=== PATIENT | female | born 1965 ===

== ENCOUNTER 2017-01-28 00:49 | Emergency (ER) | payer MEDICARE, OTHER ==
[2017-01-28 00:49] VITALS: BMI 32.8
[2017-01-28 00:59] VITALS: RESP 20; O2SAT 96
--- NOTE | 2017-01-28 02:15 | C.PDOC ---
History Of Present Illness 51 year old female with an extensive psychiatric Hx who was brought to the ER by relative after he states she was behaving bizarre. As per relative, patient has been "speaking as if there were kids and helicopters around her". Relative also reports patient is noncompliant with her medication; he notes patient is a known patient of Dr. Leslie at the outpatient clinic. Patient has not verbalized any physical complaints at this time. Time Seen by Provider: 01/28/17 01:14 Chief Complaint (Nursing): Psychiatric Evaluation History Per: Patient History/Exam Limitations: no limitations Onset/Duration Of Symptoms: Days Current Symptoms Are (Timing): Still Present Suicide/Self Injury Attempted (Context): None Modifying Factor(s): None Associated Symptoms: denies: Depression, Suicidal Thoughts, Suicidal Plan Involuntary Hold By: None Recent travel outside of the [place]: No Past Medical History Reviewed: Historical Data, Nursing Documentation, Vital Signs Vital Signs: Last Vital Signs Temp 98.2 F 01/28/17 02:20 Pulse 106 H 01/28/17 02:20 Resp 20 01/28/17 02:20 BP 121/80 01/28/17 02:20 Pulse Ox 96 01/28/17 02:42 - Medical History PMH: Anxiety, Back Problems, Bipolar Disorder, Depression, Diabetes, Gastrointestinal Ulcer, Gall Bladder Disease, HTN, Kidney Stones Surgical History: Appendectomy, Cholecystectomy - [facility] Procedures ANESTH INJECT-SPIN CANAL (06/06/14) DRAINAGE OF SIGMOID COLON, ENDO, DIAGN (05/18/16) INDIVID PSYCHOTHERAP NEC (02/12/15) INJECT STEROID (07/18/14) INJECT/INFUSE NEC (07/18/14) INJECTION INTO JOINT (07/18/14) LUMBOSAC SPINE X-RAY NEC (07/18/14) OTHER GROUP THERAPY (02/12/15) PERIPH NERVE DESTRUCTION (09/12/14) PHYSICAL THERAPY NEC (03/26/14) PSYCHIAT DRUG THERAP NEC (02/12/15) SPINAL CANAL INJECT NEC (06/06/14) Family History: States: Unknown Family Hx - Social History Hx Tobacco Use: Yes Hx Alcohol Use: Yes Hx Substance Use: No - Immunization History Hx Tetanus Toxoid Vaccination: No Hx Influenza Vaccination: No Hx Pneumococcal Vaccination: No Review Of Systems Constitutional: Negative for: Fever, Chills Gastrointestinal: Negative for: Nausea, Vomiting, Diarrhea Physical Exam - Physical Exam Appears: Non-toxic, No Acute Distress Skin: Normal Color, Warm, Dry Head: Atraumatic, Normacephalic Eye(s): bilateral: Normal Inspection Oral Mucosa: Moist Cardiovascular: Rhythm Regular Respiratory: Normal Breath Sounds, No Accessory Muscle Use Extremity: Normal ROM Extremity: Bilateral: Atraumatic Neurological/Psych: Oriented x3, Normal Speech, Normal Cognition Gait: Steady ED Course And Treatment O2 Sat by Pulse Oximetry: 96 (Room air) Pulse Ox Interpretation: Normal Progress Note: Patient was evaluated by Crisis and case was discussed with Dr. Reyes who advised to discharge patient and have them follow up with Dr. Leslie at the outpatient clinic. Disposition Counseled Patient/Family Regarding: Diagnosis, Need For Followup, Rx Given - Disposition Disposition: HOME/ ROUTINE Disposition Time: 02:14 Condition: STABLE Additional Instructions: Please keep appointment with Dr Leslie as scheduled for nxt week Continue all your meds Return to ER if worse Instructions: Depression (ED) Forms: [employer] (Pashto) - Clinical Impression Clinical Impression: Moderate major depression, single episode - Scribe Statement The provider has reviewed the documentation as recorded by the Scribnicole Cordova All medical record entries made by the Scribe were at my direction and personally dictated by me. I have reviewed the chart and agree that the record accurately reflects my personal performance of the history, physical exam, medical decision making, and the department course for this patient. I have also personally directed, reviewed, and agree with the discharge instructions and disposition.
[2017-01-28 02:21] VITALS: BP 121/80; PULSE 106; TEMP 98.2
== END 2017-01-28 02:42 | disposition home or self-care (01) ==
LOC: C.ER 00:49
DX: F32.1 Major depressive disorder, single episode, moderate (principal); Z91.14 Patient's other noncompliance with medication regimen

== ENCOUNTER 2017-03-16 18:14 | Emergency (ER) | payer MEDICARE, OTHER ==
[2017-03-16 18:14] VITALS: BMI 32.8
[2017-03-16] MEDS ORDERED: Sodium Chloride 0.9% 1,000 ML IV ONE (19:34)
[2017-03-16 20:09] LABS: CHLORIDE 99 mmol/L (98-107); POTASSIUM 3.8 mmol/L (3.6-5.2); SODIUM 134 mmol/L (132-148)
[2017-03-16 20:11] LABS: ALB/GLOB RATIO 1.3 (1.0-2.1); ALKALINE PHOSPHATASE 62 U/L (38-126); AST/SGOT 49 U/L (14-36); BILIRUBIN,TOTAL 0.4 mg/dL (0.2-1.3); BLOOD UREA NITROGEN 10 mg/dL (7-17); CARBON DIOXIDE 27 mmol/L (22-30); GFR AFRICAN-AMERICAN > 60; TOTAL PROTEIN 6.8 g/dL (6.3-8.3)
[2017-03-16 20:12] LABS: ALT/SGPT 45 U/L (9-52); CALCIUM 9.4 mg/dl (8.6-10.4); GLUCOSE,RANDOM 92 mg/dL (65-105); MAGNESIUM 1.5 mg/dL (1.6-2.3)
[2017-03-16 20:21] LABS: BASO # 0.1 K/uL (0.0-0.2); BASO % 1.1 % (0.0-2.0); EOS # 0.4 K/uL (0.0-0.7); EOS % 3.2 % (0.0-4.0); HEMATOCRIT 39.1 % (34.0-47.0); LYMPH # 5.7 K/uL (1.0-4.3); LYMPH % 48.1 % (20.0-40.0); MEAN CELL VOLUME 92.2 fL (81.0-99.0); MEAN CORPUSCULAR HEMOGLOBIN 31.6 pg (27.0-31.0); MEAN CORPUSCULAR HGB CONC 34.3 g/dL (33.0-37.0); MEAN PLATELET VOLUME 8.5 fL (7.2-11.7); MONO # 0.7 K/uL (0.0-0.8); MONO % 6.1 % (0.0-10.0); RED CELL DISTRIBUTION WIDTH 13.2 % (11.5-14.5); WHITE BLOOD COUNT 11.9 K/uL (4.8-10.8)
[2017-03-16] MEDS ORDERED: Magnesium Sulfate 1 gm in D5W 1 GM/100 ML BAG IVPB ONE ×2 (20:23→20:44)
--- NOTE | 2017-03-16 20:59 | C.PDOC ---
History Of Present Illness Pt c/o right 4th and 5th finger numbness radiating to right elbow. She denies injury, but thinks that she fell asleep on the couch last night leaning on her right elbow. Time Seen by Provider: 03/16/17 19:16 Chief Complaint (Nursing): Weakness/Neurological Deficit History Per: Patient Onset/Duration Of Symptoms: Hrs (since waking up this morning) Current Symptoms Are (Timing): Still Present Quality: Other (tingling/numbness) Severity: Moderate Hands/Wrist (Pic): 1 - Tingling/numbness Additional History Per: Prior Records Past Medical History Reviewed: Historical Data, Nursing Documentation, Vital Signs Vital Signs: Last Vital Signs Temp 98.1 F 03/16/17 18:21 Pulse 89 03/16/17 18:21 Resp 18 03/16/17 18:21 BP 93/64 L 03/16/17 18:21 Pulse Ox 94 L 03/16/17 18:21 - Medical History PMH: Anxiety, Back Problems, Bipolar Disorder, Depression, Diabetes, Gastrointestinal Ulcer, Gall Bladder Disease, HTN, Kidney Stones Surgical History: Appendectomy, Cholecystectomy - [facility] Procedures ANESTH INJECT-SPIN CANAL (06/06/14) DRAINAGE OF SIGMOID COLON, ENDO, DIAGN (05/18/16) INDIVID PSYCHOTHERAP NEC (02/12/15) INJECT STEROID (07/18/14) INJECT/INFUSE NEC (07/18/14) INJECTION INTO JOINT (07/18/14) LUMBOSAC SPINE X-RAY NEC (07/18/14) OTHER GROUP THERAPY (02/12/15) PERIPH NERVE DESTRUCTION (09/12/14) PHYSICAL THERAPY NEC (03/26/14) PSYCHIAT DRUG THERAP NEC (02/12/15) SPINAL CANAL INJECT NEC (06/06/14) Family History: States: Unknown Family Hx - Social History Hx Tobacco Use: Yes Hx Alcohol Use: Yes Hx Substance Use: No - Immunization History Hx Tetanus Toxoid Vaccination: No Hx Influenza Vaccination: No Hx Pneumococcal Vaccination: No Review Of Systems Except As Marked, All Systems Reviewed And Found Negative. Constitutional: Negative for: Fever Cardiovascular: Positive for: Light Headedness. Negative for: Chest Pain Respiratory: Negative for: Shortness of Breath Gastrointestinal: Negative for: Vomiting, Abdominal Pain, Diarrhea Musculoskeletal: Negative for: Neck Pain Skin: Negative for: Rash Neurological: Positive for: Numbness (right 4th and 5th fingers). Negative for : Weakness, Seizures Physical Exam - Physical Exam Appears: Non-toxic, No Acute Distress Skin: Normal Color, Warm, Dry, No Rash Head: Atraumatic, Normacephalic Eye(s): bilateral: PERRL, EOMI Neck: Normal ROM, No Midline Cervical Tenderness, No Step Off Deformity, Supple Cardiovascular: Rhythm Regular Respiratory: Normal Breath Sounds, No Accessory Muscle Use Gastrointestinal/Abdominal: Soft, No Tenderness Back: No CVA Tenderness Extremity: Normal ROM, Tenderness (mild at medial right elbow), Capillary Refill (wnl), No Deformity, No Swelling Extremity: Bilateral: Normal Color And Temperature Pulses: Right Radial: Normal Neurological/Psych: Oriented x3, Normal Motor, No Normal Sensation (numbness to right 5th and half of 4th fingers) ED Course And Treatment - Laboratory Results Result Diagrams: 03/16/17 19:56 03/16/17 19:56 ECG: Interpreted By Me, Viewed By Me ECG Rhythm: Sinus Rhythm ECG Interpretation: No Acute Changes Rate From EC O2 Sat by Pulse Oximetry: 94 Progress - Interventions Interventions:: Observation, Intravenous fluid - Medications Administered Intravenous: NSAID, Other (Mg) - Data Reviewed Data Reviewed: Lab, EKG, Old records - Patient Status Patient status: Partially improved - Continuity of Care Discussed patient case with:: Patient, Family-HIPPA compliant, ED Nurse - Patient Plan Patient Plan: Discharge, F/U with PCP, Continue present meds Disposition Counseled Patient/Family Regarding: Studies Performed, Diagnosis, Need For Followup - Disposition Referrals: Edin Mcfadden MD [Staff Provider] - Disposition: HOME/ ROUTINE Disposition Time: 21:02 Condition: STABLE Additional Instructions: Avoid pressure on your right elbow. Follow up with the Hand specialist this week for further evaluation and treatment. Return to the ER if you develop worsening of symptoms or if you have any other concerns. Instructions: Peripheral Neuropathy (ED) Forms: [employer] (Bahamian) - Clinical Impression Clinical Impression: Ulnar nerve neuropathy
[2017-03-16 21:36] VITALS: BP 92/52; PULSE 78; RESP 16; TEMP 97.6; O2SAT 96
--- NOTE | 2017-03-17 23:45 | CARD ---
APPROVED REPORT EKG Measurement Heart [id number] <Conclusion> Normal sinus rhythm Normal ECG
== END 2017-03-16 21:30 | disposition home or self-care (01) ==
LOC: C.ER 18:14
DX: G56.21 Lesion of ulnar nerve, right upper limb (principal)
CPT/HCPCS: 80053; 83735; 85025; 93005; 96361; 96365; 96375; 99285; J1885; J3475; J7040

== ENCOUNTER 2017-06-18 19:39 | Emergency (ER) | payer MEDICARE, OTHER ==
[2017-06-18 19:39] VITALS: BMI 32.8
[2017-06-18 20:39] VITALS: RESP 16
--- NOTE | 2017-06-18 20:53 | C.PDOC ---
History Of Present Illness <Fito Denise - Last Filed: 06/18/17 20:57> <Jim Massey - Last Filed: 06/19/17 05:57> 52 yr old female with extensive psych history, presents to the ER for acting weird as per room mate who is at bedside. Patient is not compliant with medications. Denies SI, HI, chest pain, SOB, nausea, vomiting, weakness or numbness. (Fito Denise) History Per: Patient History/Exam Limitations: no limitations Onset/Duration Of Symptoms: Days Current Symptoms Are (Timing): Still Present Suicide/Self Injury Attempted (Context): None <Fito Denise - Last Filed: 06/18/17 20:57> <Jim Massey - Last Filed: 06/19/17 05:57> Time Seen by Provider: 06/18/17 20:48 Chief Complaint (Nursing): Psychiatric Evaluation Past Medical History Reviewed: Historical Data, Nursing Documentation, Vital Signs - Medical History PMH: Anxiety, Back Problems, Bipolar Disorder, Depression, Diabetes, Gastrointestinal Ulcer, Gall Bladder Disease, HTN, Kidney Stones Surgical History: Appendectomy, Cholecystectomy Family History: States: No Known Family Hx - Social History Hx Tobacco Use: Yes Hx Alcohol Use: Yes Hx Substance Use: Yes - Immunization History Hx Tetanus Toxoid Vaccination: No Hx Influenza Vaccination: No Hx Pneumococcal Vaccination: No <Fito Denise - Last Filed: 06/18/17 20:57> Vital Signs: Last Vital Signs Temp 9 F L 06/19/17 00:15 Pulse 83 06/19/17 00:15 Resp 16 06/19/17 00:15 BP 115/69 06/19/17 00:15 Pulse Ox 98 06/19/17 00:15 - [facility] Procedures ANESTH INJECT-SPIN CANAL (06/06/14) DRAINAGE OF SIGMOID COLON, ENDO, DIAGN (05/18/16) INDIVID PSYCHOTHERAP NEC (02/12/15) INJECT STEROID (07/18/14) INJECT/INFUSE NEC (07/18/14) INJECTION INTO JOINT (07/18/14) LUMBOSAC SPINE X-RAY NEC (07/18/14) OTHER GROUP THERAPY (02/12/15) PERIPH NERVE DESTRUCTION (09/12/14) PHYSICAL THERAPY NEC (03/26/14) PSYCHIAT DRUG THERAP NEC (02/12/15) SPINAL CANAL INJECT NEC (06/06/14) Review Of Systems Except As Marked, All Systems Reviewed And Found Negative. Cardiovascular: Negative for: Chest Pain Respiratory: Negative for: Shortness of Breath Gastrointestinal: Negative for: Nausea, Vomiting Neurological: Negative for: Weakness, Numbness Psych: Negative for: Suicidal ideation <Fito Denise - Last Filed: 06/18/17 20:57> Physical Exam - Physical Exam Appears: Non-toxic, No Acute Distress Skin: Warm, Dry, No Rash Oral Mucosa: Moist Cardiovascular: Rhythm Regular, No Murmur Respiratory: Normal Breath Sounds, No Rales, No Rhonchi, No Stridor, No Wheezing Extremity: Normal ROM, No Swelling Neurological/Psych: Oriented x3, Normal Speech <Fito Denise - Last Filed: 06/18/17 20:57> ED Course And Treatment O2 Sat by Pulse Oximetry: 96 (RA) Pulse Ox Interpretation: Normal <Fito Denise - Last Filed: 06/18/17 20:57> - Laboratory Results Result Diagrams: 06/18/17 21:18 06/18/17 21:18 Pulse Ox Interpretation: Normal Progress Note: pt cleared for discharg by dr davis. Reevaluation Time: 05:57 Reassessment Condition: Improved <Jim Massey - Last Filed: 06/19/17 05:57> Medical Decision Making <Fito Denise - Last Filed: 06/18/17 20:57> <Jim Massey - Last Filed: 06/19/17 05:57> Medical Decision Making: PLAN: * CBC * CMP * Alcohol Serum * Drug Screen * HCG * Urinalysis (Fito Denise) Disposition <Fito Denise - Last Filed: 06/18/17 20:57> Counseled Patient/Family Regarding: Studies Performed, Diagnosis, Need For Followup - Disposition Disposition Time: 01:00 <Jim Massey - Last Filed: 06/19/17 05:57> - Disposition Disposition: HOME/ ROUTINE Condition: FAIR Instructions: Schizoaffective Disorder (ED) Forms: [employer] (Spanish) - Clinical Impression Clinical Impression: Schizoaffective disorder - Scribe Statement The provider has reviewed the documentation as recorded by the Scribe <Fito Denise - Last Filed: 06/18/17 20:57> <Jim Massey - Last Filed: 06/19/17 05:57> - Scribe Statement Nelda North (Fito Denise) Provider Attestation: All medical record entries made by the Scribe were at my direction and personally dictated by me. I have reviewed the chart and agree that the record accurately reflects my personal performance of the history, physical exam, medical decision making, and the department course for this patient. I have also personally directed, reviewed, and agree with the discharge instructions and disposition. (Fito Denise)
[2017-06-18 21:22] LABS: BASO # 0.1 K/uL (0.0-0.2); BASO % 1.5 % (0.0-2.0); EOS # 0.5 K/uL (0.0-0.7); HEMOGLOBIN 11.9 g/dL (11.0-16.0); LYMPH # 4.7 K/uL (1.0-4.3); LYMPH % 51.9 % (20.0-40.0); MEAN CORPUSCULAR HEMOGLOBIN 32.5 pg (27.0-31.0); MEAN CORPUSCULAR HGB CONC 34.9 g/dL (33.0-37.0); MEAN PLATELET VOLUME 7.8 fL (7.2-11.7); MONO # 0.7 K/uL (0.0-0.8); MONO % 7.4 % (0.0-10.0); NEUT # 3.1 K/uL (1.8-7.0); NEUT % 34.2 % (50.0-75.0); NRBC % 0.1 % (0.0-2.0); RBC 3.68 Mil/uL (3.80-5.20); RED CELL DISTRIBUTION WIDTH 13.6 % (11.5-14.5)
[2017-06-18 21:34] LABS: SALICYLATE < 1.0 mg/dL 1
[2017-06-18 21:35] LABS: ALB/GLOB RATIO 1.1 (1.0-2.1); ALBUMIN 3.4 g/dL (3.5-5.0); ALT/SGPT 27 U/L (9-52); AST/SGOT 17 U/L (14-36); BLOOD UREA NITROGEN 12 mg/dL (7-17); CALCIUM 9.4 mg/dl (8.6-10.4); GFR AFRICAN-AMERICAN > 60; GFR NON-AFRICAN AMERICAN > 60
[2017-06-19 00:16] VITALS: O2SAT 98
[2017-06-19 04:24] LABS: HCG,QUALITATIVE URINE NEGATIVE (NEGATIVE)
[2017-06-19 04:30] LABS: SQUAMOUS EPITHIAL 1 /hpf (0-5); URINE AMORPHOUS SEDIMENT OCC /ul (<OCC); URINE BACTERIA MANY (<OCC); URINE BILIRUBIN NEGATIVE (NEGATIVE); URINE BLOOD NEGATIVE (NEGATIVE); URINE CLARITY Hazy (Clear); URINE COLOR Yellow (YELLOW); URINE GLUCOSE (UA) NORMAL (Normal); URINE LEUKOCYTE ESTERASE TRACE Leu/uL (Negative); URINE NITRATE POSITIVE (NEGATIVE); URINE PROTEIN NEGATIVE (NEGATIVE); URINE UROBILINOGEN NORMAL mg/dL (0.2-1.0)
[2017-06-19 04:39] LABS: BARBITURATES, UR NEGATIVE (NEGATIVE); PHENCYCLIDINE, UR NEGATIVE (NEGATIVE)
[2017-06-19 04:45] LABS: BENZODIAZEPINES, UR POSITIVE (NEGATIVE); OPIATES, UR POSITIVE (NEGATIVE)
[2017-06-19 06:36] VITALS: BP 120/73; PULSE 80; TEMP 98
== END 2017-06-19 06:30 | disposition home or self-care (01) ==
LOC: C.ER 19:39
DX: F25.9 Schizoaffective disorder, unspecified (principal)
CPT/HCPCS: 80053; 81001; 84703; 85025; 99284; G0480

== ENCOUNTER 2017-10-09 15:52 | Emergency (ER) | payer MEDICARE, OTHER ==
[2017-10-09 15:53] VITALS: BMI 32.8
[2017-10-09 16:06] VITALS: O2SAT 96
[2017-10-09 16:30] LABS: BASO # 0.2 K/uL (0.0-0.2); BASO % 1.7 % (0.0-2.0); EOS # 0.5 K/uL (0.0-0.7); EOS % 4.3 % (0.0-4.0); HEMOGLOBIN 13.1 g/dL (11.0-16.0); LYMPH # 5.3 K/uL (1.0-4.3); LYMPH % 46.7 % (20.0-40.0); MEAN CORPUSCULAR HEMOGLOBIN 31.9 pg (27.0-31.0); MEAN CORPUSCULAR HGB CONC 34.3 g/dL (33.0-37.0); MEAN PLATELET VOLUME 8.1 fL (7.2-11.7); MONO # 0.8 K/uL (0.0-0.8); MONO % 6.8 % (0.0-10.0); NEUT # 4.6 K/uL (1.8-7.0); NEUT % 40.5 % (50.0-75.0); NRBC % 0.1 % (0.0-2.0); RBC 4.12 Mil/uL (3.80-5.20); RED CELL DISTRIBUTION WIDTH 13.4 % (11.5-14.5); WHITE BLOOD COUNT 11.3 K/uL (4.8-10.8)
[2017-10-09 16:43] LABS: ALB/GLOB RATIO 1.2 (1.0-2.1); ALBUMIN 3.9 g/dL (3.5-5.0); ALT/SGPT 28 U/L (9-52); AST/SGOT 19 U/L (14-36); BLOOD UREA NITROGEN 14 mg/dL (7-17); CALCIUM 10.1 mg/dl (8.6-10.4); GFR AFRICAN-AMERICAN > 60; GFR NON-AFRICAN AMERICAN > 60
[2017-10-09 16:45] LABS: ACETAMINOPHEN < 10.0 ug/mL (10.0-30.0); SALICYLATE < 1.0 mg/dL 1
[2017-10-09 16:51] LABS: HCG,QUALITATIVE URINE NEGATIVE (NEGATIVE)
[2017-10-09 16:53] LABS: URINE BACTERIA MOD (<OCC); URINE BILIRUBIN NEGATIVE (NEGATIVE); URINE BLOOD NEGATIVE (NEGATIVE); URINE CLARITY Hazy (Clear); URINE COLOR Yellow (YELLOW); URINE GLUCOSE (UA) NORMAL (Normal); URINE LEUKOCYTE ESTERASE NEG Leu/uL (Negative); URINE PROTEIN NEGATIVE (NEGATIVE); URINE UROBILINOGEN NORMAL mg/dL (0.2-1.0)
[2017-10-09] MEDS ORDERED: Tmp-Smz 800 mg-160 mg DS Tab PO STA (17:04)
[2017-10-09 17:06] LABS: BARBITURATES, UR NEGATIVE (NEGATIVE); OPIATES, UR NEGATIVE (NEGATIVE); PHENCYCLIDINE, UR NEGATIVE (NEGATIVE)
[2017-10-09 17:07] LABS: BENZODIAZEPINES, UR POSITIVE (NEGATIVE)
--- NOTE | 2017-10-09 17:20 | C.PDOC ---
History Of Present Illness 52 y/o female presents to ED for complaints of SI. Patient states symptoms began after an argument with spouse. Admits to alcohol and cocain use for the past 4 weeks. Denies auditory or visual hallucination, or any other complaints. Time Seen by Provider: 10/09/17 16:00 Chief Complaint (Nursing): Psychiatric Evaluation History Per: Patient History/Exam Limitations: no limitations Onset/Duration Of Symptoms: Hrs Current Symptoms Are (Timing): Still Present Suicide/Self Injury Attempted (Context): None Modifying Factor(s): Alcohol, Cocaine Associated Symptoms: Suicidal Thoughts. denies: Suicidal Plan Involuntary Hold By: None Recent travel outside of the [place]: No Past Medical History Reviewed: Historical Data, Nursing Documentation, Vital Signs Vital Signs: Last Vital Signs Temp 97.6 F 10/09/17 18:26 Pulse 64 10/09/17 18:26 Resp 14 10/09/17 18:26 BP 100/65 10/09/17 18:26 Pulse Ox 96 10/09/17 18:26 - Medical History PMH: Anxiety, Back Problems, Bipolar Disorder, Depression, Diabetes, Gastrointestinal Ulcer, Gall Bladder Disease, HTN, Kidney Stones Surgical History: Appendectomy, Cholecystectomy - [facility] Procedures ANESTH INJECT-SPIN CANAL (06/06/14) DRAINAGE OF SIGMOID COLON, ENDO, DIAGN (05/18/16) INDIVID PSYCHOTHERAP NEC (02/12/15) INJECT STEROID (07/18/14) INJECT/INFUSE NEC (07/18/14) INJECTION INTO JOINT (07/18/14) LUMBOSAC SPINE X-RAY NEC (07/18/14) OTHER GROUP THERAPY (02/12/15) PERIPH NERVE DESTRUCTION (09/12/14) PHYSICAL THERAPY NEC (03/26/14) PSYCHIAT DRUG THERAP NEC (02/12/15) SPINAL CANAL INJECT NEC (06/06/14) Family History: States: Unknown Family Hx - Social History Hx Tobacco Use: Yes Hx Alcohol Use: Yes Hx Substance Use: Yes - Immunization History Hx Tetanus Toxoid Vaccination: No Hx Influenza Vaccination: No Hx Pneumococcal Vaccination: No Review Of Systems Except As Marked, All Systems Reviewed And Found Negative. Psych: Positive for: Suicidal ideation Physical Exam - Physical Exam Appears: Well, Non-toxic, No Acute Distress Skin: Normal Color, Warm, Dry Head: Atraumatic, Normacephalic Eye(s): bilateral: Normal Inspection, PERRL, EOMI Oral Mucosa: Moist Neck: Supple Chest: Symmetrical, No Tenderness Cardiovascular: Rhythm Regular Respiratory: Normal Breath Sounds, No Decreased Breath Sounds, No Rales, No Rhonchi, No Wheezing Gastrointestinal/Abdominal: Normal Exam, Soft, No Tenderness Extremity: Normal ROM, No Deformity Extremity: Bilateral: Atraumatic, Normal Color And Temperature, Normal ROM Neurological/Psych: Oriented x3, Normal Speech, Normal Cognition Gait: Steady ED Course And Treatment - Laboratory Results Result Diagrams: 10/09/17 16:25 10/09/17 16:25 O2 Sat by Pulse Oximetry: 96 (RA) Pulse Ox Interpretation: Normal Medical Decision Making Medical Decision Making: Administered bactrim. Ordered urine culture, blood work and urinalysis. Crisis notified. Impression: - SI Patient is medically cleared by crisis. Disposition - Disposition Disposition Time: 19:00 Condition: STABLE Forms: [email or web address] (Romanian) - Clinical Impression Clinical Impression: Suicide ideation, Substance abuse - Scribe Statement The provider has reviewed the documentation as recorded by the Scribe Austin Gardner All medical record entries made by the Scribe were at my direction and personally dictated by me. I have reviewed the chart and agree that the record accurately reflects my personal performance of the history, physical exam, medical decision making, and the department course for this patient. I have also personally directed, reviewed, and agree with the discharge instructions and disposition. Physician Patient Turnover Patient Signed Over To: Jim Massey Handoff Comments: pending crisis evaluation and disposition
[2017-10-09 18:27] VITALS: BP 100/65; PULSE 64; RESP 14; TEMP 97.6
[2017-10-09] MEDS ORDERED: Tmp-Smz 800 mg-160 mg DS Tab ONE (18:30)
== END 2017-10-09 19:13 | disposition home or self-care (01) ==
LOC: C.ER 15:52
DX: F32.9 Major depressive disorder, single episode, unspecified (principal); R45.851 Suicidal ideations; F19.10 Other psychoactive substance abuse, uncomplicated
CPT/HCPCS: 80053; 81001; 82948; 84703; 85025; 99285; G0480

== ENCOUNTER 2017-11-12 15:54 | Inpatient (IN) | payer MEDICARE, OTHER ==
[2017-11-12 15:54] VITALS: BMI 32.8
--- NOTE | 2017-11-12 17:37 | C.PDOC ---
History Of Present Illness <Matthew Weston - Last Filed: 11/12/17 17:43> <Babar Layne - Last Filed: 11/12/17 19:43> 52-year-old female presents to the ED for psychiatric evaluation. Patient has been experiencing manic episodes and admits to opioid use. She denies sucidal/ homicidal ideation at this time. (Matthew Weston) History Per: Patient History/Exam Limitations: no limitations Onset/Duration Of Symptoms: Hrs Current Symptoms Are (Timing): Still Present Suicide/Self Injury Attempted (Context): None Associated Symptoms: denies: Suicidal Thoughts, Suicidal Plan Additional History Per: Patient <Matthew Weston - Last Filed: 11/12/17 17:43> <Babar Layne - Last Filed: 11/12/17 19:43> Time Seen by Provider: 11/12/17 17:10 Chief Complaint (Nursing): Psychiatric Evaluation Past Medical History Reviewed: Historical Data, Nursing Documentation, Vital Signs - Medical History PMH: Anxiety, Back Problems, Bipolar Disorder, Depression, Diabetes, Gastrointestinal Ulcer, Gall Bladder Disease, HTN, Kidney Stones Denies: Hepatitis, HIV, Seizures, Sexually Transmitted Disease Surgical History: Appendectomy, Cholecystectomy Family History: States: Unknown Family Hx - Social History Hx Tobacco Use: Yes Hx Alcohol Use: No Hx Substance Use: Yes - Immunization History Hx Tetanus Toxoid Vaccination: No Hx Influenza Vaccination: No Hx Pneumococcal Vaccination: No <Matthew Weston - Last Filed: 11/12/17 17:43> Vital Signs: Last Vital Signs Temp 98.2 F 11/12/17 18:56 Pulse 73 11/12/17 18:56 Resp 20 11/12/17 18:56 BP 101/66 11/12/17 18:56 Pulse Ox 96 11/12/17 18:56 - [facility] Procedures ANESTH INJECT-SPIN CANAL (06/06/14) DRAINAGE OF SIGMOID COLON, ENDO, DIAGN (05/18/16) INDIVID PSYCHOTHERAP NEC (02/12/15) INJECT STEROID (07/18/14) INJECT/INFUSE NEC (07/18/14) INJECTION INTO JOINT (07/18/14) LUMBOSAC SPINE X-RAY NEC (07/18/14) OTHER GROUP THERAPY (02/12/15) PERIPH NERVE DESTRUCTION (04/22/15) PHYSICAL THERAPY NEC (03/26/14) PSYCHIAT DRUG THERAP NEC (02/12/15) SPINAL CANAL INJECT NEC (06/06/14) Review Of Systems Psych: Positive for: Other (manic episodes ). Negative for: Suicidal ideation <Matthew Weston - Last Filed: 11/12/17 17:43> Physical Exam <Matthew Weston T - Last Filed: 11/12/17 17:43> <Babar Layne R - Last Filed: 11/12/17 19:43> - Physical Exam Additional Physical Exam Comments: Constitutional: No acute distress. Head: Normocephalic. Atraumatic. Eyes: PERRL. ENT: Moist mucous membranes. Neck: Supple. Cardiovascular: Regular rate. Chest: No tenderness. Respiratory: Clear to auscultation bilaterally. GI: Soft. Back: No CVA tenderness. Musculoskeletal: No tenderness or swelling of extremities. Skin: No rash. Neurologic: Alert, no focal deficit. (EnricoMatthew Lor) ED Course And Treatment O2 Sat by Pulse Oximetry: 96 (on RA) Pulse Ox Interpretation: Normal Progress Note: Bloodwork and urinalysis ordered and reviewed. <Matthew Weston - Last Filed: 11/12/17 17:43> - Laboratory Results Result Diagrams: 11/12/17 18:44 11/12/17 18:44 <Babar Layne R - Last Filed: 11/12/17 19:43> Disposition <Matthew Weston - Last Filed: 11/12/17 17:43> Discussed With : Billy Leslie Doctor Will See Patient In The: Hospital Counseled Patient/Family Regarding: Diagnosis - Disposition Disposition Time: 19:42 - POA Present On Arrival: None <Babar Layne R - Last Filed: 11/12/17 19:43> - Disposition Disposition: HOSPITALIZED Condition: STABLE Forms: [employer] (Uzbek) - Clinical Impression Clinical Impression: Bipolar disorder - Scribe Statement The provider has reviewed the documentation as recorded by the Scribe (Meera Cardoza) <Matthew Weston T - Last Filed: 11/12/17 17:43> <Babar Layne R - Last Filed: 11/12/17 19:43> - Scribe Statement Provider Attestation: All medical record entries made by the Scribe were at my direction and personally dictated by me. I have reviewed the chart and agree that the record accurately reflects my personal performance of the history, physical exam, medical decision making, and the department course for this patient. I have also personally directed, reviewed, and agree with the discharge instructions and disposition. (Enrico,Matthew Horowitz)
[2017-11-12 18:49] LABS: BASO # 0.1 K/uL (0.0-0.2); BASO % 1.2 % (0.0-2.0); EOS # 0.5 K/uL (0.0-0.7); EOS % 3.9 % (0.0-4.0); HEMOGLOBIN 13.5 g/dL (11.0-16.0); LYMPH # 4.8 K/uL (1.0-4.3); LYMPH % 38.8 % (20.0-40.0); MEAN CORPUSCULAR HEMOGLOBIN 31.2 pg (27.0-31.0); MEAN CORPUSCULAR HGB CONC 33.9 g/dL (33.0-37.0); MEAN PLATELET VOLUME 8.3 fL (7.2-11.7); MONO # 0.7 K/uL (0.0-0.8); MONO % 6.1 % (0.0-10.0); NEUT # 6.2 K/uL (1.8-7.0); NRBC % 0.1 % (0.0-2.0); RBC 4.33 Mil/uL (3.80-5.20); RED CELL DISTRIBUTION WIDTH 13.7 % (11.5-14.5); WHITE BLOOD COUNT 12.3 K/uL (4.8-10.8)
[2017-11-12 18:52] LABS: HCG,QUALITATIVE URINE NEGATIVE (NEGATIVE)
[2017-11-12 18:54] LABS: SQUAMOUS EPITHIAL 28 /hpf (0-5); URINE BILIRUBIN NEGATIVE (NEGATIVE); URINE BLOOD NEGATIVE (NEGATIVE); URINE CLARITY Hazy (Clear); URINE COLOR YELLOW (YELLOW); URINE GLUCOSE (UA) NORMAL (Normal); URINE HYALINE CAST 0-2 /lpf (0-2); URINE LEUKOCYTE ESTERASE 3+ Leu/uL (Negative); URINE PROTEIN NEGATIVE (NEGATIVE); URINE UROBILINOGEN NORMAL mg/dL (0.2-1.0)
[2017-11-12 18:55] LABS: URINE BACTERIA MANY (<OCC)
[2017-11-12 19:03] LABS: ALB/GLOB RATIO 1.2 (1.0-2.1); ALBUMIN 4.3 g/dL (3.5-5.0); ALT/SGPT 16 U/L (9-52); AST/SGOT 24 U/L (14-36); BLOOD UREA NITROGEN 15 mg/dL (7-17); CALCIUM 10.1 mg/dl (8.6-10.4); GFR AFRICAN-AMERICAN > 60; GFR NON-AFRICAN AMERICAN > 60
[2017-11-12 19:11] LABS: BARBITURATES, UR NEGATIVE (NEGATIVE); OPIATES, UR NEGATIVE (NEGATIVE); PHENCYCLIDINE, UR NEGATIVE (NEGATIVE)
[2017-11-12 19:13] LABS: BENZODIAZEPINES, UR POSITIVE (NEGATIVE)
--- NOTE | 2017-11-12 20:23 | PCM.BM ---
<Estrella Spaulding - Last Filed: 11/12/17 20:20> Treatment Plan Problems - Problems identified on initial assessmt Depression Date Initiated: 11/12/17 Time Initiated: 20: Assessment reference: NA Status: Active Substance Abuse Date Initiated: 11/12/17 Time Initiated: 20:21 Assessment reference: NA Status: Active Treatment assets and liabiliti Patient Assests: adapts well, cooperative, educated, motivated, ADL independent , negotiates basic needs, cognitively intact Patient Liabilities: live alone (Lives with aunt), physical pain, financial problems, substance abuse (xanax, Cocaine), medical problems (HTN, stones, Gall bladder) - Milieu Protocol Maintain good personal hygiene: daily Encourage regular showers, daily Remind patient to perform daily oral care, daily Assist patient to perform ADL's (Self) Conduct patient checks and document Observation sheet: Q15 minutes (safety) Maintain personal safety: every shift Educate patient to report safety concerns to staff, every shift Monitor environment for contraband/sharps Medication safety: Monitor for expected outcome, potential side effects: every shift, Assess barriers to learning: every shift, Assess readiness for medication education: every shift <Jaylin Jara - Last Filed: 11/15/17 11:09> Family Contact Family involvement: Patient does not wish Family/SO involvement Family contact: Patient declines to allow family contact at present - Goals for Treatment Patient goals for treatment: "I want to return to [facility] Discharge/Continuing Care - Education Needs Education Needs: Patient Medication, Patient Diagnosis/Disease Process, Patient Coping Skills, Patient Community resources, Patient Activities of Daily Living - Discharge Discharge Criteria: Free of Suicidal thoughts, Normal sleep pattern, Ability to care for self, No longer exhibiting s/s of withdrawal, Reduction of target symptoms Discharge to:: Home - Treatment Team Participation Discussed with Family/SO: No Was Patient/Family/SO present at Treatment Team Meeting: Yes <Marce Salinas - Last Filed: 11/15/17 11:15> Discharge/Continuing Care - Education Needs Education Needs: Patient Medication, Patient Coping Skills
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
--- NOTE | 2017-11-14 21:29 | PCM.PYCHPN ---
Psychiatric Progress Note - Psychiatric Progress Note Patient seen today, length of contact: 15 minutes Patient Chief Complaint: I am not feeling much better. Problems Identified/Issues Discussed: Patient seen, chart reviewed, case discussed with the staff.. Issues related to illness and treatment were discussed with the patient. Reported compliant with treatment with no adverse effects. Tolerating treatment very well. Reported not feeling much better. A Tamiflu evaluation, patient was awake alert oriented x3, had no delusions, no auditory or visual hallucinations, no suicidal ideations or homicidal ideations. Medical Problems: Degenerative disc disease Diagnostic Results: Reviewed DSM 5 Symptoms Update: Some improvement with treatment Medication Change: No Medical Record Reviewed: Yes Mental Status Examination - Cognitive Function Orientation: Person, Place, Situation, Time Memory: Intact Attention: WNL Concentration: WNL Association: WN Fund of Knowledge: [facility] Decription of patient's judgement and insights: Fair - Mood Mood: Depressed - Affect Affect: Depressed - Speech Speech: Appropriate - Formal Thought Process Formal Thought Process: No Impairment Psychotic Thoughts and Behaviors: None - Suicidal Ideation Suicidal Ideation: No - Homicidal Ideation Homicidal Ideation: No Goal/Treatment Plan - Goal/Treatment Plan Need for Continued Stay: Remain at risks for inpatient hospitalization, Discharge may exacerbated symptoms, Severe functional impairment Progress Toward Problem(s) and Goals/Treatment Plan: Patient education. Supportive therapy. CBT for relapse prevention. SC for abstinence. Continue treatment as before. Estimated Date of D/C: 11/23/17 - Smoking Cessation Smoking Cessation Initiated: Yes
[2017-11-15] MEDS ORDERED: Pneumococcal 23-Valent Vaccine IM ONE (10:00)
--- NOTE | 2017-11-15 14:07 | PCM.PYCHPN ---
Psychiatric Progress Note - Psychiatric Progress Note Patient seen today, length of contact: 15 minutes Medication Change: No Medical Record Reviewed: Yes Mental Status Examination - Cognitive Function Orientation: Person, Place, Situation, Time Memory: Intact Attention: WNL Concentration: WNL Association: WNL Fund of Knowledge: WNL - Mood Mood: Depressed - Affect Affect: Depressed - Speech Speech: Appropriate - Formal Thought Process Formal Thought Process: No Impairment - Suicidal Ideation Suicidal Ideation: No - Homicidal Ideation Homicidal Ideation: No Goal/Treatment Plan - Goal/Treatment Plan Need for Continued Stay: Remain at risks for inpatient hospitalization, Discharge may exacerbated symptoms, Severe functional impairment Estimated Date of D/C: 11/23/17
[2017-11-16 06:44] VITALS: RESP 18; O2SAT 100
[2017-11-17 06:24] VITALS: BP 108/60; PULSE 80; TEMP 98.1
--- NOTE | 2017-11-17 09:58 | PCM.PYCHDC ---
Mental Status Examination - Mental Status Examination Orientation: Person, Place, Situation, Time Memory: Intact Mood: Neutral Affect: Constricted Speech: Soft Attention: WNL Concentration: WNL Association: WNL Fund of Knowledge: WNL Formal Thought Process: No Impairment Description of patient's judgement and insight: good, fair Psychotic Thoughts and Behaviors: denies any AVH Suicidal Ideation: No Current Homicidal Ideation?: No Discharge Summary - Discharge Note Reason for Hospitalization: serena is a 52 years old, single, unemployed, female with history of depression and cocaine use was admitted due to worsening of depression and suicidal ideations. Patient who is depressed for last 4 years came with worsening of depression since July 2017 after broke up with boyfriend., decreased sleep and appetite, lost some weight. Suicidal ideations with plan but refused to discuss the plan. History of 2 previous suicidal attempts. First attempt at 19 years of age by cutting on wrists and second attempt at 38 years of age by overdose on sleeping pills. Was admitted in the hospital. Patient has history of 6 inpatient psychiatric admissions.Patient also reported that she hear whispers. Could not elaborate the content of voices. Currently patient was getting treatment from psychiatrist. Patient was getting Celexa 40 mg daily, Remeron 45 mg at bedtime, Xanax, Zyban and Invega Sustinna injection, 234 mg every month , last head 2 days ago. Cocaine: Started at 19 years of age, currently was using 2-3 bags per week, sniffing. Her longest period of abstinence was 4 years from 3714-9143. Percocet: Started in 2013. According to patient she was taking as prescribed but family reported she is abusing Percocet. Smokes 1 pack of cigarettes daily and is requesting for nicotine patch. Patient was born in [place] has a bachelor's degree. Not working since 2013 , on [employer]. Never and has 3 daughters. Patient lives with her aunt. Her height is 5 feet 7 inches and weight is 180 pounds. Consultations:: List each consultation separately and include: 1. Reason for request. 2. Findings. 3. Follow-up Summary of Hospital Course include:: 1. Description of specific treatment plan utilized for patients during their course of treatmen. 2. Summarize the time- course for resolution of acute symptoms and/or regressed behaviors. 3. Describe issues identified and worked on during hospitalization. 4. Describe medication utilized. 5. Describe medical problems identified and treated. 6. Reassessment of suicide risk - Final Diagnosis (DSM 5) Condition upon Discharge: STABLE DSM 5: Major depressive disorder recurrent severe with psychotic features. Cocaine use disorder severe Rule out opioid use disorder Disposition: HOME/ ROUTINE Prescriptions/Medication Reconciliation: Citalopram [celEXA] 40 mg PO DAILY #30 tab Navarro Carbonate [Navarro Carbonate 300MG] 300 mg PO TID #90 cap Mirtazapine [Remeron] 45 mg PO HS #30 tab traZODone [Desyrel] 100 mg PO HS PRN #60 tab PRN Reason: Insomnia
== END 2017-11-17 10:00 | disposition home or self-care (01) | DRG 885 ==
LOC: C.ER 15:54 → C.5E 19:43
PROC: GZHZZZZ Group Psychotherapy (ICD-10-PCS; principal; 2017-11-12)
PROC: GZ58ZZZ Individual Psychotherapy, Cognitive-Behavioral (ICD-10-PCS; 2017-11-12)
PROC: GZ56ZZZ Individual Psychotherapy, Supportive (ICD-10-PCS; 2017-11-12)
DX: F33.3 Major depressive disorder, recurrent, severe with psychotic symptoms (principal); F14.20 Cocaine dependence, uncomplicated; R45.851 Suicidal ideations; F17.210 Nicotine dependence, cigarettes, uncomplicated; I10 Essential (primary) hypertension; E11.9 Type 2 diabetes mellitus without complications; Z81.8 Family history of other mental and behavioral disorders

== ENCOUNTER 2017-11-23 08:03 | Emergency (ER) | payer MEDICARE, OTHER ==
[2017-11-23 08:03] VITALS: BMI 32.8
[2017-11-23 08:48] VITALS: RESP 18; TEMP 98.8
[2017-11-23 09:30] LABS: BASO # 0.2 K/uL (0.0-0.2); BASO % 1.4 % (0.0-2.0); EOS # 0.6 K/uL (0.0-0.7); EOS % 4.2 % (0.0-4.0); HEMOGLOBIN 12.7 g/dL (11.0-16.0); LYMPH % 36.4 % (20.0-40.0); MEAN CELL VOLUME 93.4 fL (81.0-99.0); MEAN CORPUSCULAR HGB CONC 34.3 g/dL (33.0-37.0); MEAN PLATELET VOLUME 8.2 fL (7.2-11.7); MONO % 7.5 % (0.0-10.0); NEUT # 6.9 K/uL (1.8-7.0); NEUT % 50.5 % (50.0-75.0); RBC 3.97 Mil/uL (3.80-5.20); RED CELL DISTRIBUTION WIDTH 13.4 % (11.5-14.5); WHITE BLOOD COUNT 13.6 K/uL (4.8-10.8)
[2017-11-23 09:31] LABS: HCG,QUALITATIVE URINE NEGATIVE (NEGATIVE)
[2017-11-23 09:36] LABS: SQUAMOUS EPITHIAL 5 /hpf (0-5); URINE BACTERIA OCC (<OCC); URINE BILIRUBIN NEGATIVE (NEGATIVE); URINE BLOOD NEGATIVE (NEGATIVE); URINE CLARITY Hazy (Clear); URINE COLOR Yellow (YELLOW); URINE GLUCOSE (UA) NORMAL (Normal); URINE LEUKOCYTE ESTERASE 2+ Leu/uL (Negative); URINE PROTEIN NEGATIVE (NEGATIVE); URINE UROBILINOGEN NORMAL mg/dL (0.2-1.0)
[2017-11-23 09:46] LABS: ALB/GLOB RATIO 1.2 (1.0-2.1); ALBUMIN 3.7 g/dL (3.5-5.0); ALT/SGPT 18 U/L (9-52); AST/SGOT 24 U/L (14-36); BLOOD UREA NITROGEN 9 mg/dL (7-17); CALCIUM 9.9 mg/dl (8.6-10.4); GFR AFRICAN-AMERICAN > 60; GFR NON-AFRICAN AMERICAN > 60
--- NOTE | 2017-11-23 09:48 | C.PDOC ---
History Of Present Illness suicidal for the past three days. Patient is also requesting detox, because she has been abusing Percocet and opiates. Patient states she is suicidal because she wants detox. The patient states she has no other complaints. Time Seen by Provider: 11/23/17 08:27 Chief Complaint (Nursing): Psychiatric Evaluation History Per: Patient History/Exam Limitations: no limitations Current Symptoms Are (Timing): Still Present Past Medical History Reviewed: Historical Data, Nursing Documentation, Vital Signs Vital Signs: Last Vital Signs Temp 98.8 F 11/23/17 10:20 Pulse 65 11/23/17 10:20 Resp 18 11/23/17 10:20 BP 110/71 11/23/17 10:20 Pulse Ox 96 11/23/17 10:20 - Medical History PMH: Anxiety, Back Problems, Bipolar Disorder, Depression, Diabetes, Gastrointestinal Ulcer, Gall Bladder Disease, HTN, Kidney Stones, Chronic Kidney Disease Surgical History: Appendectomy, Cholecystectomy - [facility] Procedures ANESTH INJECT-SPIN CANAL (06/06/14) DRAINAGE OF SIGMOID COLON, ENDO, DIAGN (05/18/16) GROUP PSYCHOTHERAPY (11/12/17) INDIVID PSYCHOTHERAP NEC (02/12/15) INDIVIDUAL PSYCHOTHERAPY, COGNITIVE-BEHAVIORAL (11/12/17) INDIVIDUAL PSYCHOTHERAPY, SUPPORTIVE (11/12/17) INJECT STEROID (07/18/14) INJECT/INFUSE NEC (07/18/14) INJECTION INTO JOINT (07/18/14) LUMBOSAC SPINE X-RAY NEC (07/18/14) OTHER GROUP THERAPY (02/12/15) PERIPH NERVE DESTRUCTION (09/12/14) PHYSICAL THERAPY NEC (03/26/14) PSYCHIAT DRUG THERAP NEC (02/12/15) SPINAL CANAL INJECT NEC (06/06/14) Family History: States: No Known Family Hx - Social History Hx Tobacco Use: Yes Hx Alcohol Use: No Hx Substance Use: Yes - Immunization History Hx Tetanus Toxoid Vaccination: No Hx Influenza Vaccination: No Hx Pneumococcal Vaccination: No Review Of Systems Constitutional: Negative for: Fever, Chills Cardiovascular: Negative for: Chest Pain Respiratory: Negative for: Shortness of Breath Gastrointestinal: Negative for: Vomiting Skin: Negative for: Rash Neurological: Negative for: Weakness, Numbness, Headache, Dizziness Psych: Positive for: Suicidal ideation. Negative for: Psychosis, Withdrawal Physical Exam - Physical Exam Appears: Non-toxic, No Acute Distress Skin: Normal Color, Warm, Dry, No Rash Head: Atraumatic, Normacephalic Eye(s): bilateral: Normal Inspection, PERRL, EOMI Nose: Normal Oral Mucosa: Moist Neck: Normal ROM, Supple Chest: Symmetrical, No Tenderness Cardiovascular: Rhythm Regular, No Friction Rub, No Murmur Respiratory: Normal Breath Sounds, No Rales, No Rhonchi, No Stridor, No Wheezing Gastrointestinal/Abdominal: Normal Exam, Soft, No Tenderness Back: Normal Inspection, No CVA Tenderness Extremity: Normal ROM, No Deformity, No Swelling Neurological/Psych: Oriented x3, Normal Speech, Normal Motor Gait: Steady ED Course And Treatment - Laboratory Results Result Diagrams: 11/23/17 09:17 11/23/17 09:17 O2 Sat by Pulse Oximetry: 94 (on RA) Pulse Ox Interpretation: Normal Medical Decision Making Medical Decision Making: evaluated by crisis, case discussed with psychiatrist graphics production specialist, who deems patient does not require admission at this time. Disposition - Disposition Referrals: [facility] [Outside] Disposition: HOME/ ROUTINE Disposition Time: 09:46 Condition: STABLE Additional Instructions: Follow up with outpatient psych within 2-3 days. Return if worsened. Instructions: Bipolar Disorder (DC) Forms: [email or web address] ([place]am[place]ian) - Clinical Impression Clinical Impression: Bipolar disorder, Opiate abuse, episodic - Scribe Statement The provider has reviewed the documentation as recorded by the Scribe (Mallika Cordova) All medical record entries made by the Scribe were at my direction and personally dictated by me. I have reviewed the chart and agree that the record accurately reflects my personal performance of the history, physical exam, medical decision making, and the department course for this patient. I have also personally directed, reviewed, and agree with the discharge instructions and disposition.
[2017-11-23 10:15] LABS: BARBITURATES, UR NEGATIVE (NEGATIVE); PHENCYCLIDINE, UR NEGATIVE (NEGATIVE)
[2017-11-23 10:21] VITALS: BP 110/71; PULSE 65
[2017-11-23 11:18] LABS: BENZODIAZEPINES, UR POSITIVE (NEGATIVE); OPIATES, UR POSITIVE (NEGATIVE)
[2017-11-23 11:29] VITALS: O2SAT 94
== END 2017-11-23 10:20 | disposition home or self-care (01) ==
LOC: C.ER 08:03
DX: F31.9 Bipolar disorder, unspecified (principal); F11.10 Opioid abuse, uncomplicated

== ENCOUNTER 2017-11-25 07:06 | Inpatient (IN) | payer MEDICARE, OTHER ==
[2017-11-25 07:06] VITALS: BMI 32.8
--- NOTE | 2017-11-25 08:01 | C.PDOC ---
History Of Present Illness 52 y/o female with hx of opioid abuse, and bipolar disorder brought to ed by aunt, with who she lives, for multiple falls in the last few days. per triage, pt has take 55/90 pills of narcotic medications since refilled on 11/19. pt c/o pain to knee. hand. ankle from bruises from falls. denies hi and si. pt seen in ed 2 days ago, discharged, has not followed up with psychiatry. Time Seen by Provider: 11/25/17 07:20 Chief Complaint (Nursing): Substance Abuse History Per: Patient History/Exam Limitations: no limitations Onset/Duration Of Symptoms: Days Current Symptoms Are (Timing): Still Present Suicide/Self Injury Attempted (Context): None Modifying Factor(s): Narcotics Past Medical History Reviewed: Historical Data, Nursing Documentation, Vital Signs Vital Signs: Last Vital Signs Temp 99.2 F 11/25/17 16:00 Pulse 93 H 11/25/17 16:00 Resp 20 11/25/17 16:00 BP 111/73 11/25/17 16:00 Pulse Ox 95 11/25/17 16:00 - Medical History PMH: Anxiety, Back Problems, Bipolar Disorder, Depression, Diabetes, Gastrointestinal Ulcer, Gall Bladder Disease, HTN, Kidney Stones, Chronic Kidney Disease Surgical History: Appendectomy, Cholecystectomy - [facility] Procedures ANESTH INJECT-SPIN CANAL (06/06/14) DRAINAGE OF SIGMOID COLON, ENDO, DIAGN (05/18/16) GROUP PSYCHOTHERAPY (11/12/17) INDIVID PSYCHOTHERAP NEC (02/12/15) INDIVIDUAL PSYCHOTHERAPY, COGNITIVE-BEHAVIORAL (11/12/17) INDIVIDUAL PSYCHOTHERAPY, SUPPORTIVE (11/12/17) INJECT STEROID (07/18/14) INJECT/INFUSE NEC (07/18/14) INJECTION INTO JOINT (07/18/14) LUMBOSAC SPINE X-RAY NEC (07/18/14) OTHER GROUP THERAPY (02/12/15) PERIPH NERVE DESTRUCTION (09/12/14) PHYSICAL THERAPY NEC (03/26/14) PSYCHIAT DRUG THERAP NEC (02/12/15) SPINAL CANAL INJECT NEC (06/06/14) Family History: States: No Known Family Hx - Social History Hx Tobacco Use: Yes Hx Alcohol Use: No Hx Substance Use: Yes - Immunization History Hx Tetanus Toxoid Vaccination: No Hx Influenza Vaccination: No Hx Pneumococcal Vaccination: No Review Of Systems Eyes: Positive for: Pain, Eyelid Inflammation. Negative for: Vision Change ENT: Positive for: Nose Pain Cardiovascular: Negative for: Chest Pain Respiratory: Negative for: Cough, Shortness of Breath Gastrointestinal: Negative for: Nausea, Vomiting Skin: Negative for: Rash Physical Exam - Physical Exam Appears: Non-toxic, No Acute Distress Skin: Warm, Dry, No Rash Head: Tenderness (orbital), Swelling (right side of face) Eye(s): bilateral: PERRL, EOMI, right: Other (upper eyelid swelling, purplish eyelid) Nose: No Epistaxis, Tenderness, No Septal Hematoma, Other (dried blood in nares) Oral Mucosa: Moist Neck: Normal ROM, No Midline Cervical Tenderness, Supple Cardiovascular: Rhythm Regular Respiratory: Normal Breath Sounds, No Rales, No Rhonchi, No Wheezing Gastrointestinal/Abdominal: Soft, No Tenderness, No Guarding, No Rebound Extremity: Capillary Refill (<2 seconds), No Deformity, Other (multiple contusions to left knee, left medial foot dorsum left foot, right lateral ankle and left hand with swelling noted. ) Pulses: Left Dorsalis Pedis: Normal, Right Dorsalis Pedis: Normal Neurological/Psych: Oriented x3, Normal Speech, Cerebellar Signs, Normal Motor, Normal Sensation, Other (sleepy, easily aroused. ) ED Course And Treatment - Laboratory Results Result Diagrams: 11/25/17 11:34 11/25/17 11:34 O2 Sat by Pulse Oximetry: 96 (RA) Medical Decision Making Medical Decision Making: discussed with Dr Peterson, admit to his service Disposition Discussed With : Eduard Peterson Doctor Will See Patient In The: Hospital - Disposition Disposition: HOSPITALIZED Disposition Time: 12:38 Condition: STABLE - Clinical Impression Clinical Impression: Opioid abuse, Closed right ankle fracture, Foot fracture, left, Fever - PA / ZINC ETCHER / Resident Statement MD/DO has reviewed & agrees with the documentation as recorded. - Scribe Statement The provider has reviewed the documentation as recorded by the Abbe Hale All medical record entries made by the Abbe were at my direction and personally dictated by me. I have reviewed the chart and agree that the record accurately reflects my personal performance of the history, physical exam, medical decision making, and the department course for this patient. I have also personally directed, reviewed, and agree with the discharge instructions and disposition.
--- NOTE | 2017-11-25 09:12 | CT ---
PROCEDURE: CT HEAD WITHOUT CONTRAST. HISTORY: fell, hit head COMPARISON: None available. TECHNIQUE: Axial computed tomography images were obtained through the head/brain without intravenous contrast. Radiation dose: Total exam DLP = 886 mGy-cm. This CT exam was performed using one or more of the following dose reduction techniques: Automated exposure control, adjustment of the mA and/or kV according to patient size, and/or use of iterative reconstruction technique. FINDINGS: HEMORRHAGE: No intracranial hemorrhage. Increased hyperdensity at the level of right cerebellum on series 4 images 14-17 is likely related to the right transverse sinus and related to patient positioning. Clinical correlation. BRAIN: No mass effect or edema. No atrophy or chronic microvascular ischemic changes. VENTRICLES: Unremarkable. No hydrocephalus. CALVARIUM: Deformity of the right nasal bone suggestive for a nasal bone fracture. PARANASAL SINUSES: Unremarkable as visualized. No significant inflammatory changes. MASTOID AIR CELLS: Unremarkable as visualized. No inflammatory changes. OTHER FINDINGS: Soft tissue swelling overlying the frontal cranium and right periorbital soft tissues. IMPRESSION: Deformity of the right nasal bone suggestive for a nasal bone fracture. No acute intracranial abnormality. If symptoms persists, consider MRI.
--- NOTE | 2017-11-25 09:20 | CT ---
CT maxillofacial History: Right eye facial contusion. Comparison: None available. Technique: Multiple contiguous axial images were performed through the maxillofacial region without the use of intravenous contrast. Subsequently, sagittal and coronal reformatted images were obtained. This CT exam was performed using one or more of the following dose reduction techniques: Automated exposure control, adjustment of the mA and/or kV according to patient size, and/or use of iterative reconstruction technique. Findings: Prominent soft tissue swelling overlying the right frontal soft tissues as well as the right periorbital region extending inferiorly to the right nasal region. Deformity of the right nasal bone with mild displacement and overlying air suggestive for a nasal bone fracture. Additional minimal lucency through the anterior left nasal bone which may also represent a nondisplaced fracture. Punctate foci of air noted anterior to the right orbital globe. Clinical correlation. Left orbital globe appears grossly preserved. Mild mucosal thickening of the ethmoid air cells. Remainder of the paranasal sinuses appear preserved. Mastoid air cells appear preserved. Nasal septal deviation. Thickening of the nasal turbinates. Impression: Nasal bone fracture as described above. Punctate foci of air noted anterior to the right orbital globe. Clinical correlation. Additional findings as above.
--- NOTE | 2017-11-25 10:14 | RAD ---
PROCEDURE: Bilateral Ankle Radiographs. HISTORY: s/p fall COMPARISON: None FINDINGS: BONES: Right Ankle: Minimally displaced medial malleolar fracture. Small heel spur. Left Ankle: No acute fracture. Small heel spur. JOINTS: Right Ankle: Ankle mortise maintained. Talar dome intact. Left Ankle: Ankle mortise maintained. Talar dome intact. SOFT TISSUES: Right Ankle: Bimalleolar soft tissue swelling. Left Ankle: Bimalleolar soft tissue swelling. OTHER FINDINGS: None. IMPRESSION: Minimally displaced RIGHT medial malleolar fracture.
--- NOTE | 2017-11-25 10:18 | RAD ---
PROCEDURE: Bilateral Feet Radiographs. HISTORY: s/p fall COMPARISON: None. FINDINGS: BONES: Right Foot: Minimally displaced fracture of the medial malleolus. Small heel spur. Left Foot: Comminuted fractures of the base of the 2nd and 3rd metatarsals with extension to the metatarsophalangeal articulations. Small heel spur. JOINTS: Right Foot: Unremarkable. Left Foot: Unremarkable. SOFT TISSUES: Right Foot: Bimalleolar soft tissue swelling. Left Foot: Bimalleolar and forefoot soft tissue swelling. OTHER FINDINGS: None. IMPRESSION: Comminuted intra-articular fractures of the base of the LEFT 2nd and 3rd metatarsals. Lisfranc injury not excluded. Minimally displaced fracture of the RIGHT medial malleolus.
[2017-11-25 11:42] LABS: BASO # 0.1 K/uL (0.0-0.2); BASO % 0.7 % (0.0-2.0); EOS % 0.2 % (0.0-4.0); HEMOGLOBIN 12.7 g/dL (11.0-16.0); LYMPH # 3.3 K/uL (1.0-4.3); LYMPH % 18.6 % (20.0-40.0); MEAN CELL VOLUME 91.8 fL (81.0-99.0); MEAN CORPUSCULAR HEMOGLOBIN 31.6 pg (27.0-31.0); MEAN CORPUSCULAR HGB CONC 34.4 g/dL (33.0-37.0); MEAN PLATELET VOLUME 7.8 fL (7.2-11.7); MONO # 1.4 K/uL (0.0-0.8); MONO % 8.2 % (0.0-10.0); NEUT # 12.7 K/uL (1.8-7.0); NEUT % 72.3 % (50.0-75.0); RBC 4.03 Mil/uL (3.80-5.20); RED CELL DISTRIBUTION WIDTH 13.5 % (11.5-14.5); WHITE BLOOD COUNT 17.5 K/uL (4.8-10.8)
[2017-11-25 12:08] LABS: ALB/GLOB RATIO 1.2 (1.0-2.1); ALBUMIN 4.1 g/dL (3.5-5.0); ALT/SGPT 27 U/L (9-52); AST/SGOT 26 U/L (14-36); BLOOD UREA NITROGEN 9 mg/dL (7-17); CALCIUM 9.9 mg/dl (8.6-10.4); GFR AFRICAN-AMERICAN > 60; GFR NON-AFRICAN AMERICAN > 60
[2017-11-25] MEDS ORDERED: Potassium Chloride 20 mEq ER Tab PO STA (12:09)
[2017-11-25] MEDS ORDERED: Potassium Chloride 20 mEq ER Tab PO ONE (12:20)
--- NOTE | 2017-11-25 12:47 | CT ---
CT bilateral feet History: Fracture. Comparison: X-ray dated 11/25/2017 Technique: Multiple contiguous axial images were performed through the bilateral feet without the use of intravenous contrast. Subsequently, sagittal and coronal reformatted images were obtained. Findings: Study somewhat limited given the large field of view. Right foot: Vertically oriented curvilinear fracture deformity through posterior malleolus of the distal tibia extending from the posterior cortex to the intra-articular surface. Fracture deformity through the medial malleolus of the distal tibia with intra-articular extension. Punctate ossific density seen at the expected location of the anterior tibiofibular ligament/syndesmosis suggestive for a possible avulsion injury. Underlying tear of the anterior tibiofibular ligament cannot be excluded. Additional punctate ossific density seen at the expected location of the anterior talofibular ligament also suggestive for possible avulsion injury and or ligament tear. Left foot: Prominent markedly comminuted fracture deformities demonstrating intra-articular extension noted at the bases of the 2nd 3rd and 4th metatarsal bones with intra-articular extension. Multiple comminuted fracture fragments which are distracted at the base of the 2nd metatarsal bone. At the volar base of the 3rd metatarsal bone, suggestion of a fracture fragment is distracted at the volar aspect with diastases measuring 4 millimeters. Additional comminution of the fracture fragments at the base of the 4th metatarsal bone. Cortical irregularity seen at the distal lateral aspect of the lateral cuneiform bone extending to the articular surface concerning for a fracture. Questionable lucency through the lateral aspect of the middle cuneiform bone, nonspecific. Subtle osseous injury at this level cannot exclued. There appears to be some diastases at the interval of the 2nd metatarsal base and medial cuneiform bone near the expected location of the Lisfranc ligament concerning for possible Lisfranc ligament injury/disruption. Given the adjacent proximity of the Lisfranc ligament as well as some diastases of the bones particularly at the level of the 2nd metatarsal base, underlying Lisfranc ligament injury would be concerning. This may be better delineated with an MRI if clinically indicated. Plantar and dorsal calcaneal spurring. Punctate ossific density seen at the volar base of the 1st metatarsal bone which may represent underlying osseous injury. Cortical irregularity noted along the lateral cortex of the cuboid bone concerning for possible fracture deformity. Mild cortical irregularity with some ossific density seen at medial base of the 1st metatarsal bone concerning for possible small fracture deformity. Impression: Study somewhat limited given the large field of view. Right foot: 1. Vertically oriented curvilinear fracture deformity through posterior malleolus of the distal tibia extending from the posterior cortex to the intra-articular surface. 2. Fracture deformity through the medial malleolus of the distal tibia with intra-articular extension. 3. Punctate ossific density seen at the expected location of the anterior tibiofibular ligament/syndesmosis suggestive for a possible avulsion injury. Underlying tear of the anterior tibiofibular ligament cannot be excluded. 4. Additional punctate ossific density seen at the expected location of the anterior talofibular ligament also suggestive for possible avulsion injury and or ligament tear. Left foot: 1. Prominent markedly comminuted fracture deformities demonstrating intra-articular extension noted at the bases of the 2nd 3rd and 4th metatarsal bones with intra-articular extension. Multiple comminuted fracture fragments which are distracted at the base of the 2nd metatarsal bone. At the volar base of the 3rd metatarsal bone, suggestion of a fracture fragment is distracted at the volar aspect with diastases measuring 4 millimeters. Additional comminution of the fracture fragments at the base of the 4th metatarsal bone. Cortical irregularity seen at the distal lateral aspect of the lateral cuneiform bone extending to the articular surface concerning for a fracture. Questionable lucency through the lateral aspect of the middle cuneiform bone, nonspecific. Subtle osseous injury at this level cannot exclued. There appears to be some diastases at the interval of the 2nd metatarsal base and medial cuneiform bone near the expected location of the Lisfranc ligament concerning for possible Lisfranc ligament injury/disruption. Given the adjacent proximity of the Lisfranc ligament as well as some diastases of the bones particularly at the level of the 2nd metatarsal base, underlying Lisfranc ligament injury would be concerning. This may be better delineated with an MRI if clinically indicated. 2. Punctate ossific density seen at the volar base of the 1st metatarsal bone which may represent underlying osseous injury. 3. Cortical irregularity noted along the lateral cortex of the cuboid bone concerning for possible fracture deformity. 4. Mild cortical irregularity with some ossific density seen at medial base of the 1st metatarsal bone concerning for possible small fracture deformity.
[2017-11-25 13:06] LABS: SQUAMOUS EPITHIAL 1 /hpf (0-5); URINE BACTERIA MANY (<OCC); URINE BILIRUBIN NEGATIVE (NEGATIVE); URINE BLOOD NEGATIVE (NEGATIVE); URINE CLARITY Hazy (Clear); URINE COLOR Amber (YELLOW); URINE GLUCOSE (UA) NORMAL (Normal); URINE LEUKOCYTE ESTERASE 2+ Leu/uL (Negative); URINE PROTEIN NEGATIVE (NEGATIVE)
[2017-11-25 13:19] LABS: BARBITURATES, UR NEGATIVE (NEGATIVE); OPIATES, UR NEGATIVE (NEGATIVE); PHENCYCLIDINE, UR NEGATIVE (NEGATIVE)
[2017-11-25] MEDS ORDERED: cefTRIAXone IV 1 gm in Dextros 1 GM in Dextrose 5% In Water 50 ML IVPB STA (13:24)
[2017-11-25] MEDS ORDERED: cefTRIAXone IV 1 gm in Dextros 50 ML IVPB STA (13:34)
[2017-11-25] MEDS ORDERED: cefTRIAXone IV 1 gm in Dextros 50 ML IVPB ONE ×2 (14:01→22:04)
[2017-11-25 14:14] LABS: BENZODIAZEPINES, UR POSITIVE (NEGATIVE)
--- NOTE | 2017-11-25 15:00 | RAD ---
PROCEDURE: CHEST RADIOGRAPH, 1 VIEW HISTORY: fever cough COMPARISON: 07/08/2017 FINDINGS: LUNGS: Clear. PLEURA: No pneumothorax or pleural fluid seen. CARDIOVASCULAR: Normal. OSSEOUS STRUCTURES: No significant abnormalities. Mild bilateral shoulder arthrosis noted VISUALIZED UPPER ABDOMEN: Normal. OTHER FINDINGS: None. IMPRESSION: No active disease.
[2017-11-25] MEDS ORDERED: Dextrose 50% SYRINGE Inj (50 ml) IV PRN (15:20)
[2017-11-25] MEDS ORDERED: Glucagon Recombinant 1 mg Inj IM PRN (15:20)
--- NOTE | 2017-11-25 16:37 | CP.PCM.CON ---
History of Present Illness - History of Present Illness History of Present Illness: Podiatry Consult note: Dr. Houser 52 year old female patient with PMHx of Anxiety, Back Problems, Bipolar Disorder , Depression, Diabetes, Gastrointestinal Ulcer, Gall Bladder Disease, HTN, Kidney Stones, Chronic Kidney Disease was seen and evaluated at bedside in ED for bilateral LE injuries. Patient was seen at bedside with aunt at bedside. Patient reports that she overdosed on percocets and can not recall of the exact events. Reports that she remember falling multiple times. Reports that this occured yesterday morning. States that she was brought to the ED by her aunt. Patient reports that she hurt her face during the fall as well. Denies of having any excessive amount of pain in the LE. Reports that she only has pain when someone moves her foot and ankle on both the side. Patient denies of any recent F/N/V/C/SOB/CP/headache/diarrhea. No other pedal complains at this time. PMHx: Anxiety, Back Problems, Bipolar Disorder, Depression, Diabetes, Gastrointestinal Ulcer, Gall Bladder Disease, HTN, Kidney Stones, Chronic Kidney Disease PSHx: Appendectomy, Cholecystectomy Allergies: N.K.D.A SHx: Denies smoking or EtOH use, opioid abuse Review of Systems - Constitutional Constitutional: As Per HPI Past Patient History - Past Medical History & Family History Past Medical History?: Yes - Past Social History Smoking Status: Heavy Smoker > 10 Cigarettes Daily - CARDIAC Hx Hypertension: Yes - PULMONARY Hx Tuberculosis: No - NEUROLOGICAL Hx Seizures: No - HEENT Hx HEENT Problems: No - RENAL Hx Chronic Kidney Disease: Yes Hx Kidney Stones: Yes - ENDOCRINE/METABOLIC Hx Endocrine Disorders: Yes Hx Diabetes Mellitus Type 2: Yes - HEMATOLOGICAL/ONCOLOGICAL Hx Human Immunodeficiency Virus (HIV): No - INTEGUMENTARY Hx Dermatological Problems: No - MUSCULOSKELETAL/RHEUMATOLOGICAL Hx Falls: Yes - GASTROINTESTINAL Hx Gall Bladder Disease: Yes - GENITOURINARY/GYNECOLOGICAL Hx Sexually Transmitted Disorders: No - PSYCHIATRIC Hx Anxiety: Yes Hx Bipolar Disorder: Yes Hx Depression: Yes Hx Substance Use: Yes - SURGICAL HISTORY Hx Appendectomy: Yes Hx Cholecystectomy: Yes - ANESTHESIA Hx Anesthesia: Yes Hx Anesthesia Reactions: No Hx Malignant Hyperthermia: No Meds Allergies/Adverse Reactions: Allergies Allergy/AdvReac Type Severity Reaction Status Date / Time No Known Allergies Allergy Verified 07/05/18 07:16 - Medications Medications: Current Medications Acetaminophen (Tylenol 325mg Tab) 650 mg PO Q6 PRN PRN Reason: Pain, moderate (4-7) Citalopram Hydrobromide (Celexa) 20 mg PO DAILY ADELAIDA Dextrose (Dextrose 50% Inj) 0 ml IV STAT PRN; Protocol PRN Reason: Hypoglycemia Protocol Dextrose (Glutose 15) 0 gm PO ONCE PRN; Protocol PRN Reason: Hypoglycemia Protocol Enoxaparin Sodium (Lovenox) 40 mg SC DAILY ADELAIDA Gabapentin (Neurontin) 300 mg PO TID ADELAIDA Glucagon (Glucagen Diagnostic Kit) 0 mg IM STAT PRN; Protocol PRN Reason: Hypoglycemia Protocol Ceftriaxone Sodium 1 gm/ (Sodium Chloride) 100 mls @ 100 mls/hr IVPB DAILY ADELAIDA PRN Reason: Protocol Dextrose (Dextrose 5% In Water 1000 Ml) 1,000 mls @ 0 mls/hr IV .Q0M PRN; Protocol; Per Protocol PRN Reason: Hypoglycemia Protocol Ibuprofen (Motrin Tab) 800 mg PO TID ADELAIDA Insulin Aspart (Novolog) 0 unit SC ACHS ADELAIDA PRN Reason: Protocol [place] Carbonate ([place] Carbonate 300mg) 300 mg PO TID ADELAIDA Metformin HCl (Glucophage) 500 mg PO BID ADELAIDA Potassium Chloride (K-Dur 20 Meq Er Tab) 20 meq PO ONCE ONE Stop: 11/26/17 20:01 Trazodone HCl (Desyrel) 100 mg PO HS PRN PRN Reason: Insomnia Physical Exam - Constitutional Appears: Well, Non-toxic, No Acute Distress - Extremities Exam Additional comments: Bilateral LE exam VASC: DP/PT pulses are palpable 2/4, Cap refill time: < 3 sec to all digits, Temp gradient: warm to cool from proximal to distal, localized moderate edema noted on the dorsum of the left forefoot and medial and lateral ankle on the right DERM: No open lesions, no fracture bullaes, no erythema, no clinical suspicion of active infection NEURO: Protective sensation grossly intact ORTHO: RIGHT - Pain on palpation of the medial and lateral collateral ligament, moderate pain on palpation posterior to the lateral malleolus, tib-fib squeeze test: positive, no pain along the course of the peroneals, no pain on palpation of the base of the 5th metatarsal, no pain on palpatino of the Achilles tendon insertion, pain present on palpation of the distal tip of the medial malleolus, unable to perform MMT due to patient guarding, AROM at the ankle intact with tolerable pain present LEFT - pain present during palpation of the base of the 2nd, 3rd and 4th metatarsal, + piano malloy test, patient is guarding during ROM of the foot, no pain present during ROM at the ankle joint - Neurological Exam Neurological exam: Alert, Oriented x3 - Psychiatric Exam Psychiatric exam: Normal Affect, Normal Mood Results - Vital Signs Recent Vital Signs: Last Vital Signs Temp 99.2 F 11/25/17 16:00 Pulse 93 H 11/25/17 16:00 Resp 20 11/25/17 16:00 BP 111/73 11/25/17 16:00 Pulse Ox 95 11/25/17 16:00 - Labs Result Diagrams: 11/25/17 11:34 11/25/17 11:34 Labs: Laboratory Results - last 24 hr 11/25/17 11/25/17 11/25/17 07:13 11:34 11:34 WBC 17.5 H RBC 4.03 Hgb 12.7 Hct 37.0 MCV 91.8 MCH 31.6 H MCHC 34.4 RDW 13.5 Plt Count 220 MPV 7.8 Neut % (Auto) 72.3 Lymph % (Auto) 18.6 L [place] % (Auto) 8.2 Eos % (Auto) 0.2 Baso % (Auto) 0.7 Neut # (Auto) 12.7 H Lymph # (Auto) 3.3 [place] # (Auto) 1.4 H Eos # (Auto) 0.0 Baso # (Auto) 0.1 Sodium 145 Potassium 3.2 L Chloride 106 Carbon Dioxide 28 Anion Gap 14 BUN 9 Creatinine 0.5 L Est GFR ( Amer) > 60 Est GFR (Non-Af Amer) > 60 POC Glucose (mg/dL) 137 H Random Glucose 123 H Calcium 9.9 Total Bilirubin 1.0 AST 26 ALT 27 Alkaline Phosphatase 56 Total Creatine Kinase 307 H Total Protein 7.5 Albumin 4.1 Globulin 3.4 Albumin/Globulin Ratio 1.2 Urine Color Urine Clarity Urine pH Ur Specific [place] Urine Protein Urine Glucose (UA) Urine Ketones Urine Blood Urine Nitrate Urine Bilirubin Urine Urobilinogen Ur Leukocyte Esterase Urine WBC (Auto) Urine RBC (Auto) Ur Squamous Epith Cells Urine Bacteria Urine Opiates Screen Urine Methadone Screen Acetaminophen Ur Barbiturates Screen Ur Phencyclidine Scrn Ur Amphetamines Screen U Benzodiazepines Scrn U Oth Cocaine Metabols U Cannabinoids Screen 11/25/17 11/25/17 11/25/17 12:46 12:46 13:03 WBC RBC Hgb Hct MCV MCH MCHC RDW Plt Count MPV Neut % (Auto) Lymph % (Auto) [place] % (Auto) Eos % (Auto) Baso % (Auto) Neut # (Auto) Lymph # (Auto) [place] # (Auto) Eos # (Auto) Baso # (Auto) Sodium Potassium Chloride Carbon Dioxide Anion Gap BUN Creatinine Est GFR ( Amer) Est GFR (Non-Af Amer) POC Glucose (mg/dL) Random Glucose Calcium Total Bilirubin AST ALT Alkaline Phosphatase Total Creatine Kinase Total Protein Albumin Globulin Albumin/Globulin Ratio Urine Color [place] Urine Clarity Hazy Urine pH 7.0 Ur Specific [place] 1.019 Urine Protein Negative Urine Glucose (UA) Normal Urine Ketones Negative Urine Blood Negative Urine Nitrate Negative Urine Bilirubin Negative Urine Urobilinogen 2.0 H Ur Leukocyte Esterase 2+ H Urine WBC (Auto) 43 H Urine RBC (Auto) 4 H Ur Squamous Epith Cells 1 Urine Bacteria Many H Urine Opiates Screen Negative Urine Methadone Screen Negative Acetaminophen < 10.0 L Ur Barbiturates Screen Negative Ur Phencyclidine Scrn Negative Ur Amphetamines Screen Negative U Benzodiazepines Scrn Positive U Oth Cocaine Metabols Negative U Cannabinoids Screen Negative Assessment & Plan - Assessment and Plan (Free Text) Assessment: 52 year old female patient with extensive PMHx was evaluated for 1) left metatarsal 2-4 fractures with possible Lisfranc's ligament injury 2). Right Posterior malleolus fracture 3) Right medial malleolus fracture 4) possible ankle ligamentous injury Plan: Patient seen and evaluated Discussed patient in details with attending Dr. Houser X-rays of the bilateral foot and ankle ordered/reviewed CT scan of the bilateral LE ordered after evaluating the x-rays Bilateral LE AO posterior splints applied Educated to keep bilateral LE elevated Podiatry plans right ankle ORIF and left foot Lisfranc's repair - plan for the Right ankle ORIF this Wednesday (11/29); Will plan Left foot Lisfranc's repair s/p right ankle ORIF Patient will require medical clearance Will keep posterior splints intact and remain NWB to bilateral LE Podiatry will follow patient while in-house Thank you for the podiatry consult and allowing to take part in patient care - Date & Time Date: 11/25/17 Time: 16:55
[2017-11-25] MEDS: (Novolog) Insulin Aspart, Recombinant 100 u/ml 10 ml vial SC SCH ×2 (17:30→21:22)
[2017-11-26 07:01] LABS: BASO # 0.2 K/uL (0.0-0.2); BASO % 0.8 % (0.0-2.0); EOS # 0.3 K/uL (0.0-0.7); EOS % 1.4 % (0.0-4.0); HEMOGLOBIN 13.3 g/dL (11.0-16.0); LYMPH # 3.8 K/uL (1.0-4.3); LYMPH % 18.9 % (20.0-40.0); MEAN CELL VOLUME 93.4 fL (81.0-99.0); MEAN CORPUSCULAR HEMOGLOBIN 32.2 pg (27.0-31.0); MEAN CORPUSCULAR HGB CONC 34.5 g/dL (33.0-37.0); MEAN PLATELET VOLUME 8.6 fL (7.2-11.7); MONO # 1.3 K/uL (0.0-0.8); MONO % 6.6 % (0.0-10.0); NEUT # 14.5 K/uL (1.8-7.0); NEUT % 72.3 % (50.0-75.0); RBC 4.14 Mil/uL (3.80-5.20); RED CELL DISTRIBUTION WIDTH 13.7 % (11.5-14.5)
[2017-11-26 07:19] LABS: BLOOD UREA NITROGEN 9 mg/dL (7-17); CALCIUM 9.7 mg/dl (8.6-10.4); GFR AFRICAN-AMERICAN > 60; GFR NON-AFRICAN AMERICAN > 60
[2017-11-26] MEDS: (Novolog) Insulin Aspart, Recombinant 100 u/ml 10 ml vial SC SCH ×4 (07:44→21:36)
[2017-11-26] MEDS: cefTRIAXone IV 1 gm in Dextros 50 ML IVPB SCH (09:10)
[2017-11-26] MEDS: Enoxaparin 40 mg Syringe SC SCH (09:10)
[2017-11-26] MEDS: Vancomycin 1 gm/NS 200 ml 1 GM/200 ML BAG IVPB SCH ×2 (11:02→21:38)
--- NOTE | 2017-11-26 12:32 | PCM.PSYCH ---
Initial Psychiatric Evaluation - Initial Psychiatric Evaluation Type of Admission: Voluntary Legal Status: Capacity Chief Complaint (in patient's own words): "I went manic" History of Present Illness and Precipitating Events: Patient is a 52 year old female who presents to the ED with her aunt complaining of multiple falls. The patient was seen at bedside and her aunt was not present. The patient reports that she fell multiple times but does not recall how. She reports that she overdosed on Percocets prior to the fall. She does not remember how she fell or how she got a bruise on her right eye. The patient's history of the incident is conflicting. She also reports that she had a "manic episode" that caused her to sustain the injuries to her eye and bilateral ankles however she did not explain what happened in detail. The patient denies any suicidal or homicidal ideation. She denies audio or visual hallucinations. The patient was previously admitted to the Psych unit here in October for cocaine abuse and depression. She has abused cocaine since she was 19 years old and currently uses 2-3 bags a week by sniffing it. A maxillofacial CT shows fracture of the nasal bone. Foot and ankle xray showed fracture in both right and left ankles. Current Medications: Active Medications Generic Name Dose Route Start Last Admin Trade Name Freq PRN Reason Stop Dose Admin Acetaminophen 650 mg 11/25/17 15:19 Tylenol 325mg Tab PO Q6 PRN Pain, moderate (4-7) Citalopram Hydrobromide 20 mg 11/26/17 10:00 11/26/17 09:10 Celexa PO 20 mg DAILY ADELAIDA Administration Dextrose 0 ml 11/25/17 15:20 Dextrose 50% Inj IV STAT PRN Hypoglycemia Protocol Protocol Dextrose 0 gm 11/25/17 15:20 Glutose 15 PO ONCE PRN Hypoglycemia Protocol Protocol Enoxaparin Sodium 40 mg 11/26/17 10:00 11/26/17 09:10 Lovenox SC 40 mg DAILY ADELAIDA Administration Gabapentin 300 mg 11/25/17 18:00 11/26/17 09:10 Neurontin PO 300 mg TID ADELAIDA Administration Glucagon 0 mg 11/25/17 15:20 Glucagen Diagnostic Kit IM STAT PRN Hypoglycemia Protocol Protocol Dextrose 1,000 mls @ 0 mls/hr 11/25/17 15:20 Dextrose 5% In Water 1000 Ml IV .Q0M PRN Hypoglycemia Protocol Protocol Per Protocol Ceftriaxone Sodium 50 mls @ 100 mls/hr 11/26/17 10:00 11/26/17 09:10 Rocephin Iv 1 Gm Duplex IVPB 100 mls/hr DAILY ADELAIDA Administration Protocol Vancomycin/Sodium Chloride 1 gm in 200 mls @ 133.333 mls/hr 11/26/17 10:00 11:02 Vancomycin 1 Gm/Ns 200 Ml IVPB 133.333 mls/hr Q12H ADELAIDA Administration Protocol Ibuprofen 800 mg 11/25/17 19:35 11/26/17 00:38 Motrin Tab PO 800 mg Q8 PRN Administration Fever >100.4 F Insulin Aspart 0 unit 11/25/17 16:30 11/26/17 11:40 Novolog SC Not Given ACHS ADELAIDA Protocol [place] Carbonate 300 mg 11/25/17 18:00 11/26/17 09:10 [place] Carbonate 300mg PO 300 mg TID ADELAIDA Administration Nicotine 1 patch 11/25/17 21:00 11/26/17 09:12 Nicoderm Cq TD 1 patch DAILY ADELAIDA Administration Potassium Chloride 20 meq 11/26/17 20:00 K-Dur 20 Meq Er Tab PO 11/26/17 20:01 ONCE ONE Tramadol HCl 50 mg 11/26/17 11:38 Ultram PO TID PRN Pain, severe (8-10) Trazodone HCl 100 mg 11/25/17 16:21 11/25/17 21:39 Desyrel PO 100 mg HS PRN Administration Insomnia Past Psychiatric History - Past Psychiatric History Previous Treatment History: Inpatient [facility] hospital: [facility] Date: 11/12/17 History of Abuse: Cocaine abuse since the age of 19 Pertinent Medical Hx (Current Medical&Sleep Prob, Allergies): Allergies Allergy/AdvReac Type Severity Reaction Status Date / Time No Known Allergies Allergy Verified 11/25/17 19:37 metFORMIN [glucOPHAGE] 500 mg PO BID #0 05/18/16 Gabapentin 300 mg PO TID 01/28/17 Citalopram [celEXA] 20 mg PO DAILY #30 tab 11/17/17 [place] Carbonate [[place] Carbonate 300MG] 300 mg PO TID #90 cap 11/17/17 traZODone [Desyrel] 100 mg PO HS PRN #60 tab 11/17/17 Baclofen [Lioresal] 10 mg PO DAILY 11/25/17 Citalopram [celeXA] 20 mg PO DAILY 11/25/17 Ibuprofen [Motrin Tab] 800 mg PO Q6H 11/25/17 Loperamide HCl [Anti-Diarrheal] 2 mg PO PRN PRN 11/25/17 Naproxen 500 mg PO BID 11/25/17 Review of Systems - Review of Systems All systems: reviewed and no additional remarkable complaints except - Psychiatric Psychiatric: Anxiety, Irritability Mental Status Examination - Personal Presentation Personal Presentation: Looks stated age - Affect Affect: Constricted - Motor Activity Motor Activity: Calm - Reliability in Providing Information Reliability in Providing Information: Fair Additional comments: Patient's story is conflicting and she has no explanation for how she sustained her falls. - Speech Speech: Organized - Mood Mood: Anxious - Formal Thought Process Formal Thought Process: No Impairment - Obsessions/Compulsions Obsessions: No Compulsions: No - Cognitive Functions Orientation: Person, Place, Situation, Time Sensorium: Alert Attention/Concentration: Attentive Abstract Thinking: [place] Estimate of Intelligence: Below average Judgement: Imparied, as evidence by: Poor judgement, Intact, as evidence by: Good judgement - Risk Risk: Diminished functioning - Limitations Limitations: Living alone DSM 5 DX - DSM 5 DSM 5 Diagnosis: Depression Substance Abuse-Cocaine
[2017-11-26 14:42] LABS: BARBITURATES, UR NEGATIVE (NEGATIVE); BENZODIAZEPINES, UR NEGATIVE (NEGATIVE); OPIATES, UR NEGATIVE (NEGATIVE); PHENCYCLIDINE, UR NEGATIVE (NEGATIVE)
--- NOTE | 2017-11-26 15:48 | CP.PCM.PN ---
Subjective - Date & Time of Evaluation Date of Evaluation: 11/26/17 Time of Evaluation: 15:45 - Subjective Subjective: Podiatry Progress note: Dr. Houser 52 year old female patient was seen and evaluated for multi-trauma to bilateral LE. Patient is AAOx3 and appears to be resting comfortably in her bed. Denies of any acute overnight events. Denies of having any pain in her extremities today. Denies recent F/N/V/C/SOB/CP/headache. Denies any other pedal complains at this time. Objective - Vital Signs/Intake and Output Vital Signs (last 24 hours): Temp Pulse Resp BP Pulse Ox 98.4 F 82 20 112/65 97 11/26/17 07:00 11/26/17 07:00 11/26/17 07:00 11/26/17 07:00 11/26/17 07:00 Intake and Output: 11/26/17 11/26/17 06:59 18:59 Intake Total 200 Output Total 5 Balance 195 - Medications Medications: Current Medications Acetaminophen (Tylenol 325mg Tab) 650 mg PO Q6 PRN PRN Reason: Pain, moderate (4-7) Citalopram Hydrobromide (Celexa) 20 mg PO DAILY [facility] Last Admin: 11/26/17 09:10 Dose: 20 mg Dextrose (Dextrose 50% Inj) 0 ml IV STAT PRN; Protocol PRN Reason: Hypoglycemia Protocol Dextrose (Glutose 15) 0 gm PO ONCE PRN; Protocol PRN Reason: Hypoglycemia Protocol Enoxaparin Sodium (Lovenox) 40 mg SC DAILY [facility] Last Admin: 11/26/17 09:10 Dose: 40 mg Gabapentin (Neurontin) 300 mg PO TID ADELAIDA Last Admin: 11/26/17 14:30 Dose: 300 mg Glucagon (Glucagen Diagnostic Kit) 0 mg IM STAT PRN; Protocol PRN Reason: Hypoglycemia Protocol Dextrose (Dextrose 5% In Water 1000 Ml) 1,000 mls @ 0 mls/hr IV .Q0M PRN; Protocol; Per Protocol PRN Reason: Hypoglycemia Protocol Ceftriaxone Sodium (Rocephin Iv 1 Gm Duplex) 50 mls @ 100 mls/hr IVPB DAILY [facility] PRN Reason: Protocol Last Admin: 11/26/17 09:10 Dose: 100 mls/hr Vancomycin/Sodium Chloride (Vancomycin 1 Gm/Ns 200 Ml) 1 gm in 200 mls @ 133.333 mls/hr IVPB Q12H ADELAIDA PRN Reason: Protocol Last Admin: 11/26/17 11:02 Dose: 133.333 mls/hr Ibuprofen (Motrin Tab) 800 mg PO Q8 PRN PRN Reason: Fever >100.4 F Last Admin: 11/26/17 00:38 Dose: 800 mg Insulin Aspart (Novolog) 0 unit SC ACHS ADELAIDA PRN Reason: Protocol Last Admin: 11/26/17 11:40 Dose: Not Given [place] Carbonate ([place] Carbonate 300mg) 300 mg PO TID ADELAIDA Last Admin: 11/26/17 14:30 Dose: 300 mg Nicotine (Nicoderm Cq) 1 patch TD DAILY ADELAIDA Last Admin: 11/26/17 09:12 Dose: 1 patch Potassium Chloride (K-Dur 20 Meq Er Tab) 20 meq PO ONCE ONE Stop: 11/26/17 20:01 Tramadol HCl (Ultram) 50 mg PO TID PRN PRN Reason: Pain, severe (8-10) Trazodone HCl (Desyrel) 100 mg PO HS PRN PRN Reason: Insomnia Last Admin: 11/25/17 21:39 Dose: 100 mg - Labs Labs: 11/26/17 06:52 11/26/17 06:52 - Constitutional Appears: Well, Non-toxic, No Acute Distress - Extremities Exam Additional comments: AO posterior splint to bilateral LE is clean, dry and intact Cap refill time: < 3 sec and active ROM at the MTPJ is intact - Neurological Exam Neurological Exam: Alert, Awake, Oriented x3 - Psychiatric Exam Psychiatric exam: Normal Affect, Normal Mood Assessment and Plan - Assessment and Plan (Free Text) Assessment: 52 year old female patient with extensive PMHx was evaluated for 1) left metatarsal 2-4 fractures with possible Lisfranc's ligament injury 2). Right Posterior malleolus fracture 3) Right medial malleolus fracture 4) possible ankle ligamentous injury Plan: Patient seen and evaluated Discussed patient in details with attending Dr. Houser X-rays of the bilateral foot and ankle ordered/reviewed CT scan of the bilateral LE ordered/reviewed after evaluating the x-rays - Imaging confirms the diagnosis Bilateral LE AO posterior splints present - Leave intact Educated to keep bilateral LE elevated Podiatry plans right ankle ORIF and left foot Lisfranc's repair - plan for the Right ankle ORIF this Wednesday (11/29); Will plan Left foot Lisfranc's repair s/p right ankle ORIF Patient will require medical optimization Patient will require cardiac optimization Patient will require psych optimization Will keep posterior splints intact and remain NWB to bilateral LE Podiatry will continue to monitor patient
[2017-11-26] MEDS ORDERED: Iodixanol 320 MG/ML 100 ML BOTTLE IV ONE (18:18)
--- NOTE | 2017-11-26 18:51 | CT ---
PROCEDURE: CT Chest with contrast (Pulmonary Angiogram) HISTORY: Elevated D Dimer COMPARISON: None available. TECHNIQUE: Axial computed tomography images were obtained of the chest in the pulmonary arterial phase of enhancement. Coronal and sagittal reformatted images were created and reviewed. Intravenous contrast dose: 100 cc Visipaque 320 Mean Hounsfield unit values in the main pulmonary artery: 200.39 Radiation dose: Total exam DLP = 405.15 mGy-cm. This CT exam was performed using one or more of the following dose reduction techniques: Automated exposure control, adjustment of the mA and/or kV according to patient size, and/or use of iterative reconstruction technique. FINDINGS: PULMONARY ARTERIES: No large or central pulmonary emboli. Assessment beyond the segmental branches is limited based on opacification of segment segmental branches. AORTA: No acute findings. No thoracic aortic aneurysm. LUNGS: Unremarkable. No nodule, mass or pulmonary consolidation. PLEURAL SPACES: Unremarkable. No effusion or pneuomothorax. HEART: Unremarkable. No cardiomegaly. No significant pericardial effusion. LYMPH NODES: No lymphadenopathy. BONES, CHEST WALL: Unremarkable. No fracture or destructive lesion OTHER FINDINGS: Unremarkable. IMPRESSION: Unremarkable CT pulmonary angiogram. No pulmonary embolus. Limitations of the current examination: Suboptimal assessment beyond segmental branches precluded by poor opacification/bolus imaging.
[2017-11-26] MEDS ORDERED: DiphenhydrAMINE 12.5 mg/5 ml LIQ UD (5 ml) PO STA (19:59)
[2017-11-26] MEDS ORDERED: Potassium Chloride 20 mEq ER Tab PO ONE (20:00)
--- NOTE | 2017-11-26 22:18 | CARD ---
APPROVED REPORT EXAM: Two-dimensional and M-mode echocardiogram with Doppler and color Doppler. Other Information Quality : TDSRhythm : INDICATION Pre-Op 2D DIMENSIONS IVSd1.1 (0.7-1.1cm)LVDd3.9 (3.9-5.9cm) PWd1.1 (0.7-1.1cm)LVDs2.5 (2.5-4.0cm) FS (%) 36.2 %LVEF (%)66.5 (>50%) M-Mode DIMENSIONS Left Atrium (MM)2.94 (2.5-4.0cm)IVSd1.03 (0.7-1.1cm) Aortic Root3.17 (2.2-3.7cm)LVDd4.32 (4.0-5.6cm) Aortic Cusp Exc.2.28 (1.5-2.0cm)PWd0.88 (0.7-1.1cm) FS (%) 34 %LVDs2.84 (2.0-3.8cm) LVEF (%)64 (>50%) Mitral Valve MV E Xcuuryic92.0cm/sMV A Axrvnoon52.0cm/sE/A ratio0.8 TDI E/Lateral E'0.0E/Medial E'0.0 LEFT VENTRICLE The left ventricle is normal size. There is normal left ventricular wall thickness. The left ventricular function is normal. The left ventricular ejection fraction is within the normal range. No regional wall motion abnormalities noted. The left ventricular diastolic function is normal for age. Normal left atrial pressure. RIGHT VENTRICLE The right ventricle is normal size. There is normal right ventricular wall thickness. The right ventricular systolic function is normal. ATRIA The left atrium size is normal. The right atrium size is normal. The interatrial septum is intact with no evidence for an atrial septal defect. AORTIC VALVE The aortic valve is normal in structure and function. No aortic regurgitation is present. There is no aortic valvular stenosis. MITRAL VALVE The mitral valve is normal in structure and function. There is no mitral valve stenosis. There is no mitral valve regurgitation noted. TRICUSPID VALVE The tricuspid valve is normal in structure and function. There is no tricuspid valve regurgitation noted. PULMONIC VALVE The pulmonary valve is normal in structure and function. There is no pulmonic valvular regurgitation. GREAT VESSELS The aortic root is normal in size. The IVC is normal in size and collapses >50% with inspiration. PERICARDIAL EFFUSION There is no pericardial effusion. <Conclusion> Normal bi-ventricular function. No valvular abnormality. No pericardial effusion.
--- NOTE | 2017-11-26 22:23 | CP.PCM.PN ---
Objective - Vital Signs/Intake and Output Vital Signs (last 24 hours): Temp Pulse Resp BP Pulse Ox 99.4 F 100 H 20 118/73 99 11/26/17 15:00 11/26/17 15:00 11/26/17 15:00 11/26/17 15:00 11/26/17 15:00 - Medications Medications: Current Medications Acetaminophen (Tylenol 325mg Tab) 650 mg PO Q6 PRN PRN Reason: Pain, moderate (4-7) Citalopram Hydrobromide (Celexa) 20 mg PO DAILY [facility] Last Admin: 11/26/17 09:10 Dose: 20 mg Dextrose (Dextrose 50% Inj) 0 ml IV STAT PRN; Protocol PRN Reason: Hypoglycemia Protocol Dextrose (Glutose 15) 0 gm PO ONCE PRN; Protocol PRN Reason: Hypoglycemia Protocol Diphenhydramine HCl (Benadryl) 50 mg PO HS PRN PRN Reason: Insomnia Last Admin: 11/26/17 21:38 Dose: 50 mg Enoxaparin Sodium (Lovenox) 40 mg SC DAILY [facility] Last Admin: 11/26/17 09:10 Dose: 40 mg Gabapentin (Neurontin) 300 mg PO TID [facility] Last Admin: 11/26/17 17:50 Dose: 300 mg Glucagon (Glucagen Diagnostic Kit) 0 mg IM STAT PRN; Protocol PRN Reason: Hypoglycemia Protocol Dextrose (Dextrose 5% In Water 1000 Ml) 1,000 mls @ 0 mls/hr IV .Q0M PRN; Protocol; Per Protocol PRN Reason: Hypoglycemia Protocol Ceftriaxone Sodium (Rocephin Iv 1 Gm Duplex) 50 mls @ 100 mls/hr IVPB DAILY [facility] PRN Reason: Protocol Last Admin: 11/26/17 09:10 Dose: 100 mls/hr Vancomycin/Sodium Chloride (Vancomycin 1 Gm/Ns 200 Ml) 1 gm in 200 mls @ 133.333 mls/hr IVPB Q12H [facility] PRN Reason: Protocol Last Admin: 11/26/17 21:38 Dose: 133.333 mls/hr Ibuprofen (Motrin Tab) 800 mg PO Q8 PRN PRN Reason: Fever >100.4 F Last Admin: 11/26/17 00:38 Dose: 800 mg Insulin Aspart (Novolog) 0 unit SC ACHS [facility] PRN Reason: Protocol Last Admin: 11/26/17 21:36 Dose: Not Given [place] Carbonate ([place] Carbonate 300mg) 300 mg PO TID [facility] Last Admin: 11/26/17 17:50 Dose: 300 mg Nicotine (Nicoderm Cq) 1 patch TD DAILY [facility] Last Admin: 11/26/17 09:12 Dose: 1 patch Tramadol HCl (Ultram) 50 mg PO TID PRN PRN Reason: Pain, severe (8-10) Trazodone HCl (Desyrel) 100 mg PO HS PRN PRN Reason: Insomnia Last Admin: 11/25/17 21:39 Dose: 100 mg - Labs Labs: 11/26/17 06:52 11/26/17 06:52
--- NOTE | 2017-11-27 03:55 | PN ---
DATE: 11/26/2017 SUBJECTIVE: The patient is having poor sleep. The patient has bilateral foot pain. Her feet has been wrapped and the patient has been seen by Podiatry. Urine culture was positive. Gram negative rods. PHYSICAL EXAMINATION: VITAL SIGNS: Blood pressure 110/73, pulse 100, respiratory rate 20, and temperature 99.4. LUNGS: Clear. CVS: S1, S2 regular. Bilateral foot dressing with swelling. ASSESSMENT: 1. Foot fractures. 2. Rule out underlying cellulitis. 3. Anxiety and depression and history of benzodiazepine abuse. 4. Dehydration. PLAN: Continue medications. Monitor the patient. Eduard Peterson MD
--- NOTE | 2017-11-27 06:31 | CP.PCM.PN ---
Subjective - Date & Time of Evaluation Date of Evaluation: 11/27/17 Time of Evaluation: 06:28 - Subjective Subjective: Podiatry Progress note for attending Dr. Houser 52 year old female patient was seen and evaluated at the bedside for multi- trauma to bilateral LE. Patient is not in acute distress. Patient is AAOx3 and appears to be resting comfortably in her bed. Patient states that she is having pain 8/10 in both lower extremities for which she is receiving ultram but it doesn't help her a lot. Patient states that yesterday her temperature was fluctuating and had some episodes of fever. Patient denies of any other acute overnight events. Denies recent N/V/C/SOB/CP/headache. Denies any other pedal complains at this time. Objective - Vital Signs/Intake and Output Vital Signs (last 24 hours): Temp Pulse Resp BP Pulse Ox 98.2 F 89 20 120/76 96 11/27/17 04:48 11/26/17 23:15 11/26/17 23:15 11/26/17 23:15 11/26/17 23:15 Intake and Output: 11/26/17 11/27/17 18:59 06:59 Output Total 700 Balance -700 - Medications Medications: Current Medications Acetaminophen (Tylenol 325mg Tab) 650 mg PO Q6 PRN PRN Reason: Pain, moderate (4-7) Citalopram Hydrobromide (Celexa) 20 mg PO DAILY [facility] Last Admin: 11/26/17 09:10 Dose: 20 mg Dextrose (Dextrose 50% Inj) 0 ml IV STAT PRN; Protocol PRN Reason: Hypoglycemia Protocol Dextrose (Glutose 15) 0 gm PO ONCE PRN; Protocol PRN Reason: Hypoglycemia Protocol Diphenhydramine HCl (Benadryl) 50 mg PO HS PRN PRN Reason: Insomnia Last Admin: 11/26/17 21:38 Dose: 50 mg Enoxaparin Sodium (Lovenox) 40 mg SC DAILY [facility] Last Admin: 11/26/17 09:10 Dose: 40 mg Gabapentin (Neurontin) 300 mg PO TID [facility] Last Admin: 11/26/17 17:50 Dose: 300 mg Glucagon (Glucagen Diagnostic Kit) 0 mg IM STAT PRN; Protocol PRN Reason: Hypoglycemia Protocol Dextrose (Dextrose 5% In Water 1000 Ml) 1,000 mls @ 0 mls/hr IV .Q0M PRN; Protocol; Per Protocol PRN Reason: Hypoglycemia Protocol Ceftriaxone Sodium (Rocephin Iv 1 Gm Duplex) 50 mls @ 100 mls/hr IVPB DAILY [facility] PRN Reason: Protocol Last Admin: 11/26/17 09:10 Dose: 100 mls/hr Vancomycin/Sodium Chloride (Vancomycin 1 Gm/Ns 200 Ml) 1 gm in 200 mls @ 133.333 mls/hr IVPB Q12H [facility] PRN Reason: Protocol Last Admin: 11/26/17 21:38 Dose: 133.333 mls/hr Ibuprofen (Motrin Tab) 800 mg PO Q8 PRN PRN Reason: Fever >100.4 F Last Admin: 11/26/17 00:38 Dose: 800 mg Insulin Aspart (Novolog) 0 unit SC ACHS [facility] PRN Reason: Protocol Last Admin: 11/26/17 21:36 Dose: Not Given [place] Carbonate ([place] Carbonate 300mg) 300 mg PO TID [facility] Last Admin: 11/26/17 17:50 Dose: 300 mg Nicotine (Nicoderm Cq) 1 patch TD DAILY [facility] Last Admin: 11/26/17 09:12 Dose: 1 patch Tramadol HCl (Ultram) 50 mg PO TID PRN PRN Reason: Pain, severe (8-10) Last Admin: 11/27/17 04:31 Dose: 50 mg Trazodone HCl (Desyrel) 100 mg PO HS PRN PRN Reason: Insomnia Last Admin: 11/25/17 21:39 Dose: 100 mg - Labs Labs: 11/26/17 06:52 11/26/17 06:52 - Constitutional Appears: Non-toxic, No Acute Distress - Extremities Exam Additional comments: Lower extremities exam: Vasc: cap. refill < 3 sec in all digits Neuro: gross sensation intact. Rest of the exam couldn't be done as she has b/l posterior splints which was left intact. - Neurological Exam Neurological Exam: Alert, Awake, Oriented x3 Assessment and Plan - Assessment and Plan (Free Text) Assessment: 52 year old female patient was evaluated for 1) left metatarsal 2-4 fractures with possible Lisfranc's ligament injury 2). Right Posterior malleolus fracture 3) Right medial malleolus fracture 4) possible ankle ligamentous injury Plan: Patient seen and evaluated at the bed side Discussed plan in details with attending Dr. Houser X-rays of the bilateral foot and ankle reviewed. CT scan of the bilateral LE reviewed. Imaging showed: 1) left metatarsal 2-4 fractures with possible Lisfranc's ligament injury 2). Right Posterior malleolus fracture 3) Right medial malleolus fracture 4) possible ankle ligamentous injury Bilateral LE AO posterior splints still present and Left intact patient to continue elevating her LE bilaterally. Explained to the patient that we are waiting cardiac, medical and osychiatric clearance to take her to the OR Wednesday 11/29 for ORIF of the right ankle. To F/U cardiac, medical and Psych. clearance before the surgery. All patient questions and concerns answered to her satisfaction. To continue follow up in house by the podiatry team.
[2017-11-27] MEDS: (Novolog) Insulin Aspart, Recombinant 100 u/ml 10 ml vial SC SCH ×4 (07:18→21:40)
[2017-11-27] MEDS: Enoxaparin 40 mg Syringe SC SCH (10:04)
[2017-11-27] MEDS: cefTRIAXone IV 1 gm in Dextros 50 ML IVPB SCH (10:05)
[2017-11-27] MEDS: Vancomycin 1 gm/NS 200 ml 1 GM/200 ML BAG IVPB SCH ×2 (10:49→21:09)
[2017-11-27] MEDS: Piperacill/Tazo 3.375gm in Dex 3.375 GM/50 ML BAG IVPB SCH (17:44)
--- NOTE | 2017-11-27 23:24 | PN ---
DATE: 11/27/2017 SUBJECTIVE: The patient denies any dizziness. No reported ventricular arrhythmia. The patient denies any chest pain. PHYSICAL EXAMINATION: VITAL SIGNS: Blood pressure 106/67, heart rate 78, temperature 98.1, respirations 20. HEENT: Right periorbital ecchymosis. NECK: No JVD. CHEST: Clear. HEART: S1, S2, regular. EXTREMITIES: Dressings applied to both legs. Venous Doppler of lower extremity was performed, the report is still pending. Chest CT angio was performed yesterday because D-dimer was elevated and the findings are unremarkable. Chest CT angio, no pulmonary embolus. ASSESSMENT: 1. Recurrent falls with bimalleolar fracture of the right foot and fracture of the left foot. 2. Bipolar disorder. RECOMMENDATIONS: I did review the EKG report which was performed yesterday which revealed sinus rhythm at rate of 99 with left atrial enlargement. The echo study revealed normal biventricular function without abnormality. The patient can be maintained on her current medications including Lasix 100 mg twice a day, subcutaneous Lovenox at 40 mg once a day, IV Rocephin 1 gm daily, and IV vancomycin 1 gm every 12 hours. I will follow the venous Doppler of lower extremity and clear the patient from the cardiac point for her orthopedic surgery. Cruz Burch MD
--- NOTE | 2017-11-27 23:29 | CP.PCM.PN ---
Objective - Vital Signs/Intake and Output Vital Signs (last 24 hours): Temp Pulse Resp BP Pulse Ox 98.1 F 78 20 106/67 97 11/27/17 15:49 11/27/17 15:49 11/27/17 15:49 11/27/17 15:49 11/27/17 15:49 Intake and Output: 11/27/17 11/28/17 18:59 06:59 Output Total 600 Balance -600 - Medications Medications: Current Medications Acetaminophen (Tylenol 325mg Tab) 650 mg PO Q6 PRN PRN Reason: Pain, moderate (4-7) Citalopram Hydrobromide (Celexa) 20 mg PO DAILY [facility] Last Admin: 11/27/17 10:04 Dose: 20 mg Dextrose (Dextrose 50% Inj) 0 ml IV STAT PRN; Protocol PRN Reason: Hypoglycemia Protocol Dextrose (Glutose 15) 0 gm PO ONCE PRN; Protocol PRN Reason: Hypoglycemia Protocol Diphenhydramine HCl (Benadryl) 50 mg PO HS PRN PRN Reason: Insomnia Last Admin: 11/27/17 21:08 Dose: 50 mg Enoxaparin Sodium (Lovenox) 40 mg SC DAILY [facility] Last Admin: 11/27/17 10:04 Dose: 40 mg Gabapentin (Neurontin) 300 mg PO TID [facility] Last Admin: 11/27/17 17:40 Dose: 300 mg Glucagon (Glucagen Diagnostic Kit) 0 mg IM STAT PRN; Protocol PRN Reason: Hypoglycemia Protocol Dextrose (Dextrose 5% In Water 1000 Ml) 1,000 mls @ 0 mls/hr IV .Q0M PRN; Protocol; Per Protocol PRN Reason: Hypoglycemia Protocol Ceftriaxone Sodium (Rocephin Iv 1 Gm Duplex) 50 mls @ 100 mls/hr IVPB DAILY [facility] PRN Reason: Protocol Last Admin: 11/27/17 10:05 Dose: 100 mls/hr Vancomycin/Sodium Chloride (Vancomycin 1 Gm/Ns 200 Ml) 1 gm in 200 mls @ 133.333 mls/hr IVPB Q12H [facility] PRN Reason: Protocol Last Admin: 11/27/17 21:09 Dose: 133.333 mls/hr Piperacillin Sod/Tazobactam Sod (Zosyn 3.375 Gm Iv Premix) 3.375 gm in 50 mls @ 100 mls/hr IVPB Q6H [facility] PRN Reason: Protocol Last Admin: 11/27/17 17:44 Dose: 100 mls/hr Ibuprofen (Motrin Tab) 800 mg PO Q8 PRN PRN Reason: Fever >100.4 F Last Admin: 11/26/17 00:38 Dose: 800 mg Insulin Aspart (Novolog) 0 unit SC ACHS [facility] PRN Reason: Protocol Last Admin: 11/27/17 21:40 Dose: Not Given [place] Carbonate ([place] Carbonate 300mg) 300 mg PO TID [facility] Last Admin: 11/27/17 17:40 Dose: 300 mg Nicotine (Nicoderm Cq) 1 patch TD DAILY [facility] Last Admin: 11/27/17 10:06 Dose: 1 patch Tramadol HCl (Ultram) 50 mg PO TID PRN PRN Reason: Pain, severe (8-10) Last Admin: 11/27/17 21:08 Dose: 50 mg - Labs Labs: 11/26/17 06:52 11/26/17 06:52
[2017-11-28] MEDS: Piperacill/Tazo 3.375gm in Dex 3.375 GM/50 ML BAG IVPB SCH ×5 (00:22→21:30)
--- NOTE | 2017-11-28 07:54 | CP.PCM.PN ---
Subjective - Date & Time of Evaluation Date of Evaluation: 11/28/17 Time of Evaluation: 07:52 - Subjective Subjective: Podiatry Progress note for attending Dr. Houser 52 year old female patient was seen and evaluated this morning at the bedside for multi-trauma to bilateral LE. Patient is not in acute distress. Patient is AAOx3 and resting comfortably in her bed. Patient states that her lower extremity pain is well controlled now by medications. . Patient denies of any other acute overnight events. Patient denies any overnight acute events. She denies any N/V/C/SOB/CP/headache. Patient denies any other pedal complains at this time. Objective - Vital Signs/Intake and Output Vital Signs (last 24 hours): Temp Pulse Resp BP Pulse Ox 98 F 70 20 112/70 97 11/28/17 04:44 11/28/17 04:44 11/28/17 04:44 11/28/17 04:44 11/28/17 04:44 Intake and Output: 11/28/17 11/28/17 06:59 18:59 Output Total 1100 Balance -1100 - Medications Medications: Current Medications Acetaminophen (Tylenol 325mg Tab) 650 mg PO Q6 PRN PRN Reason: Pain, moderate (4-7) Citalopram Hydrobromide (Celexa) 20 mg PO DAILY [facility] Last Admin: 11/27/17 10:04 Dose: 20 mg Dextrose (Dextrose 50% Inj) 0 ml IV STAT PRN; Protocol PRN Reason: Hypoglycemia Protocol Dextrose (Glutose 15) 0 gm PO ONCE PRN; Protocol PRN Reason: Hypoglycemia Protocol Diphenhydramine HCl (Benadryl) 50 mg PO HS PRN PRN Reason: Insomnia Last Admin: 11/27/17 21:08 Dose: 50 mg Enoxaparin Sodium (Lovenox) 40 mg SC DAILY [facility] Last Admin: 11/27/17 10:04 Dose: 40 mg Gabapentin (Neurontin) 300 mg PO TID [facility] Last Admin: 11/27/17 17:40 Dose: 300 mg Glucagon (Glucagen Diagnostic Kit) 0 mg IM STAT PRN; Protocol PRN Reason: Hypoglycemia Protocol Dextrose (Dextrose 5% In Water 1000 Ml) 1,000 mls @ 0 mls/hr IV .Q0M PRN; Protocol; Per Protocol PRN Reason: Hypoglycemia Protocol Ceftriaxone Sodium (Rocephin Iv 1 Gm Duplex) 50 mls @ 100 mls/hr IVPB DAILY [facility] PRN Reason: Protocol Last Admin: 11/27/17 10:05 Dose: 100 mls/hr Vancomycin/Sodium Chloride (Vancomycin 1 Gm/Ns 200 Ml) 1 gm in 200 mls @ 133.333 mls/hr IVPB Q12H [facility] PRN Reason: Protocol Last Admin: 11/27/17 21:09 Dose: 133.333 mls/hr Piperacillin Sod/Tazobactam Sod (Zosyn 3.375 Gm Iv Premix) 3.375 gm in 50 mls @ 100 mls/hr IVPB Q6H [facility] PRN Reason: Protocol Last Admin: 11/28/17 04:40 Dose: 100 mls/hr Ibuprofen (Motrin Tab) 800 mg PO Q8 PRN PRN Reason: Fever >100.4 F Last Admin: 11/26/17 00:38 Dose: 800 mg Insulin Aspart (Novolog) 0 unit SC ACHS [facility] PRN Reason: Protocol Last Admin: 11/27/17 21:40 Dose: Not Given [place] Carbonate ([place] Carbonate 300mg) 300 mg PO TID [facility] Last Admin: 11/27/17 17:40 Dose: 300 mg Nicotine (Nicoderm Cq) 1 patch TD DAILY [facility] Last Admin: 11/27/17 10:06 Dose: 1 patch Tramadol HCl (Ultram) 50 mg PO TID PRN PRN Reason: Pain, severe (8-10) Last Admin: 11/27/17 21:08 Dose: 50 mg - Labs Labs: 11/26/17 06:52 11/26/17 06:52 - Constitutional Appears: Well, Non-toxic, No Acute Distress - Head Exam Head Exam: NORMOCEPHALIC - Extremities Exam Additional comments: Lower extremities exam: Vasc: cap. refill < 3 sec in all digits Neuro: gross sensation intact. Rest of the exam couldn't be done as she has b/l posterior splints which was left intact. - Neurological Exam Neurological Exam: Alert, Awake, Oriented x3 Assessment and Plan - Assessment and Plan (Free Text) Assessment: 52 year old female patient was evaluated for 1) left metatarsal 2-4 fractures with possible Lisfranc's ligament injury 2). Right Posterior malleolus fracture 3) Right medial malleolus fracture 4) possible ankle ligamentous injury Plan: Patient seen and evaluated at the bed side Discussed plan in details with attending Dr. Houser X-rays of the bilateral foot and ankle reviewed. CT scan of the bilateral LE reviewed. Imaging showed: 1) left metatarsal 2-4 fractures with possible Lisfranc's ligament injury 2). Right Posterior malleolus fracture 3) Right medial malleolus fracture 4) possible ankle ligamentous injury Bilateral LE AO posterior splints still present and Left intact patient to continue elevating her LE bilaterally. Explained to the patient that we are waiting cardiac, medical and psychiatric clearance to take her to the OR Wednesday 11/29 for ORIF of the right ankle. To F/U cardiac, medical and Psych. clearance before the surgery. Patient to be NPO starting from midnight. All patient questions and concerns answered to her satisfaction. To continue follow up in house by the podiatry team.
[2017-11-28 08:15] LABS: BASO # 0.1 K/uL (0.0-0.2); EOS # 0.7 K/uL (0.0-0.7); HEMOGLOBIN 11.5 g/dL (11.0-16.0); LYMPH # 3.5 K/uL (1.0-4.3); LYMPH % 33.2 % (20.0-40.0); MEAN CELL VOLUME 93.3 fL (81.0-99.0); MEAN CORPUSCULAR HEMOGLOBIN 32.3 pg (27.0-31.0); MEAN CORPUSCULAR HGB CONC 34.7 g/dL (33.0-37.0); MEAN PLATELET VOLUME 8.3 fL (7.2-11.7); MONO # 0.9 K/uL (0.0-0.8); MONO % 8.2 % (0.0-10.0); NEUT # 5.3 K/uL (1.8-7.0); NEUT % 50.6 % (50.0-75.0); NRBC % 0.1 % (0.0-2.0); RBC 3.56 Mil/uL (3.80-5.20); RED CELL DISTRIBUTION WIDTH 13.9 % (11.5-14.5); WHITE BLOOD COUNT 10.6 K/uL (4.8-10.8)
[2017-11-28 08:20] LABS: INR 1.1; PROTHROMBIN TIME 12.1 SECONDS (9.7-12.2)
[2017-11-28] MEDS: (Novolog) Insulin Aspart, Recombinant 100 u/ml 10 ml vial SC SCH ×3 (08:24→17:39)
[2017-11-28 08:30] LABS: ALB/GLOB RATIO 1.2 (1.0-2.1); ALBUMIN 3.6 g/dL (3.5-5.0); ALT/SGPT 23 U/L (9-52); AST/SGOT 16 U/L (14-36); BLOOD UREA NITROGEN 8 mg/dL (7-17); CALCIUM 9.7 mg/dl (8.6-10.4); GFR AFRICAN-AMERICAN > 60; GFR NON-AFRICAN AMERICAN > 60
[2017-11-28] MEDS: cefTRIAXone IV 1 gm in Dextros 50 ML IVPB SCH (09:00)
[2017-11-28] MEDS: Enoxaparin 40 mg Syringe SC SCH (09:24)
[2017-11-28] MEDS: Vancomycin 1 gm/NS 200 ml 1 GM/200 ML BAG IVPB SCH ×2 (09:29→21:29)
--- NOTE | 2017-11-28 23:39 | CP.PCM.PN ---
Objective - Vital Signs/Intake and Output Vital Signs (last 24 hours): Temp Pulse Resp BP Pulse Ox 98.3 F 74 20 122/72 97 11/28/17 15:00 11/28/17 15:00 11/28/17 15:00 11/28/17 15:00 11/28/17 15:00 - Medications Medications: Current Medications Acetaminophen (Tylenol 325mg Tab) 650 mg PO Q6 PRN PRN Reason: Pain, moderate (4-7) Citalopram Hydrobromide (Celexa) 20 mg PO DAILY [facility] Last Admin: 11/28/17 09:23 Dose: 20 mg Dextrose (Dextrose 50% Inj) 0 ml IV STAT PRN; Protocol PRN Reason: Hypoglycemia Protocol Dextrose (Glutose 15) 0 gm PO ONCE PRN; Protocol PRN Reason: Hypoglycemia Protocol Diphenhydramine HCl (Benadryl) 50 mg PO HS PRN PRN Reason: Insomnia Last Admin: 11/28/17 21:29 Dose: 50 mg Enoxaparin Sodium (Lovenox) 40 mg SC DAILY [facility] Last Admin: 11/28/17 09:24 Dose: Not Given Gabapentin (Neurontin) 300 mg PO TID [facility] Last Admin: 11/28/17 17:59 Dose: 300 mg Glucagon (Glucagen Diagnostic Kit) 0 mg IM STAT PRN; Protocol PRN Reason: Hypoglycemia Protocol Ceftriaxone Sodium (Rocephin Iv 1 Gm Duplex) 50 mls @ 100 mls/hr IVPB DAILY [facility] PRN Reason: Protocol Last Admin: 11/28/17 09:00 Dose: 100 mls/hr Vancomycin/Sodium Chloride (Vancomycin 1 Gm/Ns 200 Ml) 1 gm in 200 mls @ 133.333 mls/hr IVPB Q12H [facility] PRN Reason: Protocol Last Admin: 11/28/17 21:29 Dose: 133.333 mls/hr Piperacillin Sod/Tazobactam Sod (Zosyn 3.375 Gm Iv Premix) 3.375 gm in 50 mls @ 100 mls/hr IVPB Q6H [facility] PRN Reason: Protocol Last Admin: 11/28/17 21:30 Dose: 100 mls/hr Ibuprofen (Motrin Tab) 800 mg PO Q8 PRN PRN Reason: Fever >100.4 F Last Admin: 11/26/17 00:38 Dose: 800 mg Insulin Aspart (Novolog) 0 unit SC ACHS [facility] PRN Reason: Protocol Last Admin: 11/28/17 17:39 Dose: Not Given [place] Carbonate ([place] Carbonate 300mg) 300 mg PO TID [facility] Last Admin: 11/28/17 17:59 Dose: 300 mg Nicotine (Nicoderm Cq) 1 patch TD DAILY [facility] Last Admin: 11/28/17 09:23 Dose: 1 patch Tramadol HCl (Ultram) 50 mg PO TID PRN PRN Reason: Pain, severe (8-10) Last Admin: 11/28/17 21:28 Dose: 50 mg - Labs Labs: 11/28/17 08:01 11/28/17 08:01 PT 12.1 SECONDS (9.7-12.2) 11/28/17 08:01 INR 1.1 11/28/17 08:01 APTT 28 SECONDS (21-34) 11/28/17 08:01
--- NOTE | 2017-11-28 23:40 | PN ---
DATE: 11/28/2017 SUBJECTIVE: The patient has bilateral foot pain. She is for OR. She is afebrile. She is on antibiotics. PHYSICAL EXAMINATION: LUNGS: Clear. CVS: S1, S2 regular. ABDOMEN: Soft. EXTREMITIES: Bilateral foot wrap. ASSESSMENT: 1. Bilateral foot fractures, recurrent trauma. 2. Fever. White blood count, rule out septicemia. 3. Polysubstance abuse. PLAN: Antibiotics. WBC count. Monitor the patient. Eduard Peterson MD
--- NOTE | 2017-11-28 23:58 | CP.PCM.PCO ---
Physician Communication Note - Physician Communication Note Physician Communication Note: medically stable for or wit average risk
--- NOTE | 2017-11-29 02:57 | CON ---
DATE: 11/28/2017 CARDIOLOGY CONSULTATION This is a brief consultation note for the consult that was conducted on 11/26/2017 as it is missing from the [employer] database. HISTORY OF PRESENT ILLNESS: The patient is a 52 years old female who has a history of bipolar disorder, was admitted after she sustained multiple falls at home with subsequent right bimalleolar fracture as well as left metatarsal bone fracture. The patient stated that each time she tried to stand up, she to the floor. Does not recall palpitation. At that time, her aunt who lives with her at home was not at home at that time and when they came back, she activated EMS and the patient was going to the emergency room. The patient denies any prior similar scenario of falling. The patient denies history of any substernal chest pain. MEDICATIONS: Benadryl 50 mg at bedtime, Celexa 20 mg once a day, Lovenox 20 mg subcutaneous twice a day, Ibuprofen 800 mg p.o. every 8 hours for fever of more than 100.4, lithium 300 mg t.i.d., gabapentin 300 mg t.i.d., Nicoderm patch, Rocephin 1 gm intravenously daily, vancomycin 1 gm intravenously every 12 hours, Zosyn 3.375 g intravenously every 6 hours. REVIEW OF SYSTEMS: The patient denied any nausea or vomiting. No retrosternal chest pain. The patient denies any suicidal ideation at this time and denies being assaulted. PHYSICAL EXAMINATION: GENERAL: The patient is a middle-aged female who does not appear to be in acute distress. VITAL SIGNS: On the day I saw the patient, blood pressure was 120/76, heart rate 89, temperature 99.7, respirations 20. HEENT: Significant for periorbital ecchymosis. NECK: No JVD. CHEST: Clear. HEART: S1 and S2 are regular. EXTREMITIES: Dressings applied to both feet and legs. LABORATORY DATA: Head CT scan without contrast: Deformity of right nasal bone suggestive of nasal bone fracture. Lower extremity CT scan: Right foot bimalleolar fracture and left foot second, third, and fourth metatarsal fractures involving the bases. ASSESSMENT: 1. Status post recurrent falls with right bimalleolar, left metatarsal bone fractures as well as nasal fracture. 2. Bipolar disorder. 3. Escherichia coli urinary tract infection. RECOMMENDATIONS: Continue current lithium, subcutaneous Lovenox, Nicoderm patch, IV vancomycin, IV Rocephin and IV Zosyn. Obtain chest CT angio to rule out pulmonary embolus. Cruz Burch MD
[2017-11-29] MEDS: Piperacill/Tazo 3.375gm in Dex 3.375 GM/50 ML BAG IVPB SCH ×4 (04:42→22:14)
--- NOTE | 2017-11-29 04:55 | PN ---
DATE: 11/28/2017 SUBJECTIVE: The patient is for OR. She is medically stable. No chest pain. PHYSICAL EXAMINATION: LUNGS: Clear. CVS: S1, S2 are regular. ABDOMEN: Soft. ASSESSMENT: 1. Bilateral foot fractures with cellulitis. 2. Dehydration. 3. Anxiety disorder. PLAN: The patient is medically stable for OR. Eduard Peterson MD
--- NOTE | 2017-11-29 07:32 | CON ---
DATE: 11/26/2017 CARDIOLOGY CONSULTATION REASON FOR CONSULTATION: Preoperative evaluation. HISTORY OF PRESENT ILLNESS: The patient is a 52 years old female with a history of opiate abuse, history of bipolar disorder who was brought into the emergency department by her aunt after she had multiple falls as well as nasal and foot fractures. The history was obtained from the patient. She stated that she keeps falling when she tried to stand up, and there was no history of assault. At that time, the patient's aunt was outside the house and did not witness the falls. The patient does not recall experiencing palpitation, but she did experience dizziness each time she tried to stand up. The patient denies any prior similar episodes of fall or fractures. The patient does not recall experiencing palpitation. SOCIAL HISTORY: The patient is a smoker but denies EtOH abuse. MEDICATIONS: Celexa 20 mg once a day, Desyrel 100 mg at bedtime, K-Dur 20 mEq p.o. once a day, lithium 300 mg t.i.d, Lovenox 40 mg subcutaneously twice a day, Neurontin 300 mg t.i.d., nicotine patch (15 mg) t.i.d. REVIEW OF SYSTEMS: The patient denies any nausea or vomiting. Denies any chest pain. She complains of mild headache. PAST MEDICAL HISTORY: Bipolar disorder, opiate abuse. PHYSICAL EXAMINATION: GENERAL: The patient is a middle-aged female who does not appear to be in acute distress. HEENT: Significant right periorbital ecchymosis . CHEST: Clear. HEART: S1, S2 are regular. ABDOMEN: Soft. EXTREMITIES: There is lower extremities and feet. LABORATORY DATA: Toxicology: Positive for benzodiazepines. Alva level is 0.3. SMA-7: Sodium 142, potassium 4, chloride 107, CO2 of 26, glucose 124, BUN 9, creatinine 0.6. CBC: WBC 20, hemoglobin 13, hematocrit 38.6, platelet count 217,000. IMAGING: Lower extremity CAT scan without contrast revealed, 1. On the right foot, vertically oriented curvilinear fracture deformities through the posterior malleolus of the distal tibia extending from the posterior cortex to the intra-articular surface. 2. Fracture deformity through the medial malleolus of the distal tibia with intra-articular extension, on the left foot, prominent markedly comminuted fracture deformity. 3. Intra-articular extension noted at the bases of second, third, and fourth metatarsals with intra-articular extension. Multiple comminuted fractures, fragments which are distracted at the base of the second metatarsal bone. Foot x-ray revealed comminuted intra-articular fracture of the base of the left second, third, and fourth metatarsals. Maxillofacial scan without contrast, nasal bone fracture, noted anterior to the right orbital globe. Ankle x-ray bilaterally revealed minimally displaced right medial malleolar fracture. Head CT scan without contrast, deformity of the right nasal bone suggests nasal bone fracture. EKG has not been performed yet. Review of echocardiogram revealed normal systolic function. Chest x-ray was unremarkable. ASSESSMENT: 1. Multiple falls and bilateral right malleolar fractures with left second, third, and fourth comminuted metatarsal fractures. 2. Pathologic disorder. 3. Leukocytosis. 4. Uncontrolled diabetes mellitus. 5. Hypokalemia, on admission. RECOMMENDATIONS: Continue current K-Dur 20 mEq orally once a day, subcutaneous Lovenox 40 mg once a day, Rocephin at 1 gm intravenously daily, vancomycin 1 gm intravenously every 12 hours. I ordered stat EKG. Obtain serum D-dimer. Cruz Burch MD
[2017-11-29] MEDS: (Novolog) Insulin Aspart, Recombinant 100 u/ml 10 ml vial SC SCH ×4 (08:27→21:15)
--- NOTE | 2017-11-29 09:41 | VASCLAB ---
PROCEDURE: Lower Extremity Venous Duplex Exam. HISTORY: Pain PRIORS: None. TECHNIQUE: Bilateral common femoral, femoral, popliteal and posterior tibial, peroneal and great saphenous veins were evaluated. Flow was assessed with color Doppler, compressibility, assessment of phasic flow and augmentation response. Report prepared by HUA Negron FINDINGS: RIGHT: 1. Common Femoral Vein: 1.1. Compressibility - Fully compressible: Thrombus - None : Flow - Phasic: Augmentation -Normal: Reflux - None. 2. Femoral Vein: 2.1. Compressibility - Fully compressible: Thrombus - None : Flow - Phasic: Augmentation -Normal: Reflux - None. 3. Popliteal Vein: 3.1. Compressibility - Fully compressible: Thrombus - None : Flow - Phasic: Augmentation -Normal: Reflux - None. 4. Posterior Tibial Vein: 4.1. UNABLE TO EXAMINE DUE TO SPLINT AND BANDAGES 5. Peroneal Vein: UNABLE TO EXAMINE 6. Great Saphenous Vein: 6.1. Compressibility - Fully compressible: Thrombus - None: Flow - Phasic: Augmentation - Normal: Reflux - None. LEFT: 1. Common Femoral Vein: 1.1. Compressibility - Fully compressible: Thrombus - None: Flow - Phasic: Augmentation -Normal: Reflux - None. 2. Femoral Vein: 2.1. Compressibility - Fully compressible: Thrombus - None: Flow - Phasic: Augmentation -Normal: Reflux - None. 3. Popliteal Vein: 3.1. Compressibility - Fully compressible: Thrombus - None : Flow - Phasic: Augmentation -Normal: Reflux - None. 4. Posterior Tibial Vein: 4.1. UNABLE TO EXAMINE DUE TO SPLINT AND BANDAGES 5. Peroneal Vein: 5.1. UNABLE TO EXAMINE 6. Great Saphenous Vein: 6.1. Compressibility - Fully compressible: Thrombus - None: Flow - Phasic: Augmentation - Normal: Reflux - None. OTHER FINDINGS: Right: None significant. Left: None significant. IMPRESSION: No evidence of deep or superficial vein thrombosis of bilateral lower extremities, for those imaged veins.
--- NOTE | 2017-11-29 10:08 | PN ---
DATE: 11/28/2017 SUBJECTIVE: The patient did report dizziness to me, but not to the nurse. No reported arrhythmia on the monitor. PHYSICAL EXAMINATION: VITAL SIGNS: Blood pressure 110/73, heart rate 67, temperature 97.5, and respirations 20. HEENT: Right eye ecchymosis. CHEST: Clear. HEART: S1, S2 regular. EXTREMITIES: Dressing is applied to both lower extremities. LABORATORY DATA: Today's hemoglobin and hematocrit are 11.5 and 33.2, white count and platelet count are within normal limits. Today's SMA-7 is within normal limits except creatinine of 0.6. Duplex scan of the lower extremity was done, but no official report is available yet and no preliminary report either. ASSESSMENT: 1. Status post multiple falls with right bimalleolar fracture and left foot metatarsal fracture. 2. Bipolar disorder. 3. Nasal bone fracture. RECOMMENDATIONS: Continue 300 mg twice a day, Lovenox 40 mg subcutaneously once a day, nicotine patch, IV Rocephin at 1 gm daily, vancomycin 1 gm every 12 hours, and Zosyn at 3.375 gm intravenously every 6 hours. The case was discussed with the medical practitioners. If the venous duplex study of the lower extremity is negative, the patient can undergo full surgery for her right-sided malleolar fracture in the a.m. In the meantime, I still notice that the initial consult that was done 2 days ago is still missing from the medical database, and I will re-dictate this consult as a replacement. Cruz Burch MD
--- NOTE | 2017-11-29 12:37 | RAD ---
PROCEDURE: Radiographs of the right tibia and fibula. HISTORY: r/o high fibular fracture COMPARISON: None available. TECHNIQUE: Frontal and lateral views obtained. FINDINGS: BONES: Minimally displaced fracture of the fibular head. JOINT SPACES: Unremarkable. OTHER FINDINGS: None. IMPRESSION: Minimally displaced fibular head fracture.
[2017-11-29] MEDS: cefTRIAXone IV 1 gm in Dextros 50 ML IVPB SCH (12:41)
[2017-11-29] MEDS: Vancomycin 1 gm/NS 200 ml 1 GM/200 ML BAG IVPB SCH (12:47)
[2017-11-29] MEDS ORDERED: Bupivacaine 0.25% 20 ML INJ IJ ONE ×2 (14:50→14:52)
[2017-11-29] MEDS ORDERED: ceFAZolin IV 1 gm in Dextrose 0 GM/0 ML BAG IVPB ONE (14:50)
[2017-11-29] MEDS ORDERED: Lidocaine Hydrochloride 0 ML INJ ONE (14:50)
[2017-11-29] MEDS ORDERED: Propofol 10 mg/ml Inj (20 ML) ONE (15:47)
[2017-11-29] MEDS ORDERED: Midazolam 2 MG/2 ML VIAL ONE (15:47)
[2017-11-29] MEDS ORDERED: Phenylephrine 10 mg/ml Inj ONE (16:04)
--- NOTE | 2017-11-29 16:24 | CARD ---
APPROVED REPORT EKG Measurement Heart [id number] <Conclusion> Normal sinus rhythm Possible Left atrial enlargement Borderline ECG
[2017-11-29] MEDS ORDERED: ePHEDrine 50 mg/ml Inj ONE (16:52)
[2017-11-29] MEDS ORDERED: HYDROmorphone 0.5 mg/0.5 ml ISec IVP PRN (18:41)
--- NOTE | 2017-11-29 18:43 | PCM.SURG1 ---
Surgeon's Initial Post Op Note - Surgeon's Notes Surgeon: Dr. Houser Geological Sample Tester: Fe Olivera PGY3, David Cardoza PGY2, Mandeep Rinaldi PGY2 Type of Anesthesia: General LMA Anesthesia Administered By: Dr. Velazquez Pre-Operative Diagnosis: Right trimalleolar ankle fracture Operative Findings: See operative report. Materials: Synthes 3.5mm hook plate, 3.5x30mm cortical screw, 3.5x36mm cortical screw, 3.5x42mm partially threaded screw, Arthrex TightRope, 2-0 vicryl, 3-0 vicryl, 4-0 vicryl, 3-0 nylon. Injectables: 10cc 0.5% marcaine plain Post-Operative Diagnosis: Same as above Operation Performed: 1) Right ankle fracture ORIF. 2) Right ankle syndesmotic repair Specimen/Specimens Removed: None Estimated Blood Loss: EBL {In ML}: 5 Blood Products Given: N/A Drains Used: No Drains Post-Op Condition: Good Date of Surgery/Procedure: 11/29/17 Time of Surgery/Procedure: 18:44
--- NOTE | 2017-11-29 18:51 | RAD ---
PROCEDURE: Intraoperative Fluoroscopy. HISTORY: RT ANKLE FX FINDINGS: Fluoroscopic assistance was provided for open reduction internal fixation.. Please refer to the operative report from JJ Bolanos. Total fluoroscopic time (continuous mode) utilized during the procedure (seconds) 176.8 Total exam DLP: 10.25 (mGy)
--- NOTE | 2017-11-29 19:26 | PN ---
DATE: 11/29/2017 SUBJECTIVE: The patient denies any chest pain, shortness of breath, dizziness, or palpitation. No reported arrhythmia on the monitor. PHYSICAL EXAMINATION: VITAL SIGNS: Blood pressure 122/67, heart rate 76, temperature 98.6, respirations 20. HEENT: Right periorbital ecchymosis . CHEST: Clear. HEART: S1 and S2 regular. LABORATORY DATA: Today's blood sugars are 87 and 100. ASSESSMENT: 1. Status post multiple falls with right bimalleolar ankle fracture and left metatarsal fractures. 2. Bipolar disorder. RECOMMENDATIONS: Continue current Neurontin 300 mg t.i.d., Zosyn 3.375 gm intravenously every 6 hours, lithium 300 mg twice a day, Lovenox is on hold and the plan is to perform suturing on the bimalleolar fracture of the right ankle. remain in postoperative telemetry monitoring. Cruz Burch MD
[2017-11-29] MEDS: Oxycodone/Acetaminophen 5/325 mg Tab PO PRN (21:10)
--- NOTE | 2017-11-29 23:54 | CP.PCM.PN ---
Subjective - Date & Time of Evaluation Date of Evaluation: 11/29/17 Time of Evaluation: 17:40 - Subjective Subjective: Pt seen and examined at bedside Objective - Vital Signs/Intake and Output Vital Signs (last 24 hours): Temp Pulse Resp BP Pulse Ox 98.3 F 80 18 135/80 98 11/29/17 20:40 11/29/17 22:43 11/29/17 20:40 11/29/17 20:40 11/29/17 20:40 Intake and Output: 11/29/17 11/30/17 18:59 06:59 Intake Total 1250 800 Balance 1250 800 - Medications Medications: Current Medications Acetaminophen (Tylenol 325mg Tab) 650 mg PO Q6 PRN PRN Reason: Pain, moderate (4-7) Citalopram Hydrobromide (Celexa) 20 mg PO DAILY [facility] Last Admin: 11/29/17 09:57 Dose: 20 mg Dextrose (Dextrose 50% Inj) 0 ml IV STAT PRN; Protocol PRN Reason: Hypoglycemia Protocol Dextrose (Glutose 15) 0 gm PO ONCE PRN; Protocol PRN Reason: Hypoglycemia Protocol Diphenhydramine HCl (Benadryl) 50 mg PO HS PRN PRN Reason: Insomnia Last Admin: 11/28/17 21:29 Dose: 50 mg Enoxaparin Sodium (Lovenox) 40 mg SC DAILY [facility] Last Admin: 11/28/17 09:24 Dose: Not Given Gabapentin (Neurontin) 300 mg PO TID [facility] Last Admin: 11/29/17 21:10 Dose: 300 mg Glucagon (Glucagen Diagnostic Kit) 0 mg IM STAT PRN; Protocol PRN Reason: Hypoglycemia Protocol Piperacillin Sod/Tazobactam Sod (Zosyn 3.375 Gm Iv Premix) 3.375 gm in 50 mls @ 100 mls/hr IVPB Q6H [facility] PRN Reason: Protocol Last Admin: 11/29/17 22:14 Dose: 100 mls/hr Ibuprofen (Motrin Tab) 800 mg PO Q8 PRN PRN Reason: Fever >100.4 F Last Admin: 11/26/17 00:38 Dose: 800 mg Insulin Aspart (Novolog) 0 unit SC ACHS [facility] PRN Reason: Protocol Last Admin: 11/29/17 21:15 Dose: Not Given [place] Carbonate ([place]ank Carbonate 300mg) 300 mg PO TID [facility] Last Admin: 11/29/17 21:10 Dose: 300 mg Nicotine (Nicoderm Cq) 1 patch TD DAILY [facility] Last Admin: 11/29/17 09:56 Dose: 1 patch Oxycodone/Acetaminophen (Percocet 5/325 Mg Tab) 1 tab PO Q4H PRN PRN Reason: Pain, moderate (4-7) Stop: 12/02/17 18:44 Oxycodone/Acetaminophen (Percocet 5/325 Mg Tab) 2 tab PO Q4H PRN PRN Reason: Pain, severe (8-10) Stop: 12/02/17 18:44 Last Admin: 11/29/17 21:10 Dose: 2 tab Tramadol HCl (Ultram) 50 mg PO TID PRN PRN Reason: Pain, severe (8-10) Last Admin: 11/28/17 21:28 Dose: 50 mg - Labs Labs: 11/28/17 08:01 11/28/17 08:01 PT 12.1 SECONDS (9.7-12.2) 11/28/17 08:01 INR 1.1 11/28/17 08:01 APTT 28 SECONDS (21-34) 11/28/17 08:01
[2017-11-30] MEDS: Oxycodone/Acetaminophen 5/325 mg Tab PO PRN ×5 (00:25→19:28)
[2017-11-30] MEDS: Piperacill/Tazo 3.375gm in Dex 3.375 GM/50 ML BAG IVPB SCH ×4 (03:30→22:52)
[2017-11-30 07:29] LABS: BASO # 0.1 K/uL (0.0-0.2); BASO % 0.7 % (0.0-2.0); EOS # 0.3 K/uL (0.0-0.7); EOS % 2.5 % (0.0-4.0); HEMOGLOBIN 11.3 g/dL (11.0-16.0); LYMPH # 2.6 K/uL (1.0-4.3); LYMPH % 20.1 % (20.0-40.0); MEAN CELL VOLUME 93.7 fL (81.0-99.0); MEAN CORPUSCULAR HEMOGLOBIN 31.8 pg (27.0-31.0); MEAN CORPUSCULAR HGB CONC 33.9 g/dL (33.0-37.0); MEAN PLATELET VOLUME 8.1 fL (7.2-11.7); MONO # 1.1 K/uL (0.0-0.8); MONO % 8.3 % (0.0-10.0); NEUT # 8.8 K/uL (1.8-7.0); NEUT % 68.4 % (50.0-75.0); RBC 3.55 Mil/uL (3.80-5.20); RED CELL DISTRIBUTION WIDTH 13.6 % (11.5-14.5); WHITE BLOOD COUNT 12.8 K/uL (4.8-10.8)
[2017-11-30] MEDS: (Novolog) Insulin Aspart, Recombinant 100 u/ml 10 ml vial SC SCH ×4 (07:47→21:47)
[2017-11-30 07:49] LABS: ALB/GLOB RATIO 1.2 (1.0-2.1); ALBUMIN 3.5 g/dL (3.5-5.0); ALT/SGPT 33 U/L (9-52); AST/SGOT 26 U/L (14-36); BLOOD UREA NITROGEN 8 mg/dL (7-17); CALCIUM 9.3 mg/dl (8.6-10.4); GFR AFRICAN-AMERICAN > 60; GFR NON-AFRICAN AMERICAN > 60
--- NOTE | 2017-11-30 08:40 | RAD ---
Date of service: 11/29/2017 PROCEDURE: Right Ankle Radiographs. HISTORY: s/p right ankle surgery COMPARISON: Foot ankle ages 11/25/2017 FINDINGS: BONES: Hardware compatible with fixation of a medial malleolar and posterior malleolar fracture with a syndesmotic button treatment. Hardware intact appearing no interval fractures appreciated JOINTS: Anterior tibiotalar joint- arthrosis and mild dorsal proximal asymmetrical navicular sided the arthrosis at talonavicular articulation. . Ankle mortise now grossly maintained. Limited visualization of the lateral talar dome. Medial talar dome appears intact SOFT TISSUES: Diffuse soft tissues OTHER FINDINGS: None. IMPRESSION: Orthopedic treatment -as above
[2017-11-30 16:15] VITALS: RESP 20
--- NOTE | 2017-11-30 16:44 | CP.PCM.PN ---
Subjective - Date & Time of Evaluation Date of Evaluation: 11/30/17 Time of Evaluation: 11:00 - Subjective Subjective: Podiatry Progress note: Dr. Houser 52 year old female patient was seen and evaluated this morning 1 day s/p right ankle ORIF. Patient is AAOx3 and resting comfortably in her bed. Patient states that her lower extremity pain is well controlled. Patient denies of any other acute overnight events. She denies any F/N/V/C/SOB/CP/headache. Patient denies any other pedal complains at this time. Objective - Vital Signs/Intake and Output Vital Signs (last 24 hours): Temp Pulse Resp BP Pulse Ox 99.4 F 97 H 20 135/80 96 11/30/17 16:00 11/30/17 16:00 11/30/17 16:00 11/30/17 16:00 11/30/17 16:00 Intake and Output: 11/30/17 11/30/17 06:59 18:59 Intake Total 800 600 Balance 800 600 - Medications Medications: Current Medications Acetaminophen (Tylenol 325mg Tab) 650 mg PO Q6 PRN PRN Reason: Pain, moderate (4-7) Citalopram Hydrobromide (Celexa) 20 mg PO DAILY [facility] Last Admin: 11/30/17 10:05 Dose: 20 mg Dextrose (Dextrose 50% Inj) 0 ml IV STAT PRN; Protocol PRN Reason: Hypoglycemia Protocol Dextrose (Glutose 15) 0 gm PO ONCE PRN; Protocol PRN Reason: Hypoglycemia Protocol Diphenhydramine HCl (Benadryl) 50 mg PO HS PRN PRN Reason: Insomnia Last Admin: 11/28/17 21:29 Dose: 50 mg Enoxaparin Sodium (Lovenox) 40 mg SC DAILY [facility] Last Admin: 11/28/17 09:24 Dose: Not Given Gabapentin (Neurontin) 300 mg PO TID [facility] Last Admin: 11/30/17 13:53 Dose: 300 mg Glucagon (Glucagen Diagnostic Kit) 0 mg IM STAT PRN; Protocol PRN Reason: Hypoglycemia Protocol Piperacillin Sod/Tazobactam Sod (Zosyn 3.375 Gm Iv Premix) 3.375 gm in 50 mls @ 100 mls/hr IVPB Q6H [facility] PRN Reason: Protocol Last Admin: 11/30/17 10:03 Dose: 100 mls/hr Ibuprofen (Motrin Tab) 800 mg PO Q8 PRN PRN Reason: Fever >100.4 F Last Admin: 11/26/17 00:38 Dose: 800 mg Insulin Aspart (Novolog) 0 unit SC ACHS [facility] PRN Reason: Protocol Last Admin: 11/30/17 11:53 Dose: Not Given [place] Carbonate ([place] Carbonate 300mg) 300 mg PO TID [facility] Last Admin: 11/30/17 13:53 Dose: 300 mg Nicotine (Nicoderm Cq) 1 patch TD DAILY [facility] Last Admin: 11/30/17 10:04 Dose: 1 patch Oxycodone/Acetaminophen (Percocet 5/325 Mg Tab) 1 tab PO Q4H PRN PRN Reason: Pain, moderate (4-7) Stop: 12/02/17 18:44 Last Admin: 11/30/17 14:30 Dose: 1 tab Oxycodone/Acetaminophen (Percocet 5/325 Mg Tab) 2 tab PO Q4H PRN PRN Reason: Pain, severe (8-10) Stop: 12/02/17 18:44 Last Admin: 11/30/17 10:00 Dose: 2 tab Tramadol HCl (Ultram) 50 mg PO TID PRN PRN Reason: Pain, severe (8-10) Last Admin: 11/28/17 21:28 Dose: 50 mg - Labs Labs: 11/30/17 06:38 11/30/17 06:38 PT 12.1 SECONDS (9.7-12.2) 11/28/17 08:01 INR 1.1 11/28/17 08:01 APTT 28 SECONDS (21-34) 11/28/17 08:01 - Constitutional Appears: Well, Non-toxic, No Acute Distress - Extremities Exam Additional comments: Posterior splint to b/l LE intact. Clean and dry with no strikethrough. Cap refill time: < 3 sec to all digits; AROM at the MTPJ intact - Neurological Exam Neurological Exam: Alert, Awake, Oriented x3 - Psychiatric Exam Psychiatric exam: Normal Affect, Normal Mood Assessment and Plan - Assessment and Plan (Free Text) Assessment: 52 year old female patient was evaluated for 1) 1 day s/p right ankle ORIF 2) left metatarsal 2-4 fractures with possible Lisfranc's ligament injury Plan: Patient seen and evaluated at the bedside Discussed plan in details with attending Dr. Houser Pre-op X-rays and CT of the bilateral foot and ankle reviewed. CT scan of the bilateral LE reviewed. Imaging demonstrated: 1) left metatarsal 2-4 fractures with possible Lisfranc 's ligament injury 2). Right Posterior malleolus fracture 3) Right medial malleolus fracture 4) possible ankle ligamentous injury Bilateral LE AO posterior splints intact Patient to continue elevating LE bilaterally Remain NWB to b/l LE Podiatry Plans Left foot Lisfranc's ORIF this Wednesday (12/03) Podiatry to follow patient while in-house
--- NOTE | 2017-12-01 00:04 | CP.PCM.PN ---
Subjective - Date & Time of Evaluation Date of Evaluation: 11/30/17 Time of Evaluation: 17:35 - Subjective Subjective: pt seen & examined , pt is for OR on wednesday, medically stab;e pt is feeling well, afebrile, b/l LE dressing is there Objective - Vital Signs/Intake and Output Vital Signs (last 24 hours): Temp Pulse Resp BP Pulse Ox 99.4 F 97 H 20 135/80 96 11/30/17 16:00 11/30/17 16:00 11/30/17 16:00 11/30/17 16:00 11/30/17 16:00 Intake and Output: 11/30/17 12/01/17 18:59 06:59 Intake Total 600 350 Balance 600 350 - Medications Medications: Current Medications Acetaminophen (Tylenol 325mg Tab) 650 mg PO Q6 PRN PRN Reason: Pain, moderate (4-7) Citalopram Hydrobromide (Celexa) 20 mg PO DAILY [facility] Last Admin: 11/30/17 10:05 Dose: 20 mg Dextrose (Dextrose 50% Inj) 0 ml IV STAT PRN; Protocol PRN Reason: Hypoglycemia Protocol Dextrose (Glutose 15) 0 gm PO ONCE PRN; Protocol PRN Reason: Hypoglycemia Protocol Diphenhydramine HCl (Benadryl) 50 mg PO HS PRN PRN Reason: Insomnia Last Admin: 11/28/17 21:29 Dose: 50 mg Enoxaparin Sodium (Lovenox) 40 mg SC DAILY [facility] Last Admin: 11/28/17 09:24 Dose: Not Given Gabapentin (Neurontin) 300 mg PO TID [facility] Last Admin: 11/30/17 17:26 Dose: 300 mg Glucagon (Glucagen Diagnostic Kit) 0 mg IM STAT PRN; Protocol PRN Reason: Hypoglycemia Protocol Piperacillin Sod/Tazobactam Sod (Zosyn 3.375 Gm Iv Premix) 3.375 gm in 50 mls @ 100 mls/hr IVPB Q6H [facility] PRN Reason: Protocol Last Admin: 11/30/17 22:52 Dose: 100 mls/hr Ibuprofen (Motrin Tab) 800 mg PO Q8 PRN PRN Reason: Fever >100.4 F Last Admin: 11/26/17 00:38 Dose: 800 mg Insulin Aspart (Novolog) 0 unit SC ACHS [facility] PRN Reason: Protocol Last Admin: 11/30/17 21:47 Dose: Not Given [place] Carbonate ([place] Carbonate 300mg) 300 mg PO TID [facility] Last Admin: 11/30/17 17:27 Dose: 300 mg Nicotine (Nicoderm Cq) 1 patch TD DAILY [facility] Last Admin: 11/30/17 10:04 Dose: 1 patch Oxycodone/Acetaminophen (Percocet 5/325 Mg Tab) 1 tab PO Q4H PRN PRN Reason: Pain, moderate (4-7) Stop: 12/02/17 18:44 Last Admin: 11/30/17 14:30 Dose: 1 tab Oxycodone/Acetaminophen (Percocet 5/325 Mg Tab) 2 tab PO Q4H PRN PRN Reason: Pain, severe (8-10) Stop: 12/02/17 18:44 Last Admin: 11/30/17 19:28 Dose: 2 tab Tramadol HCl (Ultram) 50 mg PO TID PRN PRN Reason: Pain, severe (8-10) Last Admin: 11/28/17 21:28 Dose: 50 mg - Labs Labs: 11/30/17 06:38 11/30/17 06:38 PT 12.1 SECONDS (9.7-12.2) 11/28/17 08:01 INR 1.1 11/28/17 08:01 APTT 28 SECONDS (21-34) 11/28/17 08:01 - Constitutional Appears: No Acute Distress - Head Exam Head Exam: ATRAUMATIC, NORMAL INSPECTION, NORMOCEPHALIC - Eye Exam Eye Exam: EOMI, Normal appearance, PERRL Pupil Exam: NORMAL ACCOMODATION, PERRL - ENT Exam ENT Exam: Mucous Membranes Moist, Normal Exam - Respiratory Exam Respiratory Exam: Clear to Ausculation Bilateral, NORMAL BREATHING PATTERN - Cardiovascular Exam Cardiovascular Exam: REGULAR RHYTHM, +S1, +S2. absent: Murmur - GI/Abdominal Exam GI & Abdominal Exam: Soft, Normal Bowel Sounds. absent: Tenderness Assessment and Plan (1) Polysubstance (excluding opioids) dependence Status: Acute (2) Closed right ankle fracture Status: Acute (3) Fever Status: Acute (4) Foot fracture, left Status: Acute (5) Diabetes Status: Chronic
[2017-12-01] MEDS: Piperacill/Tazo 3.375gm in Dex 3.375 GM/50 ML BAG IVPB SCH ×4 (03:44→22:42)
[2017-12-01] MEDS: Oxycodone/Acetaminophen 5/325 mg Tab PO PRN ×2 (03:44→10:40)
[2017-12-01] MEDS: (Novolog) Insulin Aspart, Recombinant 100 u/ml 10 ml vial SC SCH ×4 (07:38→22:21)
[2017-12-01 07:41] LABS: BASO # 0.1 K/uL (0.0-0.2); BASO % 0.8 % (0.0-2.0); EOS # 0.4 K/uL (0.0-0.7); EOS % 2.8 % (0.0-4.0); HEMOGLOBIN 11.2 g/dL (11.0-16.0); LYMPH # 3.3 K/uL (1.0-4.3); LYMPH % 22.2 % (20.0-40.0); MEAN CORPUSCULAR HEMOGLOBIN 32.5 pg (27.0-31.0); MEAN PLATELET VOLUME 7.8 fL (7.2-11.7); MONO # 1.2 K/uL (0.0-0.8); NEUT # 9.8 K/uL (1.8-7.0); NEUT % 66.2 % (50.0-75.0); RBC 3.45 Mil/uL (3.80-5.20); RED CELL DISTRIBUTION WIDTH 13.7 % (11.5-14.5); WHITE BLOOD COUNT 14.9 K/uL (4.8-10.8)
[2017-12-01 07:51] LABS: ALB/GLOB RATIO 1.1 (1.0-2.1); ALBUMIN 3.6 g/dL (3.5-5.0); ALT/SGPT 23 U/L (9-52); AST/SGOT 14 U/L (14-36); BLOOD UREA NITROGEN 8 mg/dL (7-17); CALCIUM 9.8 mg/dl (8.6-10.4); GFR AFRICAN-AMERICAN > 60; GFR NON-AFRICAN AMERICAN > 60
--- NOTE | 2017-12-01 08:01 | PN ---
DATE: 11/30/2017 SUBJECTIVE: The patient underwent open reduction and internal fixation of right ankle fracture by Dr. Houser. No chest pain and no reported ventricular arrhythmia. PHYSICAL EXAMINATION: VITAL SIGNS: Blood pressure 118/69, heart rate 81, temperature 98.4, and respirations 18. HEENT: Normocephalic. CHEST: Clear. HEART: S1 and S2 regular. LABORATORY DATA: Today's SMA-7, sodium 140, potassium 3.6, chloride of 104, CO2 is 28, glucose 114, BUN 8, creatinine 0.5. Today's hemoglobin and hematocrit 11.3 and 33.2, white count 12.8, platelet count 285,000. ASSESSMENT: 1. Status post open reduction and internal fixation of right ankle fracture. 2. Status post fall. 3. Bipolar disorder. 4. Gram-negative urinary tract infection. 5. Borderline EKG with left atrial enlargement. RECOMMENDATIONS: Continue current lithium 300 mg twice a day, Lovenox 40 mg subcutaneously once a day once cleared by orthopedic surgeon. Continue Percocet one tablet every 4 hours p.r.n. for pain. IV Zosyn at 3.375 gm every 6 hours. Obtain postoperative 12-lead EKG. Cruz Burch MD
[2017-12-01] MEDS: Enoxaparin 40 mg Syringe SC SCH (10:41)
--- NOTE | 2017-12-01 12:48 | CP.PCM.PN ---
Subjective - Date & Time of Evaluation Date of Evaluation: 12/01/17 Time of Evaluation: 12:46 - Subjective Subjective: Podiatry Progress note: Dr. Houser 52 year old female patient was seen and evaluated this morning 2 days s/p right ankle ORIF. Patient is AAOx3 and resting comfortably in her bed. Patient states that her lower extremity pain is well controlled. Patient denies of any other acute overnight events. She denies any F/N/V/C/SOB/CP/headache. Patient denies any other pedal complains at this time. Objective - Vital Signs/Intake and Output Vital Signs (last 24 hours): Temp Pulse Resp BP Pulse Ox 98.4 F 109 H 20 104/68 98 12/01/17 07:44 12/01/17 07:44 12/01/17 07:44 12/01/17 07:44 12/01/17 07:44 Intake and Output: 12/01/17 12/01/17 06:59 18:59 Intake Total 350 Balance 350 - Medications Medications: Current Medications Acetaminophen (Tylenol 325mg Tab) 650 mg PO Q6 PRN PRN Reason: Pain, moderate (4-7) Citalopram Hydrobromide (Celexa) 20 mg PO DAILY [facility] Last Admin: 12/01/17 10:42 Dose: 20 mg Dextrose (Dextrose 50% Inj) 0 ml IV STAT PRN; Protocol PRN Reason: Hypoglycemia Protocol Dextrose (Glutose 15) 0 gm PO ONCE PRN; Protocol PRN Reason: Hypoglycemia Protocol Diphenhydramine HCl (Benadryl) 50 mg PO HS PRN PRN Reason: Insomnia Last Admin: 11/28/17 21:29 Dose: 50 mg Enoxaparin Sodium (Lovenox) 40 mg SC DAILY [facility] Last Admin: 12/01/17 10:41 Dose: 40 mg Gabapentin (Neurontin) 300 mg PO TID [facility] Last Admin: 12/01/17 10:41 Dose: 300 mg Glucagon (Glucagen Diagnostic Kit) 0 mg IM STAT PRN; Protocol PRN Reason: Hypoglycemia Protocol Piperacillin Sod/Tazobactam Sod (Zosyn 3.375 Gm Iv Premix) 3.375 gm in 50 mls @ 100 mls/hr IVPB Q6H [facility] PRN Reason: Protocol Last Admin: 12/01/17 11:11 Dose: 100 mls/hr Ibuprofen (Motrin Tab) 800 mg PO Q8 PRN PRN Reason: Fever >100.4 F Last Admin: 11/26/17 00:38 Dose: 800 mg Insulin Aspart (Novolog) 0 unit SC ACHS [facility] PRN Reason: Protocol Last Admin: 12/01/17 12:16 Dose: Not Given [place] Carbonate ([place] Carbonate 300mg) 300 mg PO TID [facility] Last Admin: 12/01/17 10:41 Dose: 300 mg Nicotine (Nicoderm Cq) 1 patch TD DAILY [facility] Last Admin: 12/01/17 10:41 Dose: 1 patch Oxycodone/Acetaminophen (Percocet 5/325 Mg Tab) 1 tab PO Q4H PRN PRN Reason: Pain, moderate (4-7) Stop: 12/02/17 18:44 Last Admin: 12/01/17 03:44 Dose: 1 tab Oxycodone/Acetaminophen (Percocet 5/325 Mg Tab) 2 tab PO Q4H PRN PRN Reason: Pain, severe (8-10) Stop: 12/02/17 18:44 Last Admin: 12/01/17 10:40 Dose: 2 tab Tramadol HCl (Ultram) 50 mg PO TID PRN PRN Reason: Pain, severe (8-10) Last Admin: 11/28/17 21:28 Dose: 50 mg - Labs Labs: 12/01/17 07:25 12/01/17 07:25 PT 12.1 SECONDS (9.7-12.2) 11/28/17 08:01 INR 1.1 11/28/17 08:01 APTT 28 SECONDS (21-34) 11/28/17 08:01 - Constitutional Appears: Well, Non-toxic, No Acute Distress - Extremities Exam Additional comments: Posterior splint to b/l LE intact. Clean and dry with no strikethrough. Cap refill time: < 3 sec to all digits; AROM at the MTPJ intact - Neurological Exam Neurological Exam: Alert, Awake, Oriented x3 - Psychiatric Exam Psychiatric exam: Normal Affect, Normal Mood Assessment and Plan - Assessment and Plan (Free Text) Assessment: 52 year old female patient was evaluated for 1) 2 days s/p right ankle ORIF 2) left metatarsal 2-4 fractures with possible Lisfranc's ligament injury Plan: Patient seen and evaluated at the bedside Discussed plan in details with attending Dr. Houser Pre-op X-rays and CT of the bilateral foot and ankle reviewed. CT scan of the bilateral LE reviewed. Imaging demonstrated: 1) left metatarsal 2-4 fractures with possible Lisfranc 's ligament injury 2). Right Posterior malleolus fracture 3) Right medial malleolus fracture 4) possible ankle ligamentous injury Bilateral LE AO posterior splints intact Patient to continue elevating LE bilaterally Remain NWB to b/l LE Podiatry Plans Left foot Lisfranc's ORIF this Wednesday (12/06) @ 7:45 am Podiatry to follow patient while in-house
--- NOTE | 2017-12-01 19:53 | PN ---
DATE: 12/01/2017 SUBJECTIVE: The patient's right foot pain is improved. She denied any chest pain. No reported ventricular arrhythmia. PHYSICAL EXAMINATION: VITAL SIGNS: Blood pressure 104/68, heart rate 109, temperature 98.4, and respirations 20. HEENT: Normocephalic. CHEST: Clear. HEART: S1 and S2 regular. ABDOMEN: Soft EXTREMITIES: One dressing is applied to both lower extremities and feet. LABORATORY DATA: Today's SMA-7, sodium 143, potassium 3.5, chloride 106, CO2 is 27, glucose 134, BUN 8, creatinine 0.6. Today's hemoglobin and hematocrit 11.1 and 32.1, white count 14.9, platelet count 314,000. ASSESSMENT: 1. Status post open reduction and internal fixation of the right ankle fracture and left metatarsal fracture. 2. Bipolar disorder. 3. Hypokalemia. RECOMMENDATIONS: Continue [place] 300 mg t.i.d., Lovenox 40 mg subcutaneously once a day, Neurontin 300 mg t.i.d., Zosyn at 3.375 gm intravenously every 6 hours, and we will administer KCl 20 mEq intravenously as a single dose now. Yesterdays, EKG revealed normal sinus rhythm. Cruz Burch MD
--- NOTE | 2017-12-01 22:31 | CP.PCM.PN ---
Subjective - Date & Time of Evaluation Date of Evaluation: 12/01/17 Time of Evaluation: 17:00 - Subjective Subjective: Pt seen and examined at bedside, Objective - Vital Signs/Intake and Output Vital Signs (last 24 hours): Temp Pulse Resp BP Pulse Ox 98.2 F 89 20 120/85 97 12/01/17 15:08 12/01/17 15:08 12/01/17 15:08 12/01/17 15:08 12/01/17 15:08 Intake and Output: 12/01/17 12/02/17 18:59 06:59 Intake Total 600 Balance 600 - Medications Medications: Current Medications Acetaminophen (Tylenol 325mg Tab) 650 mg PO Q6 PRN PRN Reason: Pain, moderate (4-7) Citalopram Hydrobromide (Celexa) 20 mg PO DAILY [facility] Last Admin: 12/01/17 10:42 Dose: 20 mg Dextrose (Dextrose 50% Inj) 0 ml IV STAT PRN; Protocol PRN Reason: Hypoglycemia Protocol Dextrose (Glutose 15) 0 gm PO ONCE PRN; Protocol PRN Reason: Hypoglycemia Protocol Diphenhydramine HCl (Benadryl) 50 mg PO HS PRN PRN Reason: Insomnia Last Admin: 11/28/17 21:29 Dose: 50 mg Enoxaparin Sodium (Lovenox) 40 mg SC DAILY [facility] Last Admin: 12/01/17 10:41 Dose: 40 mg Gabapentin (Neurontin) 300 mg PO TID [facility] Last Admin: 12/01/17 17:40 Dose: 300 mg Glucagon (Glucagen Diagnostic Kit) 0 mg IM STAT PRN; Protocol PRN Reason: Hypoglycemia Protocol Piperacillin Sod/Tazobactam Sod (Zosyn 3.375 Gm Iv Premix) 3.375 gm in 50 mls @ 100 mls/hr IVPB Q6H [facility] PRN Reason: Protocol Last Admin: 12/01/17 17:00 Dose: 100 mls/hr Ibuprofen (Motrin Tab) 800 mg PO Q8 PRN PRN Reason: Fever >100.4 F Last Admin: 11/26/17 00:38 Dose: 800 mg Insulin Aspart (Novolog) 0 unit SC ACHS [facility] PRN Reason: Protocol Last Admin: 12/01/17 22:21 Dose: Not Given [place] Carbonate ([place] Carbonate 300mg) 300 mg PO TID [facility] Last Admin: 12/01/17 17:40 Dose: 300 mg Nicotine (Nicoderm Cq) 1 patch TD DAILY [facility] Last Admin: 12/01/17 10:41 Dose: 1 patch Oxycodone/Acetaminophen (Percocet 5/325 Mg Tab) 1 tab PO Q4H PRN PRN Reason: Pain, moderate (4-7) Stop: 12/02/17 18:44 Last Admin: 12/01/17 03:44 Dose: 1 tab Oxycodone/Acetaminophen (Percocet 5/325 Mg Tab) 2 tab PO Q4H PRN PRN Reason: Pain, severe (8-10) Stop: 12/02/17 18:44 Last Admin: 12/01/17 10:40 Dose: 2 tab Tramadol HCl (Ultram) 50 mg PO TID PRN PRN Reason: Pain, severe (8-10) Last Admin: 11/28/17 21:28 Dose: 50 mg - Labs Labs: 12/01/17 07:25 12/01/17 07:25 PT 12.1 SECONDS (9.7-12.2) 11/28/17 08:01 INR 1.1 11/28/17 08:01 APTT 28 SECONDS (21-34) 11/28/17 08:01 Assessment and Plan (1) Polysubstance (excluding opioids) dependence Status: Acute (2) Closed right ankle fracture Status: Acute (3) Fever Status: Acute (4) Foot fracture, left Status: Acute (5) Diabetes Status: Chronic
[2017-12-02] MEDS: Piperacill/Tazo 3.375gm in Dex 3.375 GM/50 ML BAG IVPB SCH ×3 (05:05→17:14)
[2017-12-02 07:20] LABS: BASO # 0.2 K/uL (0.0-0.2); EOS # 0.6 K/uL (0.0-0.7); NEUT # 9.5 K/uL (1.8-7.0)
[2017-12-02 07:25] LABS: ALB/GLOB RATIO 1.1 (1.0-2.1); ALT/SGPT 17 U/L (9-52); AST/SGOT 23 U/L (14-36); BLOOD UREA NITROGEN 9 mg/dL (7-17); CALCIUM 10.6 mg/dl (8.6-10.4); GFR AFRICAN-AMERICAN > 60; GFR NON-AFRICAN AMERICAN > 60
[2017-12-02 07:32] LABS: BASO % 1.2 % (0.0-2.0); EOS % 3.9 % (0.0-4.0); HEMOGLOBIN 12.4 g/dL (11.0-16.0); LYMPH # 3.7 K/uL (1.0-4.3); LYMPH % 24.7 % (20.0-40.0); MEAN CELL VOLUME 93.8 fL (81.0-99.0); MEAN CORPUSCULAR HEMOGLOBIN 31.9 pg (27.0-31.0); MEAN PLATELET VOLUME 8.3 fL (7.2-11.7); MONO # 1.1 K/uL (0.0-0.8); MONO % 7.3 % (0.0-10.0); NEUT % 62.9 % (50.0-75.0); NRBC % 0.1 % (0.0-2.0); RBC 3.88 Mil/uL (3.80-5.20); RED CELL DISTRIBUTION WIDTH 13.7 % (11.5-14.5); WHITE BLOOD COUNT 15.2 K/uL (4.8-10.8)
[2017-12-02] MEDS: (Novolog) Insulin Aspart, Recombinant 100 u/ml 10 ml vial SC SCH ×3 (07:55→17:10)
[2017-12-02] MEDS: Enoxaparin 40 mg Syringe SC SCH (10:45)
[2017-12-02] MEDS: Oxycodone/Acetaminophen 5/325 mg Tab PO PRN ×2 (10:45→17:21)
--- NOTE | 2017-12-02 12:23 | CARD ---
APPROVED REPORT Date of service: 11/30/2017 EKG Measurement Heart [id number] <Conclusion> Normal sinus rhythm Normal ECG
--- NOTE | 2017-12-02 15:50 | CP.PCM.PN ---
Subjective - Date & Time of Evaluation Date of Evaluation: 12/02/17 Time of Evaluation: 15:47 - Subjective Subjective: Podiatry Progress note: Dr. Houser 52 year old female patient was seen and evaluated this morning 3 days s/p right ankle ORIF. Patient states that her lower extremity pain is well controlled. Patient denies of any other acute overnight events. Reports that she feels very anxious. She denies any F/N/V/C/SOB/CP/headache. Patient denies any other pedal complains at this time. Objective - Vital Signs/Intake and Output Vital Signs (last 24 hours): Temp Pulse Resp BP Pulse Ox 983 F H 95 H 20 114/73 94 L 12/02/17 07:20 12/02/17 07:20 12/02/17 07:20 12/02/17 07:20 12/02/17 07:20 Intake and Output: 12/02/17 12/02/17 06:59 18:59 Intake Total 300 580 Balance 300 580 - Medications Medications: Current Medications Acetaminophen (Tylenol 325mg Tab) 650 mg PO Q6 PRN PRN Reason: Pain, moderate (4-7) Citalopram Hydrobromide (Celexa) 20 mg PO DAILY [facility] Last Admin: 12/02/17 10:45 Dose: 20 mg Dextrose (Dextrose 50% Inj) 0 ml IV STAT PRN; Protocol PRN Reason: Hypoglycemia Protocol Dextrose (Glutose 15) 0 gm PO ONCE PRN; Protocol PRN Reason: Hypoglycemia Protocol Diphenhydramine HCl (Benadryl) 50 mg PO HS PRN PRN Reason: Insomnia Last Admin: 11/28/17 21:29 Dose: 50 mg Enoxaparin Sodium (Lovenox) 40 mg SC DAILY [facility] Last Admin: 12/02/17 10:45 Dose: 40 mg Gabapentin (Neurontin) 300 mg PO TID [facility] Last Admin: 12/02/17 13:12 Dose: 300 mg Glucagon (Glucagen Diagnostic Kit) 0 mg IM STAT PRN; Protocol PRN Reason: Hypoglycemia Protocol Piperacillin Sod/Tazobactam Sod (Zosyn 3.375 Gm Iv Premix) 3.375 gm in 50 mls @ 100 mls/hr IVPB Q6H [facility] PRN Reason: Protocol Last Admin: 12/02/17 10:54 Dose: 100 mls/hr Ibuprofen (Motrin Tab) 800 mg PO Q8 PRN PRN Reason: Fever >100.4 F Last Admin: 11/26/17 00:38 Dose: 800 mg Insulin Aspart (Novolog) 0 unit SC ACHS [facility] PRN Reason: Protocol Last Admin: 12/02/17 12:53 Dose: Not Given [place] Carbonate ([place] Carbonate 300mg) 300 mg PO TID [facility] Last Admin: 12/02/17 13:12 Dose: 300 mg Nicotine (Nicoderm Cq) 1 patch TD DAILY [facility] Last Admin: 12/02/17 10:45 Dose: 1 patch Oxycodone/Acetaminophen (Percocet 5/325 Mg Tab) 1 tab PO Q4H PRN PRN Reason: Pain, moderate (4-7) Stop: 12/02/17 18:44 Last Admin: 12/01/17 03:44 Dose: 1 tab Oxycodone/Acetaminophen (Percocet 5/325 Mg Tab) 2 tab PO Q4H PRN PRN Reason: Pain, severe (8-10) Stop: 12/02/17 18:44 Last Admin: 12/02/17 10:45 Dose: 2 tab Tramadol HCl (Ultram) 50 mg PO TID PRN PRN Reason: Pain, severe (8-10) Last Admin: 11/28/17 21:28 Dose: 50 mg - Labs Labs: 12/02/17 06:37 12/02/17 06:37 PT 12.1 SECONDS (9.7-12.2) 11/28/17 08:01 INR 1.1 11/28/17 08:01 APTT 28 SECONDS (21-34) 11/28/17 08:01 - Constitutional Appears: Well, Non-toxic, No Acute Distress - Extremities Exam Additional comments: Posterior splint to b/l LE intact. Clean and dry with no strikethrough. Cap refill time: < 3 sec to all digits; AROM at the MTPJ intact - Neurological Exam Neurological Exam: Alert, Awake, Oriented x3 - Psychiatric Exam Psychiatric exam: Normal Affect, Normal Mood Assessment and Plan - Assessment and Plan (Free Text) Assessment: 52 year old female patient was evaluated for 1) 3 days s/p right ankle ORIF 2) left metatarsal 2-4 fractures with possible Lisfranc's ligament injury Plan: Patient seen and evaluated at the bedside Discussed plan in details with attending Dr. Houser Pre-op X-rays and CT of the bilateral foot and ankle reviewed. CT scan of the bilateral LE reviewed. Imaging demonstrated: 1) left metatarsal 2-4 fractures with possible Lisfranc 's ligament injury 2). Right Posterior malleolus fracture 3) Right medial malleolus fracture 4) possible ankle ligamentous injury Bilateral LE AO posterior splints intact Patient to continue elevating LE bilaterally Remain NWB to b/l LE Podiatry Plans Left foot Lisfranc's ORIF this Wednesday (12/06) @ 7:45 am Please keep patient NPO starting 12 am Wednesday night/Wednesday morning Hold anti-coag on the day of the surgery Podiatry to follow patient while in-house
[2017-12-02 16:06] VITALS: BP 130/80; PULSE 93; TEMP 97.8; O2SAT 98
[2017-12-02 16:50] LABS: BASO # 0.1 K/uL (0.0-0.2); BASO % 0.9 % (0.0-2.0); EOS # 0.4 K/uL (0.0-0.7); EOS % 2.9 % (0.0-4.0); HEMOGLOBIN 12.4 g/dL (11.0-16.0); LYMPH # 4.3 K/uL (1.0-4.3); LYMPH % 30.4 % (20.0-40.0); MEAN CELL VOLUME 92.6 fL (81.0-99.0); MEAN CORPUSCULAR HEMOGLOBIN 30.8 pg (27.0-31.0); MEAN CORPUSCULAR HGB CONC 33.3 g/dL (33.0-37.0); MEAN PLATELET VOLUME 7.7 fL (7.2-11.7); MONO % 7.3 % (0.0-10.0); NEUT # 8.4 K/uL (1.8-7.0); NEUT % 58.5 % (50.0-75.0); NRBC % 0.1 % (0.0-2.0); RBC 4.02 Mil/uL (3.80-5.20); RED CELL DISTRIBUTION WIDTH 13.6 % (11.5-14.5); WHITE BLOOD COUNT 14.3 K/uL (4.8-10.8)
[2017-12-02 16:58] LABS: INR 1.2; PROTHROMBIN TIME 13.3 SECONDS (9.7-12.2)
[2017-12-02 17:05] LABS: BLOOD UREA NITROGEN 9 mg/dL (7-17); CALCIUM 10.7 mg/dl (8.6-10.4); GFR AFRICAN-AMERICAN > 60; GFR NON-AFRICAN AMERICAN > 60
--- NOTE | 2017-12-02 17:05 | CP.PCM.PN ---
Subjective - Date & Time of Evaluation Date of Evaluation: 12/02/17 Time of Evaluation: 11:40 - Subjective Subjective: Patient seen today, denies any chest pain, sob, abdominal pain , c/o B/L le pain improved with pain medications c/o anxiety - Dr. Ortiz called to see patient a febrile Objective - Vital Signs/Intake and Output Vital Signs (last 24 hours): Temp Pulse Resp BP Pulse Ox 97.8 F 93 H 20 130/80 98 12/02/17 15:52 12/02/17 15:52 12/02/17 15:52 12/02/17 15:52 12/02/17 15:52 Intake and Output: 12/02/17 12/02/17 06:59 18:59 Intake Total 300 1180 Output Total 600 Balance 300 580 - Medications Medications: Current Medications Acetaminophen (Tylenol 325mg Tab) 650 mg PO Q6 PRN PRN Reason: Pain, moderate (4-7) Citalopram Hydrobromide (Celexa) 20 mg PO DAILY [facility] Last Admin: 12/02/17 10:45 Dose: 20 mg Dextrose (Dextrose 50% Inj) 0 ml IV STAT PRN; Protocol PRN Reason: Hypoglycemia Protocol Dextrose (Glutose 15) 0 gm PO ONCE PRN; Protocol PRN Reason: Hypoglycemia Protocol Diphenhydramine HCl (Benadryl) 50 mg PO HS PRN PRN Reason: Insomnia Last Admin: 11/28/17 21:29 Dose: 50 mg Enoxaparin Sodium (Lovenox) 40 mg SC DAILY [facility] Last Admin: 12/02/17 10:45 Dose: 40 mg Gabapentin (Neurontin) 300 mg PO TID [facility] Last Admin: 12/02/17 13:12 Dose: 300 mg Glucagon (Glucagen Diagnostic Kit) 0 mg IM STAT PRN; Protocol PRN Reason: Hypoglycemia Protocol Piperacillin Sod/Tazobactam Sod (Zosyn 3.375 Gm Iv Premix) 3.375 gm in 50 mls @ 100 mls/hr IVPB Q6H [facility] PRN Reason: Protocol Last Admin: 12/02/17 10:54 Dose: 100 mls/hr Ibuprofen (Motrin Tab) 800 mg PO Q8 PRN PRN Reason: Fever >100.4 F Last Admin: 11/26/17 00:38 Dose: 800 mg Insulin Aspart (Novolog) 0 unit SC ACHS [facility] PRN Reason: Protocol Last Admin: 12/02/17 12:53 Dose: Not Given [place] Carbonate ([place] Carbonate 300mg) 300 mg PO TID [facility] Last Admin: 12/02/17 13:12 Dose: 300 mg Nicotine (Nicoderm Cq) 1 patch TD DAILY [facility] Last Admin: 12/02/17 10:45 Dose: 1 patch Oxycodone/Acetaminophen (Percocet 5/325 Mg Tab) 1 tab PO Q4H PRN PRN Reason: Pain, moderate (4-7) Stop: 12/02/17 18:44 Last Admin: 12/01/17 03:44 Dose: 1 tab Oxycodone/Acetaminophen (Percocet 5/325 Mg Tab) 2 tab PO Q4H PRN PRN Reason: Pain, severe (8-10) Stop: 12/02/17 18:44 Last Admin: 12/02/17 10:45 Dose: 2 tab Tramadol HCl (Ultram) 50 mg PO TID PRN PRN Reason: Pain, severe (8-10) Last Admin: 11/28/17 21:28 Dose: 50 mg - Labs Labs: 12/02/17 16:45 12/02/17 06:37 PT 13.3 SECONDS (9.7-12.2) H 12/02/17 16:45 INR 1.2 12/02/17 16:45 APTT 28 SECONDS (21-34) 12/02/17 16:45 Assessment and Plan - Assessment and Plan (Free Text) Assessment: A/P 52 y/o female with hx of opioid abuse, and bipolar disorder presented to ER for multiple falls in the last few days. x-ray of B/L foot- left metatarsal 2-4 fractures with possible Lisfranc's ligament injury . Right Posterior malleolus fracture Right medial malleolus fracture Dr. Houser podiatry consulted s/p right ankle ORIF. POD #3 and plan for Left foot surgery on Wednesday Patient accepted to [facility] post acute rehab D/W Podiatry , ok [facility] and bring patient back on surgery Wednesday at 745 am D/W Dr. Peterson, cleared for discharge to [facility] acute care today As per JOVANA de la o , [facility] All instructions including NPO post Wednesday and anticoagulation to be held day of sugery to [facility]
--- NOTE | 2017-12-02 21:07 | PN ---
DATE: 12/02/2017 SUBJECTIVE: The patient denies any chest pain or shortness of breath. PHYSICAL EXAMINATION VITAL SIGNS: Blood pressure 114/73, heart rate 95, temperature 98.3, respirations 20. HEENT: Normocephalic. CHEST: Clear. HEART: S1 and S2, regular. ABDOMEN: Soft. EXTREMITIES: Dressings applied to both legs. LABORATORY DATA: Today's hemoglobin and hematocrit 12.4 and 36.4, white count 15.2, platelet count 386,000. Today's SMA-7 is within normal limit except for glucose of 116 and creatinine 0.6; calcium is elevated at 10.6, however, it was in the normal range before. ASSESSMENT: 1. Status post multiple falls with bimalleolar right fracture and left foot metatarsal fracture, status post open reduction and internal fixation of the malleolar fracture. 2. Bipolar disorder. 3. Diabetes mellitus. RECOMMENDATIONS: Continue [place] 300 mg twice a day, Lovenox 40 mg subcutaneously once a day, Neurontin 300 mg t.i.d., Zosyn 3.375 gm intravenously every 6 hours. The patient can undergo her left foot metatarsal fracture surgery from the cardiac point of view with postoperative telemetry monitoring. NOTE: The statement on my progress note yesterday about the fact that the patient underwent right bimalleolar open reduction internal fixation as well as left metatarsal fracture open reduction internal fixation was incorrect, but it was based on what was mentioned as surgery operative report that was incorporated into [employer] database. Cruz Burch MD
--- NOTE | 2017-12-03 07:10 | CP.PCM.DIS ---
Provider - Provider Date of Admission: 11/25/17 12:36 Attending physician: Eduard Peterson MD Time Spent in preparation of Discharge (in minutes): 45 Diagnosis - Discharge Diagnosis (1) Polysubstance (excluding opioids) dependence Status: Acute (2) Closed right ankle fracture Status: Acute (3) Fever Status: Acute (4) Foot fracture, left Status: Acute (5) Diabetes Status: Chronic Hospital Course - Lab Results Lab Results: Micro Results 11/25/17 13:45 Blood-Venous Blood Culture - Final NO GROWTH AFTER 5 DAYS 11/25/17 13:45 Blood-Venous Gram Stain - Final TEST NOT PERFORMED 11/25/17 12:50 Blood-Venous Blood Culture - Final NO GROWTH AFTER 5 DAYS 11/25/17 12:50 Blood-Venous Gram Stain - Final TEST NOT PERFORMED 11/25/17 12:46 Urine,Catheterized Urine Culture - Final Escherichia Coli Most Recent Lab Values WBC 14.3 K/uL (4.8-10.8) H 12/02/17 16:45 RBC 4.02 Mil/uL (3.80-5.20) 12/02/17 16:45 Hgb 12.4 g/dL (11.0-16.0) 12/02/17 16:45 Hct 37.2 % (34.0-47.0) 12/02/17 16:45 MCV 92.6 fL (81.0-99.0) 12/02/17 16:45 MCH 30.8 pg (27.0-31.0) 12/02/17 16:45 MCHC 33.3 g/dL (33.0-37.0) 12/02/17 16:45 RDW 13.6 % (11.5-14.5) 12/02/17 16:45 Plt Count 375 K/uL (130-400) 12/02/17 16:45 MPV 7.7 fL (7.2-11.7) 12/02/17 16:45 Neut % (Auto) 58.5 % (50.0-75.0) 12/02/17 16:45 Lymph % (Auto) 30.4 % (20.0-40.0) 12/02/17 16:45 [place] % (Auto) 7.3 % (0.0-10.0) 12/02/17 16:45 Eos % (Auto) 2.9 % (0.0-4.0) 12/02/17 16:45 Baso % (Auto) 0.9 % (0.0-2.0) 12/02/17 16:45 Neut # (Auto) 8.4 K/uL (1.8-7.0) H 12/02/17 16:45 Lymph # (Auto) 4.3 K/uL (1.0-4.3) 12/02/17 16:45 [place] # (Auto) 1.0 K/uL (0.0-0.8) H 12/02/17 16:45 Eos # (Auto) 0.4 K/uL (0.0-0.7) 12/02/17 16:45 Baso # (Auto) 0.1 K/uL (0.0-0.2) 12/02/17 16:45 PT 13.3 SECONDS (9.7-12.2) H 12/02/17 16:45 INR 1.2 12/02/17 16:45 APTT 28 SECONDS (21-34) 12/02/17 16:45 D-Dimer, Quantitative 783 ng/mlDDU (0-243) H 11/26/17 16:31 Sodium 143 mmol/L (132-148) 12/02/17 16:45 Potassium 3.8 mmol/L (3.6-5.2) 12/02/17 16:45 Chloride 106 mmol/L (98-107) 12/02/17 16:45 Carbon Dioxide 28 mmol/L (22-30) 12/02/17 16:45 Anion Gap 13 (10-20) 12/02/17 16:45 BUN 9 mg/dL (7-17) 12/02/17 16:45 Creatinine 0.6 mg/dL (0.7-1.2) L 12/02/17 16:45 Est GFR ( Amer) > 60 12/02/17 16:45 Est GFR (Non-Af Amer) > 60 12/02/17 16:45 POC Glucose (mg/dL) 99 mg/dL (65-110) 12/02/17 16:45 Random Glucose 100 mg/dL (65-105) 12/02/17 16:45 Hemoglobin A1c 5.4 % (4.2-6.5) 11/26/17 06:52 Calcium 10.7 mg/dl (8.6-10.4) H 12/02/17 16:45 Total Bilirubin 0.8 mg/dL (0.2-1.3) 12/02/17 06:37 AST 23 U/L (14-36) 12/02/17 06:37 ALT 17 U/L (9-52) 12/02/17 06:37 Alkaline Phosphatase 58 U/L (38-126) 12/02/17 06:37 Total Creatine Kinase 307 U/L (30-135) H 11/25/17 11:34 Total Protein 7.7 g/dL (6.3-8.3) 12/02/17 06:37 Albumin 4.0 g/dL (3.5-5.0) 12/02/17 06:37 Globulin 3.6 gm/dL (2.2-3.9) 12/02/17 06:37 Albumin/Globulin Ratio 1.1 (1.0-2.1) 12/02/17 06:37 Urine Color [place] (YELLOW) 11/25/17 12:46 Urine Clarity Hazy (Clear) 11/25/17 12:46 Urine pH 7.0 (5.0-8.0) 11/25/17 12:46 Ur Specific [place] 1.019 (1.003-1.030) 11/25/17 12:46 Urine Protein Negative mg/dL (NEGATIVE) 11/25/17 12:46 Urine Glucose (UA) Normal mg/dL (Normal) 11/25/17 12:46 Urine Ketones Negative mg/dL (NEGATIVE) 11/25/17 12:46 Urine Blood Negative (NEGATIVE) 11/25/17 12:46 Urine Nitrate Negative (NEGATIVE) 11/25/17 12:46 Urine Bilirubin Negative (NEGATIVE) 11/25/17 12:46 Urine Urobilinogen 2.0 mg/dL (0.2-1.0) H 11/25/17 12:46 Ur Leukocyte Esterase 2+ [place]/uL (Negative) H 11/25/17 12:46 Urine WBC (Auto) 43 /hpf (0-5) H 11/25/17 12:46 Urine RBC (Auto) 4 /hpf (0-3) H 11/25/17 12:46 Ur Squamous Epith Cells 1 /hpf (0-5) 11/25/17 12:46 Urine Bacteria Many (<OCC) H 11/25/17 12:46 Urine HCG, Qual Negative (NEGATIVE) 11/29/17 07:18 Urine Opiates Screen Negative (NEGATIVE) 11/26/17 14:07 Urine Methadone Screen Negative (NEGATIVE) 11/26/17 14:07 Acetaminophen < 10.0 ug/mL (10.0-30.0) L 11/25/17 13:03 Ur Barbiturates Screen Negative (NEGATIVE) 11/26/17 14:07 Ur Phencyclidine Scrn Negative (NEGATIVE) 11/26/17 14:07 Ur Amphetamines Screen Negative (NEGATIVE) 11/26/17 14:07 U Benzodiazepines Scrn Negative (NEGATIVE) 11/26/17 14:07 [place] 0.3 mmol/L (0.6-1.2) L 11/25/17 19:52 U Oth Cocaine Metabols Negative (NEGATIVE) 11/26/17 14:07 U Cannabinoids Screen Negative (NEGATIVE) 11/26/17 14:07 - Hospital Course Hospital Course: Pt is seen and examined, is stable for discharge today, advised to follow up in 1 week out patient Discharge Exam - Head Exam Head Exam: ATRAUMATIC, NORMAL INSPECTION, NORMOCEPHALIC Discharge Plan - Follow Up Plan Condition: STABLE Disposition: HOME/ ROUTINE Instructions: Ankle Fracture (DC), Stress Fracture of the Metatarsal Bone (DC) , Open Reduction and Internal Fixation Surgery (DC), Managing Pain After Surgery Additional Instructions: PLEASE SENT PATIENT TO [facility] ON WEDNESDAY AT 6 AM FOR SURGERY ( LEFT FOOT ORIF) PLEASE KEEP PT NPO POST MIDNIGHT ON WEDNESDAY PLEASE DO NOT GIVE LOVENOX ON WEDNESDAY - LAST DOSE WEDNESDAY MORNING NWB B/L LE CONTINUE MEDICATION PER MED. REC. PLEASE CALL A PSYCHIATRIST TO SEE PT WHILE IN THE FACILITY (HX OF BIPOLAR) Referrals: Eduard Peterson MD [Staff Provider] - Jeannine Houser DPM [Staff Provider] -
--- NOTE | 2017-12-03 07:51 | PCM.PYCHPN ---
Psychiatric Progress Note - Psychiatric Progress Note Patient Chief Complaint: "I went manic" Mental Status Examination - Cognitive Function Orientation: Person, Place, Situation, Time Memory: Intact Attention: WNL Concentration: Poor Association: WNL Fund of Knowledge: Poor - Mood Mood: Anxious - Affect Affect: Constricted - Speech Speech: Soft - Formal Thought Process Formal Thought Process: No Impairment - Suicidal Ideation Suicidal Ideation: No - Homicidal Ideation Homicidal Ideation: No Goal/Treatment Plan - Goal/Treatment Plan Need for Continued Stay: Severe depression anxiety, Severe functional impairment - Smoking Cessation Smoking Cessation Initiated: No
--- NOTE | 2017-12-05 21:03 | PCM.OP ---
Operative Report - Operative Report Date of Surgery/Procedure: 11/29/17 Time of Surgery/Procedure: 18:40 Surgeon: Dr. Houser Interventional Cardiologist: Fe Olivera PGY3, David Cardoza PGY2, Mandeep Rinaldi PGY2 Anesthesia/Sedation: General LMA Pre-Operative Diagnosis: Pre-Operative Diagnoses: 1)Right ankle displaced medial malleolar and posterior malleolar fracture. 2)Right ankle syndesmotic rupture Post-Operative Diagnosis: same Indication for Surgery: Indications: The patient is a 52 year-old male with the above diagnoses. The patient signed the consent after careful explanation of risks, benefits, complication and alternatives for surgical procedure. No guarantees were given nor implied. 1 gram of ancef IV was given to the pt hour prior to the procedure. NPO status was confirmed prior to taking pt to the OR. Operative Findings: Preparation: The patient was brought to the operating room and placed on the operating room table in supine position. A well-padded pneumatic thigh tourniquet was placed to the patient's Right lower extremity. After induction of general anesthesia, the Right lower extremity was then prepped and draped in usual sterile manner. Esmarch was utilized to exsanguinate the patient's Right foot. Pneumatic thigh tourniquet was then inflated to 350 mmHg and procedure began. Procedure/Operation Description: PROCEDURE #1: Right ankle open reduction and internal fixation. Attention was directed to the medial aspect of the distal tibia of the right lower extremity. Utilizing #15 blade an approximately 6 cm linear longitudinal incision was made overlying the tibia staying central over the bone. At this time, the incision was carried deep using sharp and blunt dissection, taking care to retract all vital neurovascular structures. All bleeders were cauterized and ligated as necessary. At the level of the periosteum, a sharp periosteal incision was made overlying the distal tibia to allow exposure of the fracture site. The periosteum was reflected with a sharp periosteal elevator. At this time, a Synthes 3.5 LCP hook plate was utilized to grab the distal fracture fragment of medial malleolus, reducing the fracture site and brining the distal medial malleolus back to proper anatomical alignment. The distal end of hook plate was tampered into the distal fragment of the medial malleolus with a mallet in order to securely grab the fracture fragment. Next, based on AO technique and principles, the hook plate site was fixed with two 3.5 mm cancellous screws. The proper screw locations and excellent anatomical reduction were confirmed under direct visualization and intraoperative fluoroscopy. The surgical site was irrigated with copious amount of normal sterile saline. Next, under intraoperatice Xray, the location of posterior malleolar fracture fragment was confirmed. Next, a small stab incision was made to the anterior aspect of right leg, slightly proximal to the ankle joint. Utilizing a k-wire and intraoperative Xray, proper position of the screw fixation for posterior malleolar fracture fragment was determined. Next, following AO technique and principles, one 4.5mm cannulated partially threaded screw was placed from anterior to posterior direction. The proper screw locations and excellent anatomical reduction were confirmed under intraoperative fluoroscopy. Next, under intra-operative fluoroscopy, inversion stress test of right ankle was performed which revealed diastasis of the tibia fibular space, indicating ruptured syndesmotic ligament. PROCEDURE #2: Right ankle syndesmotic repair utilizing Ar[employer]rex Tightrope. Next, utilizing intraoperative fluoroscopy, the guidewire from the [employer] TightRope System was passed through the medial aspect of the tibia through a hole of the hook plate, and through all the cortices of the tibia and fibula, exiting the lateral aspect of the patients right ankle. Proper positioning of the guidewire was verified utilizing intraoperative fluoroscopy. Next, the cannulated drill bit from the Ar[employer]rex Tightrope system was placed over the guidewire and all the cortices of the tibia and fibula were drilled. The drill bit and guidewire were then removed from the surgical field. . Next, the needle from the Tightrope system was passed through the lateral and medial cortices of the fibula and through the lateral and medial cortices of the tibia and exited out the medial aspect of the patients right ankle. The needle was then cut free from the suture and the medial and lateral buttons of the Arthrex Tightrope system were then manipulated utilizing the sutures to sit flush against the medial aspect of the tibial cortex and the lateral aspect of the fibula. Proper position of the buttons was verified utilizing intraoperative fluoroscopy. The extra sutures were then cut and removed from the surgical field. Proper positioning of all hardware were confirmed with intra-operative Xray. Inversion stress test of the ankle was performed under intraoperative fluoroscopy to confirm excellent repairmen of the syndesmotic ankle ligament. The surgical site was irrigated with copious amount of normal sterile saline. Deep soft tissues of right ankle were reapproximated with #2-0, #3-0 and #4-0 Vicryl and Skin was reapproximated with #4-0 Prolene in horizontal mattress suture technique. Medial aspect of the right ankle was infiltrated with 10ml of 0.5% Marcaine plain for saphenous nerve block. Right lower extremity was dressed with Betadine soaked adaptic, 4x4, Kerlix and posterior splint. The attending was present during the entire case. Estimated Blood Loss: less than 5 mL Complications: None Discharge & Condition: Postoperative Condition: The patient tolerated the anesthesia and procedure well and was escorted to the recovery room with vital signs stable and neurovascular status intact to the Right foot. The patient received regional popliteal block by the anesthesiologist after the case. This patient will follow up with Dr. Houser.
== END 2017-12-02 20:30 | disposition home or self-care (01) | DRG 493 ==
LOC: C.ER 07:06 → C.9E 12:36 → C.6T 13:14
PROVIDERS: ADMIT Internal Medicine; ATTEND Internal Medicine
PROC: 0QSG0ZZ Reposition Right Tibia, Open Approach (ICD-10-PCS; 2017-11-29)
PROC: 0QSG04Z Reposition Right Tibia with Internal Fixation Device, Open Approach (ICD-10-PCS; principal; 2017-11-29 13:15)
DX: S82.851A Displaced trimalleolar fracture of right lower leg, initial encounter for closed fracture (principal); N39.0 Urinary tract infection, site not specified; L03.116 Cellulitis of left lower limb; L03.115 Cellulitis of right lower limb; S92.322A Displaced fracture of second metatarsal bone, left foot, initial encounter for closed fracture; S92.332A Displaced fracture of third metatarsal bone, left foot, initial encounter for closed fracture; S92.342A Displaced fracture of fourth metatarsal bone, left foot, initial encounter for closed fracture; R29.6 Repeated falls; N18.9 Chronic kidney disease, unspecified; W19.XXXA Unspecified fall, initial encounter; I51.7 Cardiomegaly; I12.9 Hypertensive chronic kidney disease with stage 1 through stage 4 chronic kidney disease, or unspecified chronic kidney disease; F31.9 Bipolar disorder, unspecified; F41.9 Anxiety disorder, unspecified; E87.6 Hypokalemia; E86.0 Dehydration; F17.200 Nicotine dependence, unspecified, uncomplicated; F14.10 Cocaine abuse, uncomplicated; E11.65 Type 2 diabetes mellitus with hyperglycemia; E11.22 Type 2 diabetes mellitus with diabetic chronic kidney disease; S02.2XXA Fracture of nasal bones, initial encounter for closed fracture; B96.20 Unspecified Escherichia coli [E. coli] as the cause of diseases classified elsewhere; Z79.4 Long term (current) use of insulin

== ENCOUNTER 2017-12-06 06:13 | Day surgery (SDC) | payer MEDICARE, OTHER ==
[2017-12-06] MEDS ORDERED: Propofol 10 mg/ml Inj (20 ML) ONE (07:38)
[2017-12-06] MEDS ORDERED: Midazolam 2 MG/2 ML VIAL ONE (07:38)
[2017-12-06] MEDS ORDERED: Lidocaine 4% (Laryng-O-Jet) Kit MM ONE (07:56)
[2017-12-06] MEDS ORDERED: ceFAZolin IV 2 gm in Dextrose 2 GM/50 ML BAG IVPB ONE (08:01)
[2017-12-06] MEDS ORDERED: Bupivacaine HCl 0.5% PF (30 ml) Inj ONE (08:01)
[2017-12-06] MEDS ORDERED: Rocuronium 10 mg/ml (5 ml) ONE (08:10)
[2017-12-06] MEDS ORDERED: ePHEDrine 50 mg/ml Inj ONE (08:42)
[2017-12-06] MEDS ORDERED: Neostigmine Methylsulfate 3mg/3ml Syringe IV ONE (10:20)
[2017-12-06] MEDS ORDERED: Oxycodone/Acetaminophen 5/325 mg Tab PO PRN ×2 (11:15)
--- NOTE | 2017-12-06 11:24 | PCM.SURG1 ---
Surgeon's Initial Post Op Note - Surgeon's Notes Surgeon: Dr. Jeannine Houser, DPM Model And Mold Maker Plaster: Dr. Mandeep Hazel, PGY-3, Fe Olivera, PGY-3, Mandeep Rinaldi, PGY-2 Type of Anesthesia: General LMA Anesthesia Administered By: Dr. Kole MD Pre-Operative Diagnosis: Left foot 1) Lisfranc joint dislocation 2) 2nd metatarsal base intra-articular fracture Operative Findings: See dictation: M: Synthes- 7 hole midfoot plate, 3.5 x 44mm cannulated partially threated screw, 2.4 x 12mm cortical screw, 2.4 x 16mm cortical screw, 2.4 x 24mm cortical screw, 2.4 x 30mm cortical screw; 3-0 vicryl , 4-0 Vicryl, 4.0 Nylon. I: 1cc DBM, 27mL 0.5% marcaine plain Post-Operative Diagnosis: Same as pre-operative Operation Performed: 1) Left foot Lisfranc open reduction with internal fixation 2) Left 2nd metatarsal open reduction with internal fixation Specimen/Specimens Removed: none Estimated Blood Loss: EBL {In ML}: 20 Blood Products Given: N/A Drains Used: No Drains Date of Surgery/Procedure: 12/06/17 Time of Surgery/Procedure: 11:20
[2017-12-06] MEDS: HYDROmorphone 0.5 mg/0.5 ml ISec IVP PRN ×2 (11:30→11:45)
--- NOTE | 2017-12-06 12:42 | RAD ---
Date of service: 12/06/2017 PROCEDURE: Left Foot Radiographs. HISTORY: s/p left foot surgery COMPARISON: 11/25/2017 FINDINGS: BONES: Status post ORIF fracture base of 2nd metatarsal. Orthopedic fixation is seen across the TMT to articulation. No new fracture. JOINTS: Normal. SOFT TISSUES: Normal. OTHER FINDINGS: None. IMPRESSION: ORIF 2nd metatarsal base fracture.
--- NOTE | 2017-12-06 12:56 | RAD ---
Date of service: 12/06/2017 PROCEDURE: Right Ankle Radiographs. HISTORY: s/p right nakle surgery COMPARISON: 11/29/2017 FINDINGS: BONES: Status post ORIF medial malleolar fracture. Status post ORIF posterior malleolar fracture. Please note that bony detail is obscured by overlying fiberglass cast material. Fracture fragments are in near anatomic alignment. No fibular fracture identified. JOINTS: Normal. No osteoarthritis. Ankle mortise maintained. Talar dome intact SOFT TISSUES: Normal. OTHER FINDINGS: None. IMPRESSION: Status post ORIF medial and posterior malleolar fractures.
[2017-12-06] MEDS ORDERED: Bupivacaine 0.25% 20 ML INJ IJ ONE (13:30)
--- NOTE | 2017-12-06 13:48 | PCM.ANESB2 ---
<Benji Kelly - Last Filed: 12/06/17 13:47> Popliteal Nerve Block - Procedure Popliteal Nerve Block: This procedure was explained to the patient that it is for post-operative pain management. Consent was obtained after a thorough discussion with the patient regarding the benefits and possible complications of local anesthetic block of the sciatic nerve at the popliteal level. The patient was brought to the operating room and standard monitors are applied. Time-out was held with the circulating nurse to confirm the correct surgery and the appropriate block. After applying oxygen by nasal cannula and administering IV Sedation, patient's operative leg was gently raised and supported and the groove in between the biceps femoris and vastus lateralis muscles was carefully palpated. The skin approximately 8cm above the popliteal crease was then marked. The ultrasound transducer was then applied to the posterior thigh approximately 8cm above the popliteal crease in the transverse plane and the sciatic nerve before its division was visualized lateral to the popliteal artery and in between the bicep femoris and semimembranosus/semitendinosus muscles. After identification, the lateral portion of the thigh was prepped with Betadine solution three times and Lidocaine 1% was injected subcutaneously for topical anesthesia. At this point, a # 21 gauge Stimuplex insulated 4 inch needle was inserted into pre-marked area and advanced in a perpendicular direction. The needle was inserted above the ultrasound transducer in-plane towards the sciatic nerve in a [id number] direction. Needle advancement was performed carefully under direct ultrasound visualization. Nerve stimulator was used and dorsiflexion of the foot was elicited at a current of MA. After repeated negative aspiration, cc of % was injected and this was flowed with cc of % . Under ultrasound guidance the local anesthetics were observed surrounding sciatic nerve . The needle was removed intact and sterile dressing was applied. The patient tolerated the popliteal nerve block well with stable vital signs and was subsequently prepared for the surgery. <aPblo Sharif - Last Filed: 12/06/17 15:20> Popliteal Nerve Block - Popliteal Nerve Block Date of Procedure: 12/06/17 Anesthesiologist: Pablo Sharif Pre-Procedure Diagnosis: acute postoperative pain Post-Procedure Diagnosis: acute postoperative pain Procedure Performed: Popliteal Nerve Block Left - Procedure Popliteal Nerve Block: This procedure was explained to the patient that it is for post-operative pain management. Consent was obtained after a thorough discussion with the patient regarding the benefits and possible complications of local anesthetic block of the sciatic nerve at the popliteal level. The patient was brought to the operating room and standard monitors are applied. Time-out was held with the circulating nurse to confirm the correct surgery and the appropriate block. After applying oxygen by nasal cannula and administering IV Sedation, patient's operative leg was gently raised and supported and the groove in between the biceps femoris and vastus lateralis muscles was carefully palpated. The skin approximately 8cm above the popliteal crease was then marked. The ultrasound transducer was then applied to the posterior thigh approximately 8cm above the popliteal crease in the transverse plane and the sciatic nerve before its division was visualized lateral to the popliteal artery and in between the bicep femoris and semimembranosus/semitendinosus muscles. After identification, the lateral portion of the thigh was prepped with Betadine solution three times and Lidocaine 1% was injected subcutaneously for topical anesthesia. At this point, a # 21 gauge Stimuplex insulated 4 inch needle was inserted into pre-marked area and advanced in a perpendicular direction. The needle was inserted above the ultrasound transducer in-plane towards the sciatic nerve in a [id number] direction. Needle advancement was performed carefully under direct ultrasound visualization. . After repeated negative aspiration, ___5__cc of __0.25_ % bupivicaine was injected and this was flowed with 15___ cc of 0.25 _ % bupivicaine. Under ultrasound guidance the local anesthetics were observed surrounding sciatic nerve . The needle was removed intact and sterile dressing was applied. The patient tolerated the popliteal nerve block well with stable vital signs, no complaints or paresthesias/pain.
[2017-12-06 14:38] VITALS: BP 125/74; PULSE 66; RESP 18; TEMP 97; O2SAT 97
--- NOTE | 2017-12-06 18:00 | RAD ---
Date of service: 12/06/2017 PROCEDURE: Intraoperative Fluoroscopy. HISTORY: LT. 2ND METATARSAL FX. FINDINGS: Fluoroscopic assistance was provided for open reduction internal fixation. Please refer to the operative report from JJ Bolanos. Dose report: 0.02 (mGy-cm)
--- NOTE | 2017-12-10 07:42 | OP ---
PROCEDURE DATE: 12/06/2017 PRIMARY SURGEON: Jeannine Houser DPM ASSISTANTS: Lynda Hazel DPM, PGY-3; Dr. Brunilda Olivera, PGY-3; Xenia Rinaldi, PGY-2 ANESTHESIOLOGIST: Dr. Sharif. ANESTHESIA TYPE: General LMA. PREOPERATIVE DIAGNOSES: 1. Left foot Lisfranc joint dislocation. 2. Left foot second metatarsal base, closed intraarticular fracture. POSTOPERATIVE DIAGNOSES: 1. Left foot Lisfranc joint dislocation. 2. Left foot second metatarsal base, closed intraarticular fracture. PROCEDURES: 1. Left foot Lisfranc open reduction with internal fixation. 2. Left foot second metatarsal open reduction with internal fixation. 3. Fluoroscopy INDICATIONS: The patient is a 52-year-old female with the above-stated diagnoses. The patient has exhausted all conservative treatment options and is now in need of surgical intervention. At this time, the patient has signed surgical consent after careful explanation of risks, benefits, complications and potential alternatives with both surgical procedures. No guarantees were either given nor implied. All patient's questions were answered to her satisfaction. PREPARATION: The patient's n.p.o. status was confirmed prior to bringing the patient to the operating room. The patient was brought to the operating room and placed on the operating room table in supine position. Once general anesthesia was initiated, the patient received a well-padded pneumatic tourniquet at the level of the left mid thigh which was set at 350 mmHg to be inflated once the procedure began. DESCRIPTION OF PROCEDURE: Once the patient was appropriately positioned, the patient's left lower extremity was then prepped and draped in the usual manner. Foot was exsanguinated. Tourniquet was inflated, and the procedure began. Procedure #1: Left foot Lisfranc with open reduction with internal fixation. & Procedure #2: Left foot second metatarsal open reduction with internal fixation. Attention was then directed to the dorsal aspect of the patient's left foot. Intraoperative fluoroscopy was introduced, and fluoroscopic guidance and triangulation was utilized to triangulate Lisfranc joints and displaced fracture of second metatarsal base. At the intersection of the first and second metatarsal space overlying predominantly the second metatarsal base, an approximately 4 cm of longitudinal incision was made using #15 blade. This incision was extended down to the subcutaneous tissue with care being taken to identify, avoid and retract all vital neurovascular structures. All bleeders were cauterized and ligated as encountered. Combination of blunt and sharp dissection was extended down through deep crural fascial layers. Care was taken to avoid neurovascular structures. Dorsalis pedis artery was not encountered at this level. Upon incision of the deep fascia overlying the second metatarsal, a linear longitudinal incision, approximately 3 cm in length, was initiated overlying the second metatarsal and extending to the proximal one-third of the second metatarsal base, noted at this time at layer defined at periosteum. First perforating intermetatarsal artery was encountered and iatrogenically incised due to hemostasis achieved by pneumatic tourniquet. There was well-controlled hemostasis with no evident blood flow through this vessel. Lumen vessel was fully visualized, and frayed ends were encountered. It was noted that at this time that intraoperatively upon reduction and repair, arterial ends were needed to be reapproximated at a later point after anatomical reduction of osseous components was achieved. At this time, stay sutures were placed in the lumen to tag them for future reapproximation. At this time, extensor digitorum longus and brevis tendons were reflected laterally to allow for visualization of second metatarsal base with extensor hallucis brevis tendon retracted medially to visualize medial cuneiform at second metatarsal base articulation. It was noted at this time there was an avulsed fracture of the second metatarsal base with dorsal Lisfranc was evaluated, and the integrity was found to be 100% with no partial tearing and fully viable. Avulsed fracture component basically was well adhered and would serve as cornerstone fragment to reapproximate dorsally and laterally displaced second metatarsal base and shaft. Using manual manipulation, second metatarsal distal fragment was re-approximated and held with reduction clamp. It was noted at this time, retrograde screw from second metatarsal diaphysis seems to be retrograded in line with the Lisfranc ligament to recreate anatomical structure of Lisfranc ligamentous complex. With reduction maintained, a 1.25 mm K-wire was retrograded from distal lateral surface of the second metatarsal diaphysis along the axis of Lisfranc ligament stimulating proximal and medial through the medial cuneiform. Fluoroscopic guidance was introduced, and positioning was found to be adequate. At this time, a 2.7 mm drill bit was introduced, and linear cortex was drilled, and then, 3.5 x 44 mm cannulated, partially threaded screw was introduced along access K-wire. Compression of proximal segment of metatarsal base was achieved, and foot reduction of Lisfranc component of the fracture was achieved at this time. Access K-wire was left in place. Fluoroscopy was guided to evaluate overall position of thread screw and was found to be adequate. At this time, intraoperative incision was made and was noted that first metatarsal base fracture component required surgical fixation of the Lisfranc component. Procedure was complete. Risks, procedures, and techniques were assessed to be ideal position as there was severe comminution at second metatarsal base level. At this time, a Synthes 7-hole 2.4 mm plate was introduced, and on fluoroscopic guidance, was temporarily tacked in place to gauge correct and comfortable length. Partial suture was made overlying intermediate cuneiform to allow subperiosteal fixation of plate onto intermediate cuneiform to allow adequate brisk bleeding. At this time under fluoroscopic guidance, it was noted that proximal to distal two screw holes would allow adequate brisk bleeding facilitation without interrupting communitive fracture components. Surgical site was then flushed with copious amounts of sterile saline. At this time, intraoperative incision was made in a step-perales fashion from distal to proximal Synthes 2.4 mm screws were utilized with distal hole accommodating a 12 mm screw, second most distal hole receiving a 60 mm screw. Second most proximal hole receiving a 24 mm screw and most proximal hole receiving a 30 mm screw. Fluoroscopy was reintroduced, and anatomical position of the plate was found adequate well adhered to the dorsal cortex of the second metatarsal and intermediate cuneiform, following appropriate metatarsal desquamation with adequate compression and positioning of second metatarsal along long access of the foot. Surgical site was then flushed with copious amounts of sterile saline. It should be noted that from previous CT results, third and fourth metatarsal base fractures were inferior base type fractures which will not be able to be reduced with fixation as fracture pieces were too small and on the plantar surface of the bone. Surgical site was then flushed with copious amount of sterile saline. At this time, attention was readdressed to lacerated first perforating metatarsal artery. A 5-0 Prolene was introduced, and an attempt was made to reapproximate ends of lacerated tendon. All integrated lumen was partially compromised as suture continuously pulled through to avoid poorly oproximated retubularizattion and as perforated artery was not major vascular supply artery to the foot, an intraoperative decision was made to ligate in the vessels and seal ends with electrocautery. Surgical site was then flushed with copious amounts of sterile saline. At this time, to assess hemostasis, tourniquet was released. Total time of tourniquet was 102 minutes. It was noted that the proximal end of the lacerated artery was well controlled and no active bleeding was noted. It was noted that there was minimal active bleed from distal end. Additional electrocautery and ligation was utilized to control and engage hemostasis, which was achieved. Surgicel was applied to the area as low as 10 minutes of localized compression to the arterial surfaces to allow additional hemostasis and coagulation intraluminal. At this time, Surgicel was removed. Arteries were evaluated, and it was noted that hemostasis was achieved, and the site was lightly flushed with copious amounts of sterile saline. At this time, comminuted bone loss was appreciated and DBM bone graft was injected into areas of bone loss in the base of second metatarsal. Periosteum was re-approximated using 3-0 Vicryl. At this time, it was noted to immediately go to subcutaneous tissue layer and avoid layered closure. Subcutaneous tissue was re-approximated using 4-0 Vicryl. Skin was re-approximated using 4-0 nylon. The patient then received a total of 20 mL of 0.25% Marcaine in a local block type fashion to the saphenous nerve and anterior ankle nerves. Surgical site was then dressed with Xeroform, 4 x 4 gauze, Kerlix, Webril. The patient was placed in a posterior splint to be non-weightbearing postoperatively. POSTOPERATIVE CONDITION: The patient tolerated the anesthesia and procedure well and was escorted to the recovery room with vital signs stable and neurovascular status intact to the left foot including with special focus addressed to the first, second and third digits, which had prompt capillary refill. The patient had no points to complication. The patient will follow up on an outpatient basis with Dr. Houser. Yissel Hazel DPM Jeannine Houser DPM MTDClint
== END 2017-12-06 16:48 | disposition home or self-care (01) ==
LOC: C.SDS 06:13
PROVIDERS: ATTEND Podiatrist Foot & Ankle Surgery
DX: S82.842A Displaced bimalleolar fracture of left lower leg, initial encounter for closed fracture (principal); S93.322A Subluxation of tarsometatarsal joint of left foot, initial encounter
CPT/HCPCS: 28485; 28615; 73600; 73620; 82948; J0690; J1170; J1885; J2001; J2250; J2405; J2704; J2710; J2765; J3010

== ENCOUNTER 2018-07-09 07:38 | Emergency (ER) | payer MEDICARE, OTHER ==
[2018-07-09 07:38] VITALS: BMI 32.8
[2018-07-09 07:59] VITALS: RESP 18
--- NOTE | 2018-07-09 08:39 | C.PDOC ---
History Of Present Illness 53 y/o female c/o 2 weeks of right heel pain that is worse in mornings, not better with otc aleve and tramadol. pt denies any new injury. pt had surgery on right ankle in November 2017 for fracture. Time Seen by Provider: 07/09/18 07:53 Chief Complaint (Nursing): Lower Extremity Problem/Injury History Per: Patient, Family History/Exam Limitations: no limitations Onset/Duration Of Symptoms: Days (14) Current Symptoms Are (Timing): Still Present Severity: Moderate Recent travel outside of the [place]: No Past Medical History Reviewed: Historical Data, Nursing Documentation, Vital Signs Vital Signs: Last Vital Signs Temp 98.2 F 07/09/18 07:45 Pulse 87 07/09/18 07:45 Resp 18 07/09/18 07:45 BP 110/72 07/09/18 07:45 Pulse Ox 98 07/09/18 07:45 - Medical History PMH: Anxiety, Back Problems, Bipolar Disorder, Depression, Diabetes, Gastrointestinal Ulcer, Gall Bladder Disease, HTN, Kidney Stones, Chronic Kidney Disease Denies: Hepatitis, HIV, Seizures, Sexually Transmitted Disease Surgical History: Appendectomy, Cholecystectomy Other Surgeries: right ankle, left foot - [facility] Procedures ANESTH INJECT-SPIN CANAL (06/06/14) DRAINAGE OF SIGMOID COLON, ENDO, DIAGN (05/18/16) GROUP PSYCHOTHERAPY (11/12/17) INDIVID PSYCHOTHERAP NEC (02/12/15) INDIVIDUAL PSYCHOTHERAPY, COGNITIVE-BEHAVIORAL (11/12/17) INDIVIDUAL PSYCHOTHERAPY, SUPPORTIVE (11/12/17) INJECT STEROID (07/18/14) INJECT/INFUSE NEC (07/18/14) INJECTION INTO JOINT (07/18/14) LUMBOSAC SPINE X-RAY NEC (07/18/14) OTHER GROUP THERAPY (02/12/15) PERIPH NERVE DESTRUCTION (09/12/14) PHYSICAL THERAPY NEC (03/26/14) PSYCHIAT DRUG THERAP NEC (02/12/15) REPOSITION RIGHT TIBIA WITH INT FIX, OPEN APPROACH (11/25/17) REPOSITION RIGHT TIBIA, OPEN APPROACH (11/25/17) SPINAL CANAL INJECT NEC (06/06/14) Family History: States: Unknown Family Hx - Social History Hx Tobacco Use: Yes Hx Alcohol Use: No Hx Substance Use: Yes - Immunization History Hx Tetanus Toxoid Vaccination: No Hx Influenza Vaccination: No Hx Pneumococcal Vaccination: No Review Of Systems Constitutional: Negative for: Fever, Chills Musculoskeletal: Positive for: Foot Pain (right). Negative for: Back Pain, Leg Pain Skin: Negative for: Rash, Bruising Neurological: Negative for: Weakness, Numbness Physical Exam - Physical Exam Appears: Non-toxic, No Acute Distress Skin: Warm, Dry Extremity: Normal ROM (both lower extremities), Tenderness (to right heel on sole and bilateral aspects. well healde surgical scars. ), Other (mild right lateral malleolus swelling, from at right ankle. ) Pulses: Left Dorsalis Pedis: Normal, Right Dorsalis Pedis: Normal Neurological/Psych: Oriented x3, Normal Speech, Normal Cognition, Normal Motor, Normal Sensation ED Course And Treatment O2 Sat by Pulse Oximetry: 98 Medical Decision Making Medical Decision Makin weeks right heel pain, recent (november 2017) ankle fx that was surgically repaired. no new injury. eval for heel spur, plantar fasciitis. xray foot. 913 xray reviewed, wet read no fx, no heel spur. discussed with podiatry resident Arti; pt to f/u in [facility] on Wednesday for possible shot for plantar fasciiitis. discussed with pt; she prefers to wait until 07/[address] Houser in [facility]. recommend stopping Aleve and taking meloxicam instead. Disposition Counseled Patient/Family Regarding: Studies Performed, Diagnosis, Need For Followup, Rx Given - Disposition Referrals: Jeannine Houser DPM [Staff Provider] - Podiatry Clinic [Outside] [facility] [Outside] [facility] [Outside] Disposition: HOME/ ROUTINE Disposition Time: 09:20 Condition: IMPROVED Additional Instructions: Stop taking Aleve and take Meloxicam instead. Follow up either at [facility] this Wednesday (call for appointment, let them know to contact podiatry resident if unable to make appointment without) or keep appointment at [facility] pod[facility] clinic on 07/18. Prescriptions: Meloxicam 15 mg PO DAILY #10 tablet Instructions: Heel Pain (Caused by Plantar Fasciitis) (DC), Plantar Fasciitis Exercises Forms: [facility] (Divehi), General Discharge Instructions - Clinical Impression Clinical Impression: Pain of right heel
[2018-07-09 09:27] VITALS: BP 108/71; PULSE 82; TEMP 98.6
--- NOTE | 2018-07-09 10:29 | RAD ---
Date of service: 07/09/2018 PROCEDURE: Right Foot Radiographs. HISTORY: heel pain COMPARISON: Comparison is made to the previous study 01/31/2018 FINDINGS: BONES: Again noted are hardware fixation at the distal right tibia. No definite evidence of acute fracture. JOINTS: Arthritic degenerative changes are noted. SOFT TISSUES: Soft tissue swelling is noted. OTHER FINDINGS: None. IMPRESSION: No definite evidence of acute fracture or dislocation. Soft tissue swelling.
[2018-07-10 21:58] VITALS: O2SAT 98
== END 2018-07-09 09:30 | disposition home or self-care (01) ==
LOC: C.ER 07:38
DX: M79.671 Pain in right foot (principal); I12.9 Hypertensive chronic kidney disease with stage 1 through stage 4 chronic kidney disease, or unspecified chronic kidney disease; N18.9 Chronic kidney disease, unspecified; Z72.0 Tobacco use
CPT/HCPCS: 73630; 96372; 99284; J1885

== ENCOUNTER 2018-09-12 08:58 | Outpatient (CLI) | payer MEDICARE, OTHER, MEDICAID | END 2018-09-12 08:59 | disposition home or self-care (01) | LOC: C.MAMMO 08:58 | DX: Z12.31 Encounter for screening mammogram for malignant neoplasm of breast (principal) ==

== ENCOUNTER 2018-09-12 10:21 | Outpatient (CLI) | payer MEDICARE, OTHER | END 2018-09-12 10:22 | disposition home or self-care (01) | LOC: C.RADH 10:21 ==